=== PATIENT | male | born 1945 | race Caucasian/White ===

== ENCOUNTER → 2019-01-20 10:22 | Outpatient (CLI) | payer MEDICARE, BC ==
--- NOTE | 2019-01-23 11:12 | EC ---
PATIENT:LEONIDES LASSITER DATE OF SERVICE: 01/20/19 SEX: M MEDICAL RECORD: [id number] DATE OF : [birth year] [facility] AGE OF PAT[facility]: 73 ADMISSION DATE: 01/20/19 REFERRING PHYSICIAN: INTERPRETING PHYSICIAN: ELSY CALVILLO MD ECHOCARDIOGRAM REPORT ECHO CHARGES 4 ECHO COMPLETE Date: 01/20/19 CLINICAL DIAGNOSIS: HTN/MITRAL REGURG ECHOCARDIOGRAPHIC MEASUREMENTS (adult normal given) AC root (d.<3.7cm) 3.5 cm LV Septum d (<1.2 cm> 1.5 cm Valve Excursion 1.6 cm LV Septum (systole) 1.8 cm Left Atria (s.<4.0cm> 4.2 cm LVPW d(<1.2cm) 1.5 cm RV (d.<2.3cm) 3.4 cm LVPW (sytole) 1.8 cm LV diastole(<5.6CM) 5.6 cm MV E-F(>70mm/sec) cm LV systole 4.0 cm LVOT Diameter 2.0 cm MV exc.(>10mm) 1.6 cm Est.ejection fraction (50-75%) % DOPPLER: LVIT cm/sec A 57.0 cm/sec E 82.0 cm/sec LA cm/sec RVSP 19 mmHg LVOT 66 cm/sec AOP1/2T m/s Asc. Ao 87 cm/sec RVOT 63 cm/sec RA cm/sec PA 102 cm/sec AV Gradient Peak 3.01 mmHg AV Mean 1.55 mmHg AV Area 3.0 cm MV Gradient Peak 2.26 mmHg MV Mean 0.98 mmHg MV Area cm COMMENTS: Supervisor Telephone Clerks: 2 AUDRA ZURITA Academic Adviser: 3 Dr. Ruiz TAPE# PACS Pericardial Effusion N DATE OF SERVICE: Adequate 2D, color flow, spectral Doppler, and M-mode. LVH is present. LV internal dimensions are normal. Wall motion is normal. EF is greater than or equal to 55%. Aortic valve is tricuspid. No evidence of stenosis by Doppler interrogation. Left atrium is minimally dilated at 4.2 cm. Mitral valve shows no prolapse. Trace MR. Right-sided chambers grossly normal. Trace TR. TRANSINT:[id number] Voice Confirmation ID: [id number] DOCUMENT ID: [id number] ECHOCARDIOGRAM REPORT [id number] LEONIDES LASSITER,ELSY Venegas MD at 1112 CC: [id number] DICTATION DATE: 01/23/19830 SERVER ENGINEER: 01/23/19 1106 DEP CLI 01/20/19 [id number] [place] [address]
== END | disposition home or self-care (01) ==
LOC: D.HCCECHO 10:22
PROVIDERS: ATTEND Internal Medicine Interventional Cardiology
DX: I10 Essential (primary) hypertension (principal)

== ENCOUNTER 2020-05-30 11:01 | Day surgery (SDC) | payer MEDICARE, BC ==
[~2020-05-30] VITALS: Ht 177.8 cm; Wt 90.7 kg
--- NOTE | ~2020-05-30 | HEMODYNAMI ---
PATIENT:LEONIDES LASSITER MEDICAL RECORD: [id number] : 49 LOCATION:D.CAT ADMISSION DATE: 05/30/20 Generatedon:113:32 Patient name: LEONIDES LASSITER Patient #: [id number] SSN: [id number] : 1945 Date of study: 05/30/2020 Page: Of Hemodynamic Procedure Report Patient Data Patient Demographics Procedure consent was obtained First Name: LEONIDES Gender: Male Last Name: MAIKOL : 1945 Middle Initial: ANTONIO Age: 74 year(s) Patient #: [id number] Race: SSN: [id number] Additional ID: [id number] Contact details [address]: [address] [place] [address] State: [place] City: [place] Zip code: [address] Past Medical History Allergies: No known allergies Admission Admission Data Admission Date: 05/30/2020 Admission Time: 11:01 Arrival Date: 05/30/2020 Arrival Time: 0:00 Admit Source: Other Insurance Payor: Medicare [facility] #: [id number] Lab Results Lab Result Date: 05/30/2020 Lab Result Time: 0:00 Biochemistry Name Units Result Min Max BUN mg/dl 19 --(----)*- 7 18 Creatinine mg/dl 1 --(--*-)-- 0.6 1.3 eGFR ml/min 78 *-(----)-- 90 120 NONAFRICAN CBC Name Units Result Min Max Hematocrit % 43.5 --(*---)-- 42 54 Hemoglobin g/dl 14.7 --(-*--)-- 13.5 17.5 Procedure Procedure Types Cath Procedure Sedation Charges Moderate Sedation 10-24 minutes Peripheral Cath Diagnostic Procedure Expedition Supervisor Peripheral Procedures AFRO Diagnostic Procedure Description Procedure Date Procedure Date: 05/30/2020 Procedure Start Time: 13:07 Procedure End Time: 13:25 Procedure Staff Name Function Urvashi Botello RT Mateusz Jean RN Nurse Bala Foreman MD Performing Physician Kasie Zavala RT Monitor Indication Coronary risk factors Procedure Data Cath Procedure Fluoroscopy Diagnostic fluoroscopy Total fluoroscopy Time: 1.4 time: 1.4 min min Diagnostic fluoroscopy Total fluoroscopy dose: 321 dose: 321 mGy mGy Contrast Material Contrast Material Type Amount (ml) Isovue 370 85 Entry Location Entry Primary Successful Side Size Upsize Upsize Entry Closure Succes sful Closure Location (Fr) 1 (Fr) 2 (Fr) Remarks Device Remarks Femoral Right 5 Fr Exoseal artery Estimated blood loss: 5 ml Diagnostic catheters Device Type Used For End Catheter Placement DIAGNOSTIC UF 5Fr Procedure catheter ([id number]) Procedure Complications No complications Procedure Medications Medication Administration Route Dosage Oxygen etCO2 Nasal cannula 2 l/min Lidocaine 2% added to field 20 Heparin Flush Bag added to field 2 bags (1000units/500ml NS) 0.9% NaCl I.V. 100 ml/hr Versed I.V. 1 mg Fentanyl I.V. 50 mcg Versed I.V. 1 mg Fentanyl I.V. 50 mcg Versed I.V. 1 mg Hemodynamics Rest HGB: 14.7 (g/dl) Heart Rate: 72 (bpm) Snapshots Pre Cath Intra NCS Post Cath Vital Signs Time Heart Resp SPO2 etCO2 NIBP (mmHg) Rhythm Pain Sedation Rate (ipm) (%) (mmHg) Status Level (bpm) 12:56:36 73 16 98 0 167/70(118) NSR 0 (11) 10(A) , No pain 13:00:54 72 13 95 13.5 139/62(113) NSR 0 (11) 10(A) , No pain 13:05:14 73 10 96 0 130/63(101) NSR 0 (11) 9(A) , No pain 13:09:28 81 13 95 0 113/53(86) NSR 0 (11) 9(A) , No pain 13:13:40 70 10 94 0 109/57(90) NSR 0 (11) 9(A) , No pain 13:17:50 76 11 93 0 106/61(86) NSR 0 (11) 9(A) , No pain 13:22:00 70 12 97 34.6 110/59(96) NSR 0 (11) 10(A) , No pain 13:26:10 70 8 98 12.7 118/61(91) NSR 0 (11) 10(A) , No pain Medications Time Medication Route Dose Verified Delivered Reason Notes Eff ectiveness by by 12:55:56 Oxygen etCO2 2 Bala Buffie used for Nasal l/min [facility] Theodore Jean tomahawk weapon system operator cannula 12:56:03 Lidocaine 2% added 20ml Bala Bala for local to vial [facility] anesthetic field MD KRUGER 12:56:09 Heparin Flush added 2 Bala Bala used for Bag to bags [facility] procedure (1000units/500ml field MD KRUGER NS) 12:56:18 0.9% NaCl I.V. 100 Bala Buffie Per ml/hr St Theodore Jean RN physician 13:03:42 Versed I.V. 1 mg Bala Marlynie for AhsanTheodore Jean RN sedation 13:03:48 Fentanyl I.V. 50 Bala Buffie for mcg AhsanTheodore Jean RN sedation 13:06:00 Fentanyl I.V. 50 Bala Marlynie for mcg AhsanTheodore Jean RN sedation 13:06:57 Versed I.V. 1 mg Bala Buffie for AhsanTheodore Jean RN sedation 13:13:04 Versed I.V. 1 mg Bala Buffie for Ahsan Jean RN sedation Procedure Log Time Note 12:19:44 Informed consent obtained and on chart 12:20:06 Diagnostic Cath Status : Elective 12:20:33 Indication : Coronary risk factors 12:20:52 Arrival Date: 05/30/2020 12:00:00 AM 12:20:53 Admit Source: Other 12:20:56 Insurance Payor : Medicare 12:21:20 Patient allergic to No known allergies 12:22:06 Procedure Status Peripheral. 12:22:08 Time tracking: Regular hours (M-F 7:00 - 5:00) 12:22:12 Plan of Care:Hemodynamics will remain stable., Cardiac rhythm will remain stable., Comfort level will be maintained., Respiratory function will remain adequate., Patient/ family verbilizes understanding of procedure., Procedure tolerated without complication., Recovers from procedure without complications.. 12:22:19 H&P Date Dictated: 05/29/2020 Within 30 days and on chart.. 12:22:21 Pre-procedure instructions explained to patient. 12::22 Pre-op teaching completed and patient verbalized understanding. 12:22:24 Family unavailable. 12::25 Patient NPO since Midnight. 12::35 Stress Test: no; N/A ? 12::37 Sharps counted by scrub and verified by R.N. 12::37 Alarms reviewed by R. N. 12:24:04 Lab Result : Hemoglobin 14.7 g/dl 12:24:04 Lab Result : Hematocrit 43.5 % 12:24:04 Lab Result : eGFR NONAFRICAN 78 ml/min 12:24:04 Lab Result : BUN 19 mg/dl 12:24:04 Lab Result : Creatinine 1 mg/dl 12:24:28 Use device set Femoral Dx 12:45:00 Urvashi Botello RT(R) sent for patient. Start room use. 12:48:43 Patient received from Pre/Post Procedure Room to CCL 1 Alert and oriented. Tansferred to table in Supine position. 12:48:45 Warm blankets applied, and charity hugger turned on for patient comfort. 12:48:46 ECG and BP/O2 sat monitors applied to patient. 12:48:46 Correct patient and procedure confirmed by team. 12:55:20 Vital chart was started 12:55:56 Oxygen 2 l/min etCO2 Nasal cannula was administered by Landon Jean RN; used for procedure; Verbal order read back and verified. 12:56:03 Lidocaine 2% 20ml vial added to field was administered by Bala Foreman MD; for local anesthetic; Verbal order read back and verified. 12:56:09 Heparin Flush Bag (1000units/500ml NS) 2 bags added to field was administered by Bala Foreman MD; used for procedure; Verbal order read back and verified. 12:56:18 0.9% NaCl 100 ml/hr I.V. was administered by Landon Jean RN; Per physician; Verbal order read back and verified. 12:56:46 Is the patient allergic to Iodine/contrast media? No. 12:56:48 Was the patient premedicated? Yes 12:56:49 Is patient on blood thinner?No 12:56:50 Patient diabetic? No. 12:56:52 If diabetic: On Metformin? N/A 12:56:53 ----Pre-sedation anethsthesia assessment.---- 12:56:57 Previous problem with sedation/anesthesia? No ? 12:56:58 Snore? Yes 12:56:59 Sleep apnea? Yes 12:57:00 Deviated septum? No 12:57:01 Opens mouth fully? Yes 12:57:02 Sticks out tongue? Yes 12:57:05 Airway obstruction? Yes COPD 12:57:08 Dentures? No ? 12:57:12 Pre procedure: right dorsailis pedis pulse Inaccessible 12:57:16 Patient pain scale 0/10 ?. 12:57:21 IV patent on arrival in left antecubital with 0.9% NaCl at [facility]. 12:57:27 Full Disclosure recording started 12:57:28 Baseline sample Acquired. 12:57:34 Rhythm: sinus rhythm 12:57:40 Lab results completed and on chart. 12:57:44 Bilateral groins area was prepped with chlora-prep and draped in sterile fashion 12:57:47 Bag Decanter (2002S) opened to sterile field. 12:57:47 ACIST Syringe (16046) opened to sterile field. 12:57:48 Medline Cath Pack ([id number]) opened to sterile field. 12:57:50 ACIST Hand Control (94527) opened to sterile field. 12:57:51 ACIST Manifold (43325) opened to sterile field. 12:57:54 DIAGNOSTIC Multipack 5Fr catheter set (EX1322) opened to sterile field. 12:57:57 SHEATH 5FR Apex (PPI403) opened to sterile field. 12:57:59 EMERALD Guide Wire (478-408) opened to sterile field. 13:02:42 --------ALL STOP TIME OUT------ 13:02:43 Final Timeout: patient, procedure, and site verified with staff and physician. All members of the team are in agreement. 13:02:44 Right groin site verified by team. 13:02:48 Fire Safety Assessment: A--An alcohol-based skin anteseptic being used preoperatively., C--Open oxygen or nitrous oxide is being used., D--An ESU, laser, or fiber-optic light is being used. 13:02:50 Physical assessment completed. ASA score P 2 - A patient with mild systemic disease as per Bala Foreman MD. 13:03:01 Sedation plan: IV Moderate Sedation Medication:Versed, Fentanyl 13:03:01 2) 60-89 Mildly reduced kidney function, and other findings (as for stage 1) point to kidney disease. 13:03:02 Maximum allowable contrast dose (3.7 X eGFR X 0.75)219 ml. 13:03:42 Versed 1 mg I.V. was administered by Landon Jean RN; for sedation; Verbal order read back and verified. 13:03:48 Fentanyl 50 mcg I.V. was administered by Landon Jean RN; for sedation; Verbal order read back and verified. 13:06:00 Fentanyl 50 mcg I.V. was administered by Landon Jean RN; for sedation; Verbal order read back and verified. 13:06:57 Versed 1 mg I.V. was administered by Landon Jean RN; for sedation; Verbal order read back and verified. 13:07:46 Procedure started. 13:07:51 Local anesthetic to right femoral artery with Lidocaine 2% by Bala Foreman MD.INITIAL ACCESS ONLY 13:08:54 NEEDLE Tagora 18G 7cm Percutaneous Entry needle ([id number]) opened to sterile field. 13:10:06 A 5 Fr sheath was inserted into the Right Femoral artery 13:10:47 A DIAGNOSTIC UF 5Fr catheter ([id number]) was advanced over the wire and used for Procedure. 13:12:26 GLIDE WIRE ANGLE 260cm (NO5637) opened to sterile field. 13:13:04 Versed 1 mg I.V. was administered by Landon Jean RN; for sedation; Verbal order read back and verified. 13:13:21 Abdominal Aortagram was performed. 13:13:40 Injector settings: Ml/sec: 10, Volume: 20, 13:13:46 Right leg runoff performed. 13:18:53 Injector settings: Ml/sec: 10, Volume: 20, 13:18:57 Left leg runoff performed. 13:19:04 Injector settings: Ml/sec: 10, Volume: 20, 13:19:11 Right leg runoff performed. 13:19:56 Catheter removed. 13:20:00 EXOSEAL 5Fr (EX500) opened to sterile field. 13:20:04 Tegaderm 4 x 4 (1626W) opened to sterile field. 13:20:59 Sheath removed intact; hemostasis achieved with Exoseal to the Right Femoral artery. 13:21:01 Procedure ended.(Physican Out) 13:21:08 Fluoroscopy time 01.40 minutes. 13:21:17 Fluoroscopy dose: 321 mGy 13:21: Flurop Dose total: 321 13:21:25 Dose Area Product 18843 mGy/cm. 13:22:34 Contrast amount:Isovue 370 85ml. 13:22:37 Sharps counted by scrub and verified by R.N. 13:22:37 Maximum allowable dose exceeded? No. 13:22:41 Post-op/insertion site Right Femoral artery dressed using a 4 x 4 and Tegaderm. 13:22:46 Post right femoral artery:stable, soft, clean and dry 13:22:48 Post Procedure Pulses reassessed and unchanged 13:22:53 Post-procedure physical assessment completed. ASA score P 2 - A patient with mild systemic disease as per Bala Foreman MD. 13:22:56 Post procedure rhythm: unchanged. 13:22:59 Estimated blood loss: 5 ml 13:23:01 Patient needs reinforcement of post procedure teaching. 13:23:01 Post procedure instruction explained to patient.Patient verbalizes understanding. 13:23:18 Procedure type changed to Cath procedure, Sedation Charges, Moderate Sedation 10-24 minutes, Peripheral Cath Diagnostic Procedure, Expedition Supervisor Peripheral Procedures, AFRO Diagnostic 13:25:10 Procedure and supply charges have been captured, reviewed, submitted and are correct. 13:25:14 Procedure Complication : No complications 13:25:21 Vital chart was stopped 13:25:28 AFRO Findings: PVD: MD will discuss options w/ pt 13:25:30 See physician's report for complete and final results. 13:25:30 Operative report dictated upon procedure completion. 13:25:32 Report given to Pre/Post Procedure Room. 13:25:35 Patient transfered to Pre/Post Procedure Room with Stretcher. 13:25:37 Full Disclosure recording stopped 13:25:37 Procedure ended. 13:25:49 End room use (Document Last) 13:26:02 End room use (Document Last) 13:26:16 End room use (Document Last) Device Usage Item Name Manufacture Quantity Catalog Hospital Part Current Minimal Lot# / Number Charge Number Stock Stock Serial# Code [facility] 1 06061 738646 663232 191274 20 Syringe Medical (25911) Systems Inc Bag Decanter Microtek 1 2001S 018998 16888 240699 5 (2001S) Medical Inc. Medline Cath Medline 1 [id number] 191505 82678 134001 5 Pack ([id number]) ACIST Hand Acist 1 55068 658752 958364 930270 5 Control Medical (32978) Systems Inc ACIST Acist 1 20667 997863 429304 454546 5 Manifold Medical (69415) Systems Inc DIAGNOSTIC Cardinal 1 RM9283 615056 02753 960782 30 Multipack Elderscan 5Fr catheter set (HK5007) SHEATH 5FR Terumo 1 NGE979 743184 621799 173872 5 Apex (ZUA067) EMERALD Cardinal 1 502-455 629696 080064 338547 5 Guide Wire Health (502-455) NEEDLE DE Spirits Medical 1 H87912 338138 76447 967305 5 18G 7cm Percutaneous Entry needle (M44042) DIAGNOSTIC Cardinal 1 [id number] 317346 528942 575009 10 UF 5Fr Health catheter ([id number]) GLIDE WIRE Terumo 1 MN7090 463543 362829 835514 5 ANGLE 260cm (SU6598) EXOSEAL 5Fr Cardinal 1 EX500 334156 775899 743830 10 (EX500) Health Tegaderm 4 x 3M 1 1626W 394188 870277 098091 5 4 (1626W) Signature Audit Radiant Stage Time Signature Unsigned Intra-Procedure 05/30/2020 Kasie Zavala 1:26:02 PM RT(R) Intra-Procedure 05/30/2020 Landon Jean RN 1:26:16 PM Intra-Procedure 05/30/2020 Bala Foreman MD 1:26:41 PM Theodore KRUGER 05/30/2020 1:31:39 PM Intra-Procedure 05/30/2020 Kasie Zavala 1:32:04 PM RT(R) Intra-Procedure 05/30/2020 Bala Becker 1:32:18 PM Theodore KRUGER [id number] [place] [address]
[2020-05-30] MEDS ORDERED: METOPROLOL TART50 MG PO (11:15)
[2020-05-30] MEDS ORDERED: RELAFEN750 MG PO (11:15)
[2020-05-30] MEDS ORDERED: COZAAR50 MG PO (11:15)
[2020-05-30] MEDS ORDERED: BAYER CHEWABLE81 MG PO (11:16)
[2020-05-30] MEDS ORDERED: VITAMIN C500 M1 PO (11:16)
[2020-05-30] MEDS ORDERED: BUMEX2 MG PO (11:16)
[2020-05-30] MEDS ORDERED: OMEGA-3100 MG PO (11:17)
[2020-05-30] MEDS ORDERED: DULERA 200 MCG8.8 GM INH (11:17)
[2020-05-30] MEDS ORDERED: COMBIVENT RESPIM4 GM INH (11:18)
[2020-05-30] MEDS ORDERED: POTASSIUM99 M1 PO (11:18)
[2020-05-30] MEDS ORDERED: MAG-OX 400 MG400 MG PO (11:19)
[2020-05-30 11:43] VITALS: BP 178/76; Ht 177.8 cm; Wt 90.7 kg
[2020-05-30 11:48] LABS: BASOPHILS 0.1 % (0-2); EOSINOPHILS 0.7 % (0-7); HEMATOCRIT 43.5 % (42.0-54.0); HEMOGLOBIN 14.7 g/dL (13.5-17.5); IMMATURE GRANULOCYTES 0.1 % (0-5); LYMPHOCYTE ABS# 1.62 10x3/uL (1.32-3.57); LYMPHOCYTES 19.1 % (15-50); MCH 32.2 pg (26.0-34.0); MCHC 33.8 g/dL (31.0-37.0); MCV 95.2 fL (80.0-100.0); MEAN PLATELET VOLUME 10.4 fL (7.4-10.4); MONOCYTES 9.8 % (2-11); NEUTROPHIL ABS# 5.93 10x3/uL (1.78-5.38); NEUTROPHILS 70.2 % (40-80); PLATELET COUNT 172 10x3/uL (130-400); RBC 4.57 10x6/uL (4.20-6.10); RDW 12.7 % (11.5-14.5); WBC 8.5 10x3/uL (4.8-10.8)
[2020-05-30 12:06] LABS: ALT (SGPT) 31 U/L (10-68); CALC OSMOLALITY 270 mosm/kg (275-300); CALCIUM 9.3 mg/dL (8.5-10.1); CARBON DIOXIDE 29.9 mmol/L (21.0-32.0); CHLORIDE - SERUM 97 mmol/L (98-107); CHOLESTEROL, TOTAL 154 mg/dL (0-200); GLUCOSE 113 mg/dL (74-106); HDL CHOLESTEROL 52 mg/dL (32-96); LDL CHOLESTEROL 83 mg/dL (0-100); LDL-HDL RATIO 1.6 ratio (1.5-3.5); POTASSIUM - SERUM 4.3 mmol/L (3.5-5.1); SODIUM 134 mmol/L (136-145); TRIGLYCERIDE 97 mg/dL (30-200); UREA NITROGEN 19 mg/dL (7-18); eGFR NON AFRICAN AMERICAN 78 mL/min (90-120)
--- NOTE | 2020-05-30 13:45 | NUR ---
ARRIVES TO ROOM 5 PLACED ON MONITORS ALARMS ON, CALL LIGHT WITH IN REACH, IV INFUSING PER ORDERS , PT IS GIVEN INSTRUCTTIONS TO LIE FLAT WITH HEAD ON PILLOW, SEE POULTRY BONER.
--- NOTE | 2020-05-30 14:15 | NUR ---
PT MUMBLING FREQUENTLY , PT IS GIVEN TIME FRAME ON LAYING FLAT AND KEEPING HEAD ON PILLOW VERBALIZES UNDERSTANDING , VSS, SR , RIGHT GROIN SOFT WITH NO OOZING OR BLEEDING NOTED, NO PALPABLE HEMATOMA, RIGHT LOWER EXTREMITY WARM WITH DIMINISHED PEDAL PULSE, PT DENIES PAIN OR NEEDS , IV INFUSIING PER ORDERS, CALL LIGHT WITHIN REACH, SIDERAILS UP X 2
--- NOTE | 2020-05-30 14:30 | NUR ---
REPOSTIONED PT FOR COMFORT, VSS, SR , RIGHT GROIN STABLE / SOFT NO OOZING OR BLEEDING NO PALPALBE HEMATOMA, DIMINISHED PEDAL PULSES, SENSATION INTACT, DENIES PAIN OR NEEDS, IV INFUSING PER ORDERS, CALL LIGHT WITHIN REACH
--- NOTE | 2020-05-30 14:45 | NUR ---
PT RESTING QUIETLY , VSS, SR , RIGHT GROIN SOFT WITHOUT OOZING OR BLEEDING NO PALPABLE HEMATOMA, EXTREMITY WARM WITH DIMINISHED PEDAL PULSES, IV INFUSING PER ORDERS, DENIES PAIN OR NEEDS , URINAL GIVEN VOIDS 500CC CLEAR YELLOW URINE, CALL LIGHT WITHIN REACH, UPDATE GIVEN ON PLAN OF CARE, PT VERBALIZED UNDERSTANDING
--- NOTE | 2020-05-30 14:50 | NUR ---
PT PLACED IN SEMI FOWLERS POSITION, SANDWICH AND WATER GIVEN, DISCHARGE TEACHING STARTED. PT HAS NO NEEDS AT THIS TIME
--- NOTE | 2020-05-30 15:20 | NUR ---
IV REMOVED PER ORDERS CATHETER INTACT, RIGHT GROIN STABLE WITH NO OOZING OR BLEEDING NO PALPABLE HEMATOMA, DIMINISHED PEDAL PULSE, SKIN WARM AND INTACT, PT CONSUMED 100% SANDWICH. DISCHARGE INSTRUCTIONS REVIEWED WITH PT AND VERBALIZED UNDERSTANDING, VSS, SR ON MONITORS, DENIES PAIN OR NEEDS AT THIS TIME.
--- NOTE | 2020-05-30 15:38 | OP ---
PATIENT NAME: LEONIDES LASSITER MEDICAL RECORD: [id number] :49 LOCATION:D.CAT ADMISSION DATE: SURGEON: ELSY CALVILLO MD DATE OF OPERATION: 05/30/2020 PROCEDURE: AFRO. DESCRIPTION OF PROCEDURE: After right femoral artery was cannulated via modified Seldinger technique, the pigtail catheter was placed into the descending aorta at the level of the renal arterials and aortofemoral runoff was performed. 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 No evidence of dissection, no evidence of thrombus noted. Left system; the left iliac is occluded proximally with no true baking or other available approach for intervention from above. The distal appears to be deep femoral artery, constitutes late distally with poor distal runoff, no more than one vessel. The right iliac system; the right common iliac appears to be occluded in its mid portion. There is late filling again of the deep femoral artery. The superficial femoral artery itself again is totally occluded with minimal late filling distally with poor distal runoff. IMPRESSION AND PLAN: Severe peripheral vascular disease, does not appear amenable to percutaneous intervention. Dr. Hancock will be consulted for possible other options; however, this may be just simply minimal management, exercise and smoking cessation. TRANSINT:[id number] Voice Confirmation ID: [id number] DOCUMENT ID: [id number] ELSY CALVILLO MD at 1538 CC: [id number] DICTATION DATE: 05/30/20 1335 ICE CREAM VAN VENDOR: 05/30/20 1436 [facility] [address] [place] [address]
--- NOTE | 2020-05-30 15:40 | NUR ---
PT DISCHARGED PER ORDERS, ALL INSTRUCTIONS REVIEWED AND VERBALIZED UNDERSTANDING , VOIDED 200CC CLEAR , ASSISTED WITH DRESSING. PT DENIES PAIN OR NEEDS, TAKEN TO PRIVATE VEHICLE VIA WHEELCHAIR AND INSTRUCTIONS ALSO GIVEN TO PT DTR, NO QUESTIONS OR CONCERNS
== END 2020-05-30 15:40 | disposition home or self-care (01) ==
LOC: D.CATH 11:01
PROVIDERS: ATTEND Internal Medicine Interventional Cardiology
DX: I10 Essential (primary) hypertension (principal); I25.10 Atherosclerotic heart disease of native coronary artery without angina pectoris; E78.5 Hyperlipidemia, unspecified; I73.9 Peripheral vascular disease, unspecified

== ENCOUNTER → 2020-06-12 16:01 | Outpatient (CLI) | payer MEDICARE, BC ==
[2020-05-30 11:43] VITALS: BMI 28.6
[~2020-06-12 16:01] MED LIST: BAYER CHEWABLE81 MG PO; BUMEX2 MG PO; COMBIVENT RESPIM4 GM INH; COZAAR50 MG PO; DULERA 200 MCG8.8 GM INH; MAG-OX 400 MG400 MG PO; METOPROLOL TART50 MG PO; OMEGA-3100 MG PO; POTASSIUM99 M1 PO; RELAFEN750 MG PO; VITAMIN C500 M1 PO
== END | disposition home or self-care (01) ==
LOC: D.LAB 15:30
PROVIDERS: ATTEND Thoracic Surgery (Cardiothoracic Vascular Surgery)
DX: Z11.52 Encounter for screening for COVID-19 (principal)

== ENCOUNTER → 2020-06-13 10:56 | Outpatient (CLI) | payer MEDICARE, BC ==
[2020-05-30 11:43] VITALS: BMI 28.6
[2020-06-13 11:34] LABS: SARS-CoV-2 ANTIGEN NEGATIVE- SARS-COV-2 (NEGATIVE)
== END | disposition home or self-care (01) ==
LOC: D.RT 10:56
PROVIDERS: ATTEND Thoracic Surgery (Cardiothoracic Vascular Surgery)
DX: I73.9 Peripheral vascular disease, unspecified (principal)

== ENCOUNTER → 2020-06-19 10:49 | Outpatient (CLI) | payer MEDICARE, BC ==
[2020-05-30 11:43] VITALS: BMI 28.6
== END | disposition home or self-care (01) ==
LOC: D.US 10:49
PROVIDERS: ATTEND Thoracic Surgery (Cardiothoracic Vascular Surgery)
DX: I65.23 Occlusion and stenosis of bilateral carotid arteries (principal)

== ENCOUNTER 2020-07-18 11:48 | Inpatient (IN) | payer MEDICARE, BC ==
[~2020-07-18] VITALS: Ht 177.8 cm; Wt 98.9 kg
[2020-07-18] MEDS ORDERED: INCRUSE ELLI62.5 MCG INH (12:28)
[2020-07-18 13:08] LABS: BASOPHILS 0.1 % (0-2); EOSINOPHILS 0.6 % (0-7); HEMATOCRIT 41.8 % (42.0-54.0); IMMATURE GRANULOCYTES 0.4 % (0-5); LYMPHOCYTE ABS# 1.34 10x3/uL (1.32-3.57); MCH 32.6 pg (26.0-34.0); MCHC 33.5 g/dL (31.0-37.0); MCV 97.2 fL (80.0-100.0); NEUTROPHIL ABS# 4.94 10x3/uL (1.78-5.38); NEUTROPHILS 69.9 % (40-80); PLATELET COUNT 179 10x3/uL (130-400); RDW 13.1 % (11.5-14.5); WBC 7.1 10x3/uL (4.8-10.8)
[2020-07-18 13:18] LABS: APTT 32.4 SECONDS (22.8-39.4); INR 1.17 (0.85-1.17); PROTIME 13.8 SECONDS (11.6-15.0)
[2020-07-18 13:22] LABS: ALBUMIN 4.3 g/dL (3.4-5.0); ALKALINE PHOSPHATASE 64 U/L (30-120); ALT (SGPT) 34 U/L (10-68); BILIRUBIN - TOTAL 0.38 mg/dL (0.2-1.3); CALC OSMOLALITY 276 mosm/kg (275-300); CARBON DIOXIDE 32.5 mmol/L (21.0-32.0); CHLORIDE - SERUM 100 mmol/L (98-107); CREATININE - SERUM 0.7 mg/dL (0.6-1.3); GLUCOSE 116 mg/dL (74-106); POTASSIUM - SERUM 4.4 mmol/L (3.5-5.1); PROTEIN - SERUM 7.9 g/dL (6.4-8.2); SODIUM 137 mmol/L (136-145); UREA NITROGEN 17 mg/dL (7-18); eGFR NON AFRICAN AMERICAN > 90 mL/min (90-120)
[2020-07-18 13:33] LABS: BILIRUBIN NEGATIVE (NEGATIVE); KETONE NEGATIVE (NEGATIVE); NITRITE NEGATIVE (NEGATIVE); UROBILINOGEN NORMAL mg/dL (< 2)
[2020-07-23] VITALS (39 sets, daily range): BP systolic 82–196; BP diastolic 38–86; BMI 28.1; BMI 32.0
[2020-07-23] MEDS ORDERED: OMEGA-3100 MG PO (05:08)
--- NOTE | 2020-07-23 14:44 | NUR ---
ITA-3841-PLP'D TO CVICU S/P AORTOBIFEMORAL BYPASS GRAFT. VENT SETTINGS PER RT. ALL [id number] EQUIPMENT ATTACHED AND ALARMS SET. DOPPLER PULSES. DR RUSH HERE. DR MATTSON NOTIFIED BY RT. ABG'S DONE AND CXR.
--- NOTE | 2020-07-23 17:33 | NUR ---
ABG'S PER RT AND CALLED TO DR MATTSON. PT EXTUBATED TO 4LNC AT 1700.
--- NOTE | 2020-07-23 21:32 | NUR ---
TEMP AT 1900 101.1. AFTER ASSESSEMENT TEMP 101.[address] RUSH ON UNIT. UPDATED ON PT STATUS. INTO SEE PT. ORDER FOR BLOOD CX AND SPUTUM CX. ONE FROM [facility] AND ONE FROM [facility] ORDERED PER DR RUSH. DRAWN 2044 AND 2054. FAMILY AT AND SPOKE TO DR RUSH WELL MYSELF. QUESTIONS ANSWERED. VERBALIZED UNDERSTANDING. WILL CONT TO MONITOR CLOSELY.ABLE TO DOPPER PEDAL PULSES. DRESSINGS TO MIDLINE ABD AND BILATERAL FEMS INTACT. SURROUNDING TISSUE SOFT.
--- NOTE | 2020-07-23 22:13 | NUR ---
PT PAIN MANAGEMENT VIA EPIDURAL WITH FENT/BUP @6ML CONT WITH 3ML Q15MIN LMFT DOSE. ONE LMFT DOSE GIVEN PT HURTING AND REQUEST. RT TO BS TO SETUP BIPAP FOR NIGHT PT WEARS AT HOME AT NIGHT.
[2020-07-24] VITALS (20 sets, daily range): BP systolic 85–144; BP diastolic 40–65; BMI 32.5
[2020-07-24 05:39] LABS: ALBUMIN 2.8 g/dL (3.4-5.0); ALKALINE PHOSPHATASE 41 U/L (30-120); ALT (SGPT) 31 U/L (10-68); CALC OSMOLALITY 283 mosm/kg (275-300); CALCIUM 7.4 mg/dL (8.5-10.1); CARBON DIOXIDE 26.2 mmol/L (21.0-32.0); CHLORIDE - SERUM 106 mmol/L (98-107); GLUCOSE 154 mg/dL (74-106); MAGNESIUM - SERUM 2.8 mg/dL (1.8-2.4); PHOSPHOROUS 3.9 mg/dL (2.5-4.9); POTASSIUM - SERUM 4.3 mmol/L (3.5-5.1); PROTEIN - SERUM 5.4 g/dL (6.4-8.2); SODIUM 139 mmol/L (136-145); UREA NITROGEN 21 mg/dL (7-18); eGFR NON AFRICAN AMERICAN 78 mL/min (90-120)
[2020-07-24 05:53] LABS: HEMATOCRIT 31.7 % (42.0-54.0); HEMOGLOBIN 10.5 g/dL (13.5-17.5); MCH 32.4 pg (26.0-34.0); MCHC 33.1 g/dL (31.0-37.0); MCV 97.8 fL (80.0-100.0); MEAN PLATELET VOLUME 10.5 fL (7.4-10.4); RBC 3.24 10x6/uL (4.20-6.10); RDW 13.5 % (11.5-14.5); WBC 10.6 10x3/uL (4.8-10.8)
[2020-07-24 11:47] LABS: CHOL - HDL RATIO 2.8 ratio (2.3-4.9); LDL-HDL RATIO 1.2 ratio (1.5-3.5)
--- NOTE | 2020-07-24 15:04 | OP ---
PATIENT NAME: LEONIDES LASSITER MEDICAL RECORD: [id number] :49 LOCATION:[facility] D.CV06 ADMISSION DATE:07/23/20 SURGEON: ZACH RUSH MD DATE OF OPERATION: 07/23/2020 SURGEON: Zach Rush MD PROCEDURE PERFORMED: Aortobifemoral bypass for repair of abdominal aortic aneurysm and iliac disease. PREOPERATIVE DIAGNOSIS: Iliac and femoral stenosis and occlusion. POSTOPERATIVE DIAGNOSIS: Iliac and femoral stenosis and occlusion. ANESTHESIA: General endotracheal anesthesia and epidural anesthesia. BLOOD LOSS: 400 cc with Cell Saver. COMPLICATIONS: None. SPECIMENS: Aortic plaque and wall of aortic aneurysm excised. CONDITION: Stable. DISPOSITION: ICU. OPERATIVE FINDINGS: As expected completely calcified femorals bilaterally, not amenable to bypass. The superficial femoral was soft on the left, but had no lumen nor did have a lumen on the right and on the left the profunda femoral had a large posterior wall calcification, but had a good lumen on the left more distal profunda due to calcification of the proximal profunda was the outflow. DESCRIPTION OF PROCEDURE: After the case, the patient had Doppler of the left posterior tibial that he did not have preop where he had absent Doppler pulses on the left and the patient had both dorsalis pedis and posterior tibial on the right after bypass when he only had the right posterior tibial preop. Moderately calcified aorta at the renal origin with a reasonable neck for clamping and 3.5 cm aneurysm with significant thrombus. The distal aorta was oversewn. The inferior mesenteric artery was not patent, 14 x 7 bifurcated Hemashield graft was used. OPERATIVE INDICATION: Abdominal aortic aneurysm and severe iliac and femoral disease. PROCEDURE IN DETAIL: The patient was brought to the operating suite. General anesthesia was obtained, the patient was prepped and draped, both groins were opened. Common femoral, profunda femoral, and superficial femoral were dissected out, and on the left, this required dividing the profunda femoral vein to visualize the deep profunda down into the muscle level. Midline abdominal incision was made. Abdominal cavity was opened. NG tube was in appropriate position and the abdominal contents were inspected. The transverse mesocolon was lifted. Small bowel was packed off to the right, retroperitoneum was identified. Sigmoid colon was packed off to the left, OPERATIVE REPORT [id number] MAIKOL,LEONIDES ANTONIO retroperitoneum was incised and the inferior mesenteric vein was mobilized to the left up to the level of the renal vein where the neck of the aneurysm was encircled 270 degrees. More distally, there was severe calcification. Tunnels were made between the retroperitoneum in both groins and heparin was given. After the heparin circulated, inflow clamp was placed and the distal aorta was clamped. The aorta was divided. All bits of the grumous like material and chronic thrombus were removed. One lumbar vessel was included in the proximal suture line, end-to-end anastomosis was performed. Several pledgeted sutures on the back wall. The backbleeding of the distal aorta was oversewn with pledgeted suture. Grafts were brought through the retroperitoneum in both groins. Anastomosis to the profunda femoral, flow restored first of the proximal direction of distally. Good Doppler signals. Good augmentation. Protamine was given. Thorough antibiotic irrigation was performed, hemostasis was assured. The retroperitoneum was closed. Abdominal contents were returned to anatomic position and thorough irrigation was performed. Abdominal fascia closed with running PDS subcutaneous and skin clips were used and then on the groins. Both groins were closed in 3 layers. The patient is stable to ICU. TRANSINT:[id number] Voice Confirmation ID: [id number] DOCUMENT ID: [id number] ZACH RUSH MD at 1504 CC: CLAUDE YAÑEZ MD and ELSY CALVILLO MD [id number] DICTATION DATE: 07/23/20 165 RESIDENTIAL PROPERTY CONSULTANT: 07/23/20 2326 ADM IN [place] [id number] [place] [id number]
--- NOTE | 2020-07-24 19:34 | NUR ---
pt resting and moaning. just did IS with daughter. has been refusing. temp elevated. dr tovar aware. aggressive pulm exercise throughout night. explained to pt and daughter. off love. bp stable. remains of ivf. feet warm to touch. incision to abd and bilateral fems intact. surrounding tissue soft. will cont to monitor.
[2020-07-25] VITALS (23 sets, daily range): BP systolic 98–156; BP diastolic 46–65
[2020-07-25 05:21] LABS: HEMATOCRIT 31.3 % (42.0-54.0); HEMOGLOBIN 10.2 g/dL (13.5-17.5); MCH 32.2 pg (26.0-34.0); MCHC 32.6 g/dL (31.0-37.0); MCV 98.7 fL (80.0-100.0); MEAN PLATELET VOLUME 10.6 fL (7.4-10.4); RBC 3.17 10x6/uL (4.20-6.10); RDW 13.4 % (11.5-14.5); WBC 12.7 10x3/uL (4.8-10.8)
[2020-07-25 06:17] LABS: ALBUMIN 2.7 g/dL (3.4-5.0); ALKALINE PHOSPHATASE 45 U/L (30-120); BILIRUBIN - TOTAL 1.01 mg/dL (0.2-1.3); CALC OSMOLALITY 283 mosm/kg (275-300); CALCIUM 7.9 mg/dL (8.5-10.1); CARBON DIOXIDE 24.6 mmol/L (21.0-32.0); CHLORIDE - SERUM 106 mmol/L (98-107); CREATININE - SERUM 0.9 mg/dL (0.6-1.3); GLUCOSE 160 mg/dL (74-106); MAGNESIUM - SERUM 2.8 mg/dL (1.8-2.4); POTASSIUM - SERUM 4.5 mmol/L (3.5-5.1); PROTEIN - SERUM 5.8 g/dL (6.4-8.2); SODIUM 140 mmol/L (136-145); UREA NITROGEN 19 mg/dL (7-18); eGFR NON AFRICAN AMERICAN 88 mL/min (90-120)
[2020-07-25 06:18] LABS: ALT (SGPT) 52 U/L (10-68); PHOSPHOROUS 2.2 mg/dL (2.5-4.9)
--- NOTE | 2020-07-25 11:37 | NUR ---
A LINE DCD TIP INTACT
--- NOTE | 2020-07-25 13:27 | NUR ---
PTS DAUGHTER AT BEDSIDE THIS AM, ASSISTING IN ENCOURAGING PT TO DO IS AND FLUTTER HOURLY, PT COMPLAINT AT THIS TIME
[2020-07-26] VITALS (24 sets, daily range): BP systolic 119–146; BP diastolic 46–65
[2020-07-26 06:01] LABS: HEMATOCRIT 30.1 % (42.0-54.0); HEMOGLOBIN 9.6 g/dL (13.5-17.5); MCH 32.2 pg (26.0-34.0); MCHC 31.9 g/dL (31.0-37.0); MEAN PLATELET VOLUME 10.7 fL (7.4-10.4); RBC 2.98 10x6/uL (4.20-6.10); RDW 13.4 % (11.5-14.5); WBC 10.7 10x3/uL (4.8-10.8)
[2020-07-26 06:25] LABS: ALBUMIN 2.3 g/dL (3.4-5.0); ALKALINE PHOSPHATASE 56 U/L (30-120); ALT (SGPT) 48 U/L (10-68); BILIRUBIN - TOTAL 1.65 mg/dL (0.2-1.3); CALC OSMOLALITY 284 mosm/kg (275-300); CARBON DIOXIDE 23.7 mmol/L (21.0-32.0); CHLORIDE - SERUM 108 mmol/L (98-107); CREATININE - SERUM 0.9 mg/dL (0.6-1.3); GLUCOSE 159 mg/dL (74-106); MAGNESIUM - SERUM 2.6 mg/dL (1.8-2.4); PHOSPHOROUS 1.9 mg/dL (2.5-4.9); POTASSIUM - SERUM 4.7 mmol/L (3.5-5.1); PROTEIN - SERUM 5.8 g/dL (6.4-8.2); SODIUM 140 mmol/L (136-145); UREA NITROGEN 22 mg/dL (7-18); eGFR NON AFRICAN AMERICAN 88 mL/min (90-120)
--- NOTE | 2020-07-26 09:04 | NUR ---
Pt resting in bed and is awake now and off bipap. The Pt has 2L of O2 per NC on. Assessment and vitals per flow sheet, meds per MAR. The Pt has an epidural that is being managed the anesthesia. The Pt stated that he feels better today and is ready to get home. The pt still has an NGT to LIS and bowel sounds are hypoactive at this time. Pedal pulses are heard via doppler bilateraly. Pt was positioned for comfort, call light in reach, bed in low position. TV turned on per Pt request, will continue to monitor.
--- NOTE | 2020-07-26 10:44 | NUR ---
Nutrition Follow-up: POD 3 aorto bifemoral bypass. Continues to have NGT to LIS. Discussed in IDT rounds. Nursing reports hypoactive BS. KUB ordered. Diet: NPO x 3 days Wt: 230# (07/25) Labs noted: Glu 159, Ca 8.0, PO4 1.9, Mg 2.6, Alb 2.3 Meds noted: Protonix, D5 1/2NS KCl @ 75 -If unable to advance diet within the next 24 hrs, rec consider nutrition support (Procal?). -RD follow-up: 07/29
[2020-07-27] VITALS (27 sets, daily range): BP systolic 113–162; BP diastolic 49–87
--- NOTE | 2020-07-27 00:39 | NUR ---
PT REQUESTED TO BE PLACED ON BIPAP SO HE COULD SLEEP, BIPAP TURNED ON, PT RESTING IN BED. WILL CONTINUE TO MONITOR
--- NOTE | 2020-07-27 02:33 | NUR ---
PT REQUESTED TO HAVE BIPAP TAKEN OFF. BIPAP REMOVED. WILL CONTINUE TO MONITOR PT
--- NOTE | 2020-07-27 04:10 | NUR ---
WENT IN TO DRAW BLOOD. CVL DRESSING HAD COME UNATTACHED ON SUPERIOR SIDE OF DRESSING. OLD DRESSING WAS REMOVED, CLEAN INSERTION SITE AND APPLIED NEW DRESSING. TOLERATED WELL, NO COMPLAINTS AT THIS TIME. WILL CONTINUE TO MONITOR
[2020-07-27 05:09] LABS: BASOPHILS 0.1 % (0-2); EOSINOPHILS 0.1 % (0-7); HEMATOCRIT 28.2 % (42.0-54.0); HEMOGLOBIN 9.1 g/dL (13.5-17.5); IMMATURE GRANULOCYTES 0.2 % (0-5); LYMPHOCYTE ABS# 0.67 10x3/uL (1.32-3.57); LYMPHOCYTES 6.5 % (15-50); MCH 32.4 pg (26.0-34.0); MCHC 32.3 g/dL (31.0-37.0); MCV 100.4 fL (80.0-100.0); MONOCYTES 13.3 % (2-11); NEUTROPHIL ABS# 8.29 10x3/uL (1.78-5.38); NEUTROPHILS 79.8 % (40-80); PLATELET COUNT 138 10x3/uL (130-400); RBC 2.81 10x6/uL (4.20-6.10); RDW 13.2 % (11.5-14.5); WBC 10.4 10x3/uL (4.8-10.8)
[2020-07-27 05:10] LABS: INR 1.56 (0.85-1.17); PROTIME 17.3 SECONDS (11.6-15.0)
[2020-07-27 05:20] LABS: ALBUMIN 2.1 g/dL (3.4-5.0); ALKALINE PHOSPHATASE 59 U/L (30-120); ALT (SGPT) 47 U/L (10-68); CALC OSMOLALITY 293 mosm/kg (275-300); CALCIUM 8.1 mg/dL (8.5-10.1); CARBON DIOXIDE 25.1 mmol/L (21.0-32.0); CHLORIDE - SERUM 112 mmol/L (98-107); CREATININE - SERUM 0.9 mg/dL (0.6-1.3); GLUCOSE 147 mg/dL (74-106); LDH 202 U/L (85-227); MAGNESIUM - SERUM 2.8 mg/dL (1.8-2.4); POTASSIUM - SERUM 4.4 mmol/L (3.5-5.1); PROTEIN - SERUM 5.8 g/dL (6.4-8.2); SODIUM 144 mmol/L (136-145); UREA NITROGEN 23 mg/dL (7-18); eGFR NON AFRICAN AMERICAN 88 mL/min (90-120)
[2020-07-27 05:26] LABS: PHOSPHOROUS 2.5 mg/dL (2.5-4.9)
[2020-07-28] VITALS (24 sets, daily range): BP systolic 103–152; BP diastolic 46–85
[2020-07-28 06:32] LABS: BASOPHILS 0.2 % (0-2); EOSINOPHILS 0.6 % (0-7); HEMATOCRIT 29.6 % (42.0-54.0); HEMOGLOBIN 9.6 g/dL (13.5-17.5); IMMATURE GRANULOCYTES 0.3 % (0-5); LYMPHOCYTE ABS# 0.89 10x3/uL (1.32-3.57); LYMPHOCYTES 7.1 % (15-50); MCH 32.5 pg (26.0-34.0); MCHC 32.4 g/dL (31.0-37.0); MCV 100.3 fL (80.0-100.0); MEAN PLATELET VOLUME 10.8 fL (7.4-10.4); MONOCYTES 13.5 % (2-11); NEUTROPHIL ABS# 9.89 10x3/uL (1.78-5.38); NEUTROPHILS 78.3 % (40-80); RBC 2.95 10x6/uL (4.20-6.10); RDW 13.3 % (11.5-14.5); WBC 12.6 10x3/uL (4.8-10.8)
[2020-07-28 06:34] LABS: PLATELET COUNT 187 10x3/uL (130-400)
[2020-07-28 07:10] LABS: ALKALINE PHOSPHATASE 66 U/L (30-120); ALT (SGPT) 50 U/L (10-68); BILIRUBIN - TOTAL 2.97 mg/dL (0.2-1.3); CALC OSMOLALITY 294 mosm/kg (275-300); CALCIUM 8.4 mg/dL (8.5-10.1); CARBON DIOXIDE 23.7 mmol/L (21.0-32.0); CHLORIDE - SERUM 112 mmol/L (98-107); CREATININE - SERUM 0.9 mg/dL (0.6-1.3); GLUCOSE 153 mg/dL (74-106); MAGNESIUM - SERUM 2.7 mg/dL (1.8-2.4); PHOSPHOROUS 2.8 mg/dL (2.5-4.9); POTASSIUM - SERUM 4.8 mmol/L (3.5-5.1); PROTEIN - SERUM 6.1 g/dL (6.4-8.2); SODIUM 145 mmol/L (136-145); UREA NITROGEN 22 mg/dL (7-18); eGFR NON AFRICAN AMERICAN 88 mL/min (90-120)
--- NOTE | 2020-07-28 12:09 | NUR ---
PT REMOVED DRG TO CVL WITH "SCRATCHING"-SITE EXPOSED-CVL DRG DONE WITH PT SITTING UP IN CHAIR-
[2020-07-29] VITALS (22 sets, daily range): BP systolic 104–158; BP diastolic 51–79
[2020-07-29 04:18] LABS: BASOPHILS 0.1 % (0-2); EOSINOPHILS 1.4 % (0-7); HEMOGLOBIN 9.5 g/dL (13.5-17.5); IMMATURE GRANULOCYTES 0.7 % (0-5); LYMPHOCYTE ABS# 0.91 10x3/uL (1.32-3.57); LYMPHOCYTES 8.2 % (15-50); MCH 31.5 pg (26.0-34.0); MCHC 31.7 g/dL (31.0-37.0); MCV 99.3 fL (80.0-100.0); MEAN PLATELET VOLUME 10.6 fL (7.4-10.4); MONOCYTES 14.1 % (2-11); NEUTROPHILS 75.5 % (40-80); PLATELET COUNT 208 10x3/uL (130-400); RBC 3.02 10x6/uL (4.20-6.10); RDW 13.2 % (11.5-14.5); WBC 11.1 10x3/uL (4.8-10.8)
[2020-07-29 04:42] LABS: BILIRUBIN - TOTAL 3.35 mg/dL (0.2-1.3); CALCIUM 8.4 mg/dL (8.5-10.1); CARBON DIOXIDE 24.2 mmol/L (21.0-32.0); CREATININE - SERUM 1.1 mg/dL (0.6-1.3); POTASSIUM - SERUM 4.2 mmol/L (3.5-5.1); PROTEIN - SERUM 6.2 g/dL (6.4-8.2)
--- NOTE | 2020-07-29 06:44 | NUR ---
PATIENT RESTED WELL THROUGHOUT NIGHT. PATIENT CLEANSED WITH CHG AND PARTIAL LINEN CHANGE COMPLETED. PATIENT SITTING UP IN BED WITHOUT S/S OF DISTRESS. Fernie BAPTISTE RN
--- NOTE | 2020-07-29 08:20 | NUR ---
BOWEL SOUNDS POSITIVE. VSS. PAIN WELL CONTROLLED.DR RUSH HERE THIS AM.
--- NOTE | 2020-07-29 12:13 | NUR ---
Nutrition Follow-up: POD 6 aorto bifemoral bypass. NGT d/c'd 07/27. Continues to be NPO (x 6 days). Nursing reports positive BS this AM. Ileus resolved per KUB. Wt: 229.2# (07/29); 222.6# (07/23) Labs noted: Glu 139, Ca 8.4, Alb 2.0 Meds noted: Florajen, Protonix, D5 1/2NS KCl @ 75 -If unable to advance diet today, rec initiate nutrition support (Procal) if medically feasible. -RD follow-up: 07/31
--- NOTE | 2020-07-29 14:41 | NUR ---
OUT OF CHAIR WITH PT. PT MARCHED IN FRONT OF CHAIR BUT WAS UNABLE TO AMB.
[2020-07-30] VITALS (23 sets, daily range): BP systolic 106–153; BP diastolic 37–78
[2020-07-30 03:44] LABS: BASOPHILS 0.1 % (0-2); EOSINOPHILS 1.6 % (0-7); HEMATOCRIT 27.5 % (42.0-54.0); HEMOGLOBIN 8.9 g/dL (13.5-17.5); IMMATURE GRANULOCYTES 0.9 % (0-5); LYMPHOCYTE ABS# 1.32 10x3/uL (1.32-3.57); MCHC 32.4 g/dL (31.0-37.0); MCV 98.9 fL (80.0-100.0); MEAN PLATELET VOLUME 10.2 fL (7.4-10.4); MONOCYTES 6.3 % (2-11); NEUTROPHIL ABS# 7.92 10x3/uL (1.78-5.38); NEUTROPHILS 78.1 % (40-80); PLATELET COUNT 206 10x3/uL (130-400); RBC 2.78 10x6/uL (4.20-6.10); RDW 13.2 % (11.5-14.5); WBC 10.1 10x3/uL (4.8-10.8)
[2020-07-30 04:21] LABS: ANION GAP 13.2 mmol/L (8-16); BILIRUBIN - TOTAL 2.95 mg/dL (0.2-1.3); CALCIUM 8.4 mg/dL (8.5-10.1); CARBON DIOXIDE 22.5 mmol/L (21.0-32.0); POTASSIUM - SERUM 4.7 mmol/L (3.5-5.1); PROTEIN - SERUM 5.7 g/dL (6.4-8.2)
[2020-07-30 04:22] LABS: CREATININE - SERUM 1.7 mg/dL (0.6-1.3)
--- NOTE | 2020-07-30 19:20 | NUR ---
REPORT REC'D AND CARE ASSUMED, REC'D PT AWAKE, ALERT, AND ORIENTED, DAUGHTER AT BS, O2 @ 5LITERS VIA NC, RIJ CVL WITH D51/2NS @ 75CC/HR, MIDLINE ABD INCISION CDI, RIGHT AND LEFT GROIN DRSGS CDI, ENRIQUEZ PATENT DRAINING CLOUDY YELLOW URINE, LEFT LOWER LEG SCALY AND RED, RIGHT LEG RED, ABLE TO DOPPLER DORSALIS PEDIS AND POSTERIOR TIBIAL BILATERALLY, FEET COOL TO TOUCH, HEELS BRIDGED, PT REQUESTING ICE FOR BOTTLED WATER THAT DAUGHTER BROUGHT, PT DENIES PAIN OR OTHER NEEDS, BED IN LOW POSITION, CALL LIGHT IN REACH.
[2020-07-31] VITALS (24 sets, daily range): BP systolic 104–144; BP diastolic 35–61
[2020-07-31 06:14] LABS: BASOPHILS 0.1 % (0-2); EOSINOPHILS 3.9 % (0-7); HEMATOCRIT 26.3 % (42.0-54.0); HEMOGLOBIN 8.4 g/dL (13.5-17.5); IMMATURE GRANULOCYTES 1.7 % (0-5); LYMPHOCYTE ABS# 0.62 10x3/uL (1.32-3.57); LYMPHOCYTES 8.6 % (15-50); MCH 31.9 pg (26.0-34.0); MCHC 31.9 g/dL (31.0-37.0); MEAN PLATELET VOLUME 10.5 fL (7.4-10.4); MONOCYTES 14.7 % (2-11); NEUTROPHIL ABS# 5.11 10x3/uL (1.78-5.38); PLATELET COUNT 199 10x3/uL (130-400); RBC 2.63 10x6/uL (4.20-6.10); RDW 13.4 % (11.5-14.5); WBC 7.2 10x3/uL (4.8-10.8)
[2020-07-31 06:28] LABS: ALBUMIN 1.8 g/dL (3.4-5.0); BILIRUBIN - TOTAL 2.17 mg/dL (0.2-1.3); PROTEIN - SERUM 5.5 g/dL (6.4-8.2); VANCOMYCIN - RANDOM 22.8 ug/mL (10.0-20.0)
--- NOTE | 2020-07-31 07:29 | NUR ---
SHIFT REPORT RECEIVED. PT IN BED ON BIPAP. ATTEMPTED TO GET PT OUT OF BED AT THIS TIME. HE REFUSED. WAS VERY AGITATED WITH STAFF FOR TRYING TO GET HIM UP. CURRENTLY ON 5L O2 VIA NC. WILL CONTINUE TO MONITOR.
--- NOTE | 2020-07-31 08:05 | NUR ---
ASSISTED UP TO CHAIR. TOLERATED WELL. MEAL TRAY DELIVERED AND SET UP. CALL LIGHT IN REACH. WILL CONTINUE TO MONITOR.
--- NOTE | 2020-07-31 09:46 | NUR ---
AMBULATED WITH PHYSICAL THERAPY IN [address]. SOB NOTED. LEGS ELEVATED IN CHAIR. DR. LEVY IN UNIT. CONTINUE WITH IV FLUIDS AT THIS TIME. ENCOURAGE ORAL FLUIDS. WILL CONTINUE TO MONITOR.
--- NOTE | 2020-07-31 10:58 | NUR ---
Nutrition Reassessment/Follow-up: POD 8 aorto bifemoral bypass. Diet advanced to clear liquids yesterday after being NPO for several days. Tolerating clears. Active BS. -BM; +flatus. Diet: Clear Liquid Wt: 225# (07/30) Labs noted: BUN 43, Cre 2.0, GFR 35, Glu 137, Ca 8.0, Alb 1.8 Meds noted: Reglan, Protonix, D5 1/2NS @ 75 -Nutrition needs unchanged from initial assessment. -Rec advance diet as tolerated as medically feasible. Pt is at risk for refeeding syndrome 2/2 prolonged NPO status; will need to monitor electrolytes and cardiac function. Need PO4 and Mg levels. -RD follow-up: 08/02
--- NOTE | 2020-07-31 12:00 | NUR ---
SITTING UP IN CHAIR. MEAL TRAY DELIVERED AND SET UP. CUP OF ICE PROVIDED. WILL CONTINUE TO MONITOR.
--- NOTE | 2020-07-31 14:03 | NUR ---
AMBULATED ABOUT 75FT WITH PHYSICAL THERAPY. PHYSICAL THERAPY PUT PT BACK IN BED. PT STATES DISCOMFORT ON LOWER EXTREMITIES 09/05 DUE TO SWELLING. NO PAIN MEDICINE ORDERED. NOHEMI LEE WITH DR. RUSH NOTIFIED.
--- NOTE | 2020-07-31 17:00 | NUR ---
RIGHT IJ CVL DRESSING CHANGED. CVL NOT SUTURED IN. SECURED WITH DRESSING. NO SIGNS OF INFECTION NOTED.
--- NOTE | 2020-07-31 17:46 | NUR ---
SITTING UP IN BED EATING DINNER.
--- NOTE | 2020-07-31 19:20 | NUR ---
BEDSIDE SHIFT REPORT COMPLETED, PT AAOX4, DAUGHTER AT BEDSIDE, DISCUSSED PLAN OF CARE, PAIN CONTROL AND PLAN TO GET OOB IN MORNING BEFORE SHIFT CHANGE. PT REPOSTIONED FOR COMFORT. RIGHT IJ CVL WITH D51/2NS @75ML/HR. O2 VIA NC @3L. ENRIQUEZ DRAINING CLEAR YELLOW URINE. MOORE, WEAKNESS NOTED TO BLE. BLE WITH 2+ TO 3+ PITTING EDEMA, DORSAL AND PEDAL PULSES MARKED AND PALPABLE. DRESSING TO MIDLINE ABDOMEN, C/D/I, BILAT GROIN DRESSING INTACT WITH SEROUS DRAINAGE NOTED. PRN PERCOCET GIVEN PER PT REQUEST. CALL LIGHT WITHIN REACH. NO COMPLAINTS OR UNMET NEEDS VOICED.
--- NOTE | 2020-07-31 21:14 | NUR ---
PT REPORTED HE HAD ICE CREAM TODAY AND TOLERATED WITHOUT NAUSEA OR OTHER COMPLICATIONS, POSTIVE BOWEL SOUNDS AND FLATUS NOTED, ORDER FOR CLEAR LIQUIDS ADVANCED TO FULL LIQUIDS PER MD ORDER TO ADVANCE TOLERATED.
[2020-08-01] VITALS (24 sets, daily range): BP systolic 101–173; BP diastolic 44–131; Ht 177.8 cm; Wt 98.9 kg
--- NOTE | 2020-08-01 02:44 | NUR ---
PT APPEARS TO BE SLEEPING WELL DURING NIGHT, WILL ALLOW MUCH REST POSSIBLE AND WAKE IN A.M. FOR PO PAIN MED THEN OOB AFTER PER PLAN MADE WITH PT EARLY IN SHIFT OF CARE. CALL LIGHT WITHIN REACH, NO DISTRESS NOTED. PEDAL PULSES PALPABLE. WILL CONT TO MONITOR.
[2020-08-01 05:09] LABS: BASOPHILS 0.1 % (0-2); EOSINOPHILS 2.8 % (0-7); HEMATOCRIT 26.3 % (42.0-54.0); HEMOGLOBIN 8.4 g/dL (13.5-17.5); LYMPHOCYTE ABS# 0.83 10x3/uL (1.32-3.57); LYMPHOCYTES 11.2 % (15-50); MCH 31.7 pg (26.0-34.0); MCHC 31.9 g/dL (31.0-37.0); MCV 99.2 fL (80.0-100.0); MONOCYTES 14.1 % (2-11); NEUTROPHIL ABS# 5.04 10x3/uL (1.78-5.38); NEUTROPHILS 67.8 % (40-80); PLATELET COUNT 216 10x3/uL (130-400); RBC 2.65 10x6/uL (4.20-6.10); RDW 13.2 % (11.5-14.5); WBC 7.4 10x3/uL (4.8-10.8)
[2020-08-01 05:23] LABS: ALBUMIN 1.8 g/dL (3.4-5.0); ANION GAP 11.8 mmol/L (8-16); BILIRUBIN - TOTAL 1.58 mg/dL (0.2-1.3); CALCIUM 7.7 mg/dL (8.5-10.1); CARBON DIOXIDE 22.1 mmol/L (21.0-32.0); CREATININE - SERUM 2.3 mg/dL (0.6-1.3); POTASSIUM - SERUM 3.9 mmol/L (3.5-5.1); PROTEIN - SERUM 5.4 g/dL (6.4-8.2)
--- NOTE | 2020-08-01 06:51 | NUR ---
ASSISTED PT OOB TO RECLINER, PT TOLERATED ACTIVITY. LINENS CHANGED, BATHING SUPPLIES AT BEDSIDE FOR BATH, PT REQUEST TO WAIT UNTIL AFTER BREAKFAST. CALL LIGHT WITHIN REACH.
[2020-08-01 13:37] LABS: BILIRUBIN NEGATIVE (NEGATIVE); KETONE NEGATIVE (NEGATIVE); NITRITE NEGATIVE (NEGATIVE); UROBILINOGEN NORMAL mg/dL (< 2)
[2020-08-01 13:43] LABS: SQUAMOUS EPITHELIAL NONE SEEN HPF (0-4); WHITE CELLS - URINE 0-5 HPF (0-1)
[2020-08-01 13:44] LABS: AMORPHOUS SEDIMENT MODERATE LPF (NONE SEEN); BACTERIA FEW HPF (NONE SEEN); GRANULAR CAST 0-5 LPF (NONE SEEN)
--- NOTE | 2020-08-01 19:10 | NUR ---
bedside shift change completed. pt with 02 via NC @3L, will place on bipap tonight. right IJ CVL saline locked. alvarez draining concentrated, yellow urine. call light within reach, will cont to monitor.
--- NOTE | 2020-08-01 21:23 | NUR ---
Pt resting in bed, daughter left for night. Pt AAOX4. dressing to midline abdomen C/D/I, dressings to bilat groin with serous drainage noted and no adheared to skin, removed dressings and cleaned with CHG, incisions with ke intact, well approximated and no redness or drainage noted. pt had linens changed today but no bath, pt assisted in bed bath with soap and water with CHG, partial linen change at this time. call light within reach, denies complaints or unmet needs at this time.
--- NOTE | 2020-08-01 23:30 | NUR ---
PT PLACED ON HOME CPAP MACHINE PER RT, 02 @3L, NO DISTRESS NOTED. PT DENIES COMPLIANTS OR UNMET NEEDS.
[2020-08-02] VITALS (22 sets, daily range): BP systolic 98–138; BP diastolic 31–72
--- NOTE | 2020-08-02 05:27 | NUR ---
PT DECLINED PO PAIN MED PRIOR TO GETTING OOB BEFORE CHANGE OF SHIFT, PT DECLINED PAIN PILL AND GETTING OOB BEFORE 0700, PT AGREED TO GET OOB BEFORE BREAKFAST. CALL LIGHT WITHIN REACH, NO COMPLAINTS OR UNMET NEEDS VOICED.
[2020-08-02 06:23] LABS: ALBUMIN 1.7 g/dL (3.4-5.0); ANION GAP 11.8 mmol/L (8-16); BILIRUBIN - TOTAL 1.25 mg/dL (0.2-1.3); CALCIUM 7.9 mg/dL (8.5-10.1); CARBON DIOXIDE 22.7 mmol/L (21.0-32.0); CREATININE - SERUM 2.5 mg/dL (0.6-1.3); POTASSIUM - SERUM 3.5 mmol/L (3.5-5.1); PROTEIN - SERUM 5.2 g/dL (6.4-8.2)
[2020-08-02 07:16] LABS: BASOPHILS 0.1 % (0-2); EOSINOPHILS 2.6 % (0-7); HEMATOCRIT 25.7 % (42.0-54.0); HEMOGLOBIN 8.3 g/dL (13.5-17.5); IMMATURE GRANULOCYTES 5.6 % (0-5); LYMPHOCYTE ABS# 0.95 10x3/uL (1.32-3.57); LYMPHOCYTES 11.2 % (15-50); MCH 31.4 pg (26.0-34.0); MCHC 32.3 g/dL (31.0-37.0); MCV 97.3 fL (80.0-100.0); MEAN PLATELET VOLUME 10.7 fL (7.4-10.4); MONOCYTES 10.5 % (2-11); NEUTROPHIL ABS# 5.96 10x3/uL (1.78-5.38); PLATELET COUNT 220 10x3/uL (130-400); RBC 2.64 10x6/uL (4.20-6.10); RDW 13.3 % (11.5-14.5); WBC 8.5 10x3/uL (4.8-10.8)
--- NOTE | 2020-08-02 12:45 | NUR ---
Nutrition Follow-up: POD 10 aorto bifemoral bypass. Diet was advanced to regular. Pt is eating somewhat but c/o difficulty swallowing/sore throat and altered taste. Nursing reports hypoactive BS this AM. KUB shows stable to slightly worsened dilation of the large bowel, probably relating to a large bowel ileus. Noted Dulcolax & Colace have been added. Diet: Regular PO intake: 50% x 3 meals yesterday No new wt; last wt: 225# (07/30) Last BM: smear documented on land survey technician 08/01 Labs noted: Na 136, K+ 3.5, BUN 38, Cre 2.5, GFR 27, Glu 120, Ca 7.9, Alb 1.7 Meds noted: Lasix, Reglan, Florajen, Protonix, Colace, Dulcolax -Monitor bowel function. Encourage PO intake as medically feasible. -Ensure sent with lunch today for pt trial. -Need new wt. - follow-up: 08/05
[2020-08-03] VITALS (23 sets, daily range): BP systolic 113–137; BP diastolic 41–60
[2020-08-03 06:39] LABS: BASOPHILS 0.2 % (0-2); EOSINOPHILS 2.1 % (0-7); HEMATOCRIT 25.6 % (42.0-54.0); HEMOGLOBIN 8.5 g/dL (13.5-17.5); IMMATURE GRANULOCYTES 4.2 % (0-5); LYMPHOCYTE ABS# 1.02 10x3/uL (1.32-3.57); LYMPHOCYTES 10.9 % (15-50); MCH 32.1 pg (26.0-34.0); MCHC 33.2 g/dL (31.0-37.0); MCV 96.6 fL (80.0-100.0); MONOCYTES 9.3 % (2-11); NEUTROPHIL ABS# 6.86 10x3/uL (1.78-5.38); NEUTROPHILS 73.3 % (40-80); PLATELET COUNT 209 10x3/uL (130-400); RBC 2.65 10x6/uL (4.20-6.10); RDW 13.1 % (11.5-14.5); WBC 9.4 10x3/uL (4.8-10.8)
--- NOTE | 2020-08-03 07:11 | NUR ---
DR LOYA CALLED, UPDATED REGARDING PT STATUS, ORDERS RECEIVED.
[2020-08-03 07:31] LABS: ALBUMIN 1.9 g/dL (3.4-5.0); ANION GAP 13.7 mmol/L (8-16); BILIRUBIN - TOTAL 1.16 mg/dL (0.2-1.3); CARBON DIOXIDE 21.2 mmol/L (21.0-32.0); CREATININE - SERUM 2.7 mg/dL (0.6-1.3); POTASSIUM - SERUM 3.9 mmol/L (3.5-5.1); PROTEIN - SERUM 5.3 g/dL (6.4-8.2)
[2020-08-03 08:33] LABS: COMPLEMENT C4 0.1 mg/dL (17.4-52.2)
--- NOTE | 2020-08-03 13:53 | NUR ---
1340: DISCHARGED HOME WITH . ESCORTED TO EXIT VIA WHEELCHAIR.
[2020-08-03 14:39] LABS: CREATININE - URINE 121.5 mg/dL (30-125); PRO/CRE RATIO URINE 1.3 mg/g; PROTEIN - URINE 163.5 mg/dL (0.0-11.9)
[2020-08-03 14:47] LABS: BILIRUBIN NEGATIVE (NEGATIVE); KETONE NEGATIVE (NEGATIVE); NITRITE NEGATIVE (NEGATIVE); UROBILINOGEN NORMAL mg/dL (< 2)
[2020-08-03 14:48] LABS: SQUAMOUS EPITHELIAL NONE SEEN HPF (0-4); WHITE CELLS - URINE 0-5 HPF (0-1)
[2020-08-03 14:49] LABS: BACTERIA FEW HPF (NONE SEEN); GRANULAR CAST 0-5 LPF (NONE SEEN)
[2020-08-04] VITALS (24 sets, daily range): BP systolic 105–141; BP diastolic 37–55
[2020-08-04 08:25] LABS: ANION GAP 11.1 mmol/L (8-16); CARBON DIOXIDE 23.9 mmol/L (21.0-32.0); CREATININE - SERUM 2.7 mg/dL (0.6-1.3)
[2020-08-05] VITALS (24 sets, daily range): BP systolic 106–136; BP diastolic 42–59
[2020-08-05 06:05] LABS: BASOPHILS 0.2 % (0-2); EOSINOPHILS 2.2 % (0-7); HEMATOCRIT 24.2 % (42.0-54.0); HEMOGLOBIN 7.9 g/dL (13.5-17.5); IMMATURE GRANULOCYTES 1.3 % (0-5); LYMPHOCYTE ABS# 1.15 10x3/uL (1.32-3.57); LYMPHOCYTES 13.1 % (15-50); MCH 31.5 pg (26.0-34.0); MCHC 32.6 g/dL (31.0-37.0); MCV 96.4 fL (80.0-100.0); MEAN PLATELET VOLUME 9.7 fL (7.4-10.4); MONOCYTES 9.7 % (2-11); NEUTROPHIL ABS# 6.45 10x3/uL (1.78-5.38); NEUTROPHILS 73.5 % (40-80); PLATELET COUNT 218 10x3/uL (130-400); RBC 2.51 10x6/uL (4.20-6.10); RDW 13.3 % (11.5-14.5); WBC 8.8 10x3/uL (4.8-10.8)
[2020-08-05 06:17] LABS: ANION GAP 12.2 mmol/L (8-16); CALCIUM 8.1 mg/dL (8.5-10.1); CARBON DIOXIDE 24.7 mmol/L (21.0-32.0); CREATININE - SERUM 2.5 mg/dL (0.6-1.3); POTASSIUM - SERUM 3.9 mmol/L (3.5-5.1)
--- NOTE | 2020-08-05 11:06 | NUR ---
Nutrition Follow-up: POD 13 aorto bifemoral bypass. Tolerating diet; fair PO intake. +BM over the weekend. Diet: Regular PO intake: 60% avg x 3 meals (08/04) Wt: 219# (08/03) Labs noted: BUN 36, Cre 2.5, GFR 27, Glu 123, Ca 8.1 Meds noted: Lasix, Pepcid, Colace -Encourage PO intake and honor food preferences. -Offer nutrition supplements. -Monitor wt. -RD follow-up: 08/07
--- NOTE | 2020-08-05 12:34 | NUR ---
THANK YOU FOR THIS REFERRAL. WILL CONTINUE TO FOLLOW. DIASTOLIC B/P AND H/H ARE LOW TODAY. WILL REVIEW AGAIN TOMORROW. NOTIFIED RHIANNON BENNETT RN [facility] AND ROSA CORBIN, CV NURSE NOTIFIED. SHARA LANGLEY LPN, CLINICAL LIAISON
[2020-08-06] VITALS (15 sets, daily range): BP systolic 115–139; BP diastolic 44–67
[2020-08-06 04:08] LABS: BASOPHILS 0.2 % (0-2); HEMATOCRIT 27.8 % (42.0-54.0); HEMOGLOBIN 9.2 g/dL (13.5-17.5); IMMATURE GRANULOCYTES 1.3 % (0-5); LYMPHOCYTE ABS# 1.32 10x3/uL (1.32-3.57); LYMPHOCYTES 14.7 % (15-50); MCHC 33.1 g/dL (31.0-37.0); MEAN PLATELET VOLUME 9.9 fL (7.4-10.4); MONOCYTES 9.5 % (2-11); NEUTROPHIL ABS# 6.47 10x3/uL (1.78-5.38); NEUTROPHILS 72.3 % (40-80); PLATELET COUNT 198 10x3/uL (130-400); RBC 2.97 10x6/uL (4.20-6.10); RDW 15.2 % (11.5-14.5)
[2020-08-06 04:09] LABS: ANION GAP 11.7 mmol/L (8-16); CARBON DIOXIDE 25.3 mmol/L (21.0-32.0); CREATININE - SERUM 2.4 mg/dL (0.6-1.3)
[2020-08-06 04:10] LABS: MCV 93.6 fL (80.0-100.0)
[2020-08-06 11:11] LABS: ACLA - IGG AB <9 GPL U/mL (0-14); ACLA - IGM AB 27 MPL U/mL (0-12)
[2020-08-06 11:11] LABS: ANA REFLEX - DIRECT Negative (Negative); HEPATITIS C ANTIBODY 0.1 S/CO RAT (0.0-0.9)
--- NOTE | 2020-08-06 11:51 | MORECARE ---
CASE MANAGEMENT DISCHARGE SUMMARY PATIENT: LEONIDES LASSITER UNIT: [id number] ADM DATE: 07/23/20 AGE: 74 : 47 SEX: M ROOM/BED: [facility] AUTHOR: KAVITHA,DOC PHYSICIAN: REFERRING PHYSICIAN: TALIA RUSH MD DATE OF SERVICE: 08/06/20 Case Management Discharge Planning Summary DCP REVIEW SUMMARY ANTICIPATED D/C DATE: 08/06/2020 EXPECTED LOS : 14 CASE STATUS: DCP Initiated INITIAL REVIEW: 07/23/2020 INITIAL REVIEWER: Gabriela Ahmadi FINAL DISCHARGE DISPOSITION: : FINAL REVIEWER: FINAL REVIEW DATE: DCP Focus Questions & Answers DCP Screen QUESTION: ANSWER High Risk Factors: : None Walking limitation: Patient stated self rated walking limitation present? : No Age: : 65 - 79 Prior living environment: : Lives with others Disability ranking: : Grade 1: No significant disability DCP Evaluation QUESTION: ANSWER Patient's ability to cope with chronic illness : d. No chronic illness Would patient like to participate in any Care Coordination programs (if applicable): : Not applicable Mental health screen: : No mental health history DCP Re-evaluation QUESTION: ANSWER Would patient like to participate in any Care Coordination programs (if applicable): : Not applicable PATIENT: LEONIDES LASSITER ENCOUNTER: [id number] MEDICAL RECORD#: [id number] ADMISSION DATE: 07/23/2020 DISCHARGE DATE: ATTENDING MD: TALIA ORELLANA : AGE: 74 MARITAL STATUS: M DC PLAN ID: [id number] FACILITY: [facility] PRINTED ON: 08/06/20 11:51 CT All edits/amendments must be made on the electronic document DICTATION DATE: 08/06/20 115 WATER TREATMENT PLANT SUPERVISOR: DM 08/06/20 1151 RPT#: [id number] DC DATE: STATUS: ADM IN [facility] [address] [place] [address] END OF REPORT
--- NOTE | 2020-08-06 12:02 | MORECARE ---
CASE MANAGEMENT DISCHARGE SUMMARY PATIENT: LEONIDES LASSITER UNIT: [id number] ADM DATE: 07/23/20 AGE: 74 : 47 SEX: M ROOM/BED: [facility] AUTHOR: KAVITHADOC PHYSICIAN: REFERRING PHYSICIAN: TALIA RUSH MD DATE OF SERVICE: 08/06/20 Case Management Discharge Planning Summary DCP REVIEW SUMMARY ANTICIPATED D/C DATE: 08/06/2020 EXPECTED LOS : 14 CASE STATUS: DCP Initiated INITIAL REVIEW: 07/23/2020 INITIAL REVIEWER: Gabriela Ahmadi FINAL DISCHARGE DISPOSITION: : FINAL REVIEWER: FINAL REVIEW DATE: DCP Focus Questions & Answers DCP Screen QUESTION: ANSWER High Risk Factors: : None Walking limitation: Patient stated self rated walking limitation present? : No Age: : 65 - 79 Prior living environment: : Lives with others Disability ranking: : Grade 1: No significant disability DCP Evaluation QUESTION: ANSWER Patient's ability to cope with chronic illness : d. No chronic illness Family / Caregiver's ability to cope with chronic illness: : a. Adequate (ability to meet patient's medical needs, ensures patient attends medical appts.) Patient's current cognitive status: : *Oriented to person, place, situation, time and present Physical Status: : Independent with ADL's Does the patient have the ability to pay for or attain post discharge needs / services? : Yes Functional screen assessment: : Basic needs can adequately be met by self Living Arrangements: : Home with others Is there a likelihood that the patient will require additional services to return to the preadmission environment? : Yes Baseline cognitive status: : *Oriented to person, place, situation, time and present Results of this evaluation have been discussed with: : Patient Patient with capacity for self-care or can be cared for in same environment as prior to hospitalization? : Yes Comments: : PT STATES HIS SON DALIA LIVES WITH HIM. Medication Management: : Patient states can afford medications Pharmacy name(s): : [facility] IN [place] Does Patient have transportation to get home and to follow-up medical appointments when discharged from the hospital? : Yes Would patient like to participate in any Care Coordination programs (if applicable): : Not applicable Does the patient have electricity at home? : Yes Does the patient have running water in their house? : Yes Equipment in use: : CPAP Equipment agency name and contact information: : [facility] PATIENT Mental health screen: : No mental health history Psychosocial status: : Independent adult (65+) Abuse/Neglect: : None Resources / Services in place: : None Problems identified by the patient regarding discharge: : NONE DCP Re-evaluation QUESTION: ANSWER Would patient like to participate in any Care Coordination programs (if applicable): : Not applicable PATIENT: LEONIDES LASSITER ENCOUNTER: [id number] MEDICAL RECORD#: [id number] ADMISSION DATE: 07/23/2020 DISCHARGE DATE: ATTENDING MD: TALIA ORELLANA : AGE: 74 MARITAL STATUS: M DC PLAN ID: [id number] FACILITY: [facility] PRINTED ON: 08/06/20 12:02 CT All edits/amendments must be made on the electronic document DICTATION DATE: 08/06/201201 SOCIAL SERVICES COORDINATOR: IMANI 08/06/201201 RPT#: [id number] DC DATE: STATUS: ADM IN [facility] [address] [place] [address] END OF REPORT
--- NOTE | 2020-08-06 12:12 | MORECARE ---
CASE MANAGEMENT DISCHARGE SUMMARY PATIENT: LEONIDES LASSITER UNIT: [id number] ADM DATE: 07/23/20 AGE: 74 : 47 SEX: M [facility] AUTHOR: KAVITHADOC PHYSICIAN: REFERRING PHYSICIAN: TALIA RUSH MD DATE OF SERVICE: 08/06/20 Case Management Discharge Planning Summary DCP REVIEW SUMMARY ANTICIPATED D/C DATE: 08/06/2020 EXPECTED LOS : 14 CASE STATUS: DCP Initiated INITIAL REVIEW: 07/23/2020 INITIAL REVIEWER: Gabriela Ahmadi FINAL DISCHARGE DISPOSITION: : FINAL REVIEWER: FINAL REVIEW DATE: DCP Focus Questions & Answers DCP Screen QUESTION: ANSWER High Risk Factors: : None Walking limitation: Patient stated self rated walking limitation present? : No Age: : 65 - 79 Prior living environment: : Lives with others Disability ranking: : Grade 1: No significant disability DCP Evaluation QUESTION: ANSWER Patient and/or caregiver agree upon recommended discharge plan? : Yes Patient's ability to cope with chronic illness : d. No chronic illness Family / Caregiver's ability to cope with chronic illness: : a. Adequate (ability to meet patient's medical needs, ensures patient attends medical appts.) Patient's current cognitive status: : *Oriented to person, place, situation, time and present Functional screen assessment: : Unable to manage ADLs without immediate ongoing assistance Physical Status: : Independent with ADL's Does the patient have the ability to pay for or attain post discharge needs / services? : Yes Equipment needed for post hospitalization: : None Functional screen comments: : NEEDS PT Living Arrangements: : Home with others Is there a likelihood that the patient will require additional services to return to the preadmission environment? : Yes Baseline cognitive status: : *Oriented to person, place, situation, time and present Results of this evaluation have been discussed with: : Patient Patient with capacity for self-care or can be cared for in same environment as prior to hospitalization? : No Physical environment modification needed / anticipated for discharge: : No Preadmission facility can/cannot provide post hospital level of care needs: : Cannot - at higher level of care than preadmission Comments: : PT STATES HIS SON DALIA LIVES WITH HIM. Medication Management: : Patient states can afford medications Planned post hospital services available for patient? : Yes Pharmacy name(s): : [facility] IN [place] Planned post hospital services covered by insurance plan? : Yes Does Patient have transportation to get home and to follow-up medical appointments when discharged from the hospital? : Yes Would patient like to participate in any Care Coordination programs (if applicable): : Not applicable Does the patient have electricity at home? : Yes Does the patient have running water in their house? : Yes Equipment in use: : CPAP Equipment agency name and contact information: : [facility] PATIENT Mental health screen: : No mental health history Psychosocial status: : Independent adult (65+) Abuse/Neglect: : None Resources / Services in place: : None Problems identified by the patient regarding discharge: : NONE DCP Re-evaluation QUESTION: ANSWER Would patient like to participate in any Care Coordination programs (if applicable): : Not applicable PATIENT: LEONIDES LASSITER ENCOUNTER: [id number] MEDICAL RECORD#: [id number] ADMISSION DATE: 07/23/2020 DISCHARGE DATE: ATTENDING MD: TALIA ORELLANA : AGE: 74 MARITAL STATUS: M DC PLAN ID: [id number] FACILITY: [facility] PRINTED ON: 08/06/20 12:12 CT All edits/amendments must be made on the electronic document DICTATION DATE: 08/06/20 121 BURGLAR ALARM INSPECTOR: IMANI 08/06/20 121 RPT#: [id number] DC DATE: STATUS: ADM IN [facility] [address] [place] [address] END OF REPORT
--- NOTE | 2020-08-06 12:34 | MORECARE ---
CASE MANAGEMENT DISCHARGE SUMMARY PATIENT: LEONIDES LASSITER UNIT: [id number] ADM DATE: 07/23/20 AGE: 74 : 47 SEX: M ROOM/BED: D[facility] AUTHOR: KAVITHA,DOC PHYSICIAN: REFERRING PHYSICIAN: TALIA RUSH MD DATE OF SERVICE: 08/06/20 Case Management Discharge Planning Summary COMMENTS ENTERED DATE: 08/06/20 12:11 CT COMMENT TYPE: Discharge Planning REVIEWER: Gabriela Ahmadi CM MET WITH PATIENT TO DISCUSS DISCHARGE PLANNING AND ASSESS PATIENT NEEDS. PATIENT STATES DESIRE FOR INPATIENT REHAB. [facility] HAS ACCEPTED PATIENT. RIGHT OF CHOICE FOR SIGNED AND PLACED ON CHART. PATIENT STATES THAT HE MAY NEED SHOWER CHAIR AND POSSIBNLY GRAB BARS PLACED IN HIS BATHROOM UPON HIS DISCHARGE TO HOME. PATIENT DOES USE DME ([facility]) FOR CPAP MANCHINE. PATIENT STATES HIS SON DALIA LASSITER LIVES WITH HIM AND HELPS WITH HOUSEWORK AND COOKING. PATIENT ALSO STATES THAT HIS DAUGHTER KENIA MALAGON ([phone]) LIVES CLOSE AND IS AVAILABLE IF NEEDED FOR ASSISTANCE. PATIENT STATES THAT HIS LIVING ENVIROMENT IS SAFE AND HAS TRANSPORTATION HOME WHEN DISCHARGED, TO DOCTOR APPOINTMENTS AND CAN OBTAIN HIS MEDIATIONS IF NEEDED. DISCHARGE PLAN INCLUDES TRANSFER TO INPATIENT REHAB TODAY. Appended by Gabriela Ahmadi on 08/06/2020 12:25 CDT: IMM FORM DISCUSSED AND SIGNTURE OBTAINED. PATIENT VERBALIZED UNDERSTANDING, COPY PLACED ON PATIENT CHART. DCP REVIEW SUMMARY ANTICIPATED D/C DATE: 08/06/2020 EXPECTED LOS : 14 CASE STATUS: DCP Initiated INITIAL REVIEW: 07/23/2020 INITIAL REVIEWER: Gabriela Ahmadi FINAL DISCHARGE DISPOSITION: : FINAL REVIEWER: FINAL REVIEW DATE: DCP Focus Questions & Answers DCP Screen QUESTION: ANSWER High Risk Factors: : None Walking limitation: Patient stated self rated walking limitation present? : No Age: : 65 - 81 Prior living environment: : Lives with others Disability ranking: : Grade 1: No significant disability DCP Evaluation QUESTION: ANSWER Patient and/or caregiver agree upon recommended discharge plan? : Yes Patient's ability to cope with chronic illness : d. No chronic illness Family / Caregiver's ability to cope with chronic illness: : a. Adequate (ability to meet patient's medical needs, ensures patient attends medical appts.) Patient's current cognitive status: : *Oriented to person, place, situation, time and present Functional screen assessment: : Unable to manage ADLs without immediate ongoing assistance Physical Status: : Independent with ADL's Does the patient have the ability to pay for or attain post discharge needs / services? : Yes Equipment needed for post hospitalization: : None Functional screen comments: : NEEDS PT Living Arrangements: : Home with others Is there a likelihood that the patient will require additional services to return to the preadmission environment? : Yes Baseline cognitive status: : *Oriented to person, place, situation, time and present Results of this evaluation have been discussed with: : Patient Patient with capacity for self-care or can be cared for in same environment as prior to hospitalization? : No Physical environment modification needed / anticipated for discharge: : No Preadmission facility can/cannot provide post hospital level of care needs: : Cannot - at higher level of care than preadmission Comments: : PT STATES HIS SON DALIA LIVES WITH HIM. Medication Management: : Patient states can afford medications Planned post hospital services available for patient? : Yes Pharmacy name(s): : [facility] [place] Planned post hospital services covered by insurance plan? : Yes Does Patient have transportation to get home and to follow-up medical appointments when discharged from the hospital? : Yes Would patient like to participate in any Care Coordination programs (if applicable): : Not applicable Does the patient have electricity at home? : Yes Does the patient have running water in their house? : Yes Equipment in use: : CPAP Equipment agency name and contact information: : [facility] PATIENT Mental health screen: : No mental health history Psychosocial status: : Independent adult (65+) Abuse/Neglect: : None Resources / Services in place: : None Problems identified by the patient regarding discharge: : NONE DCP Re-evaluation QUESTION: ANSWER Would patient like to participate in any Care Coordination programs (if applicable): : Not applicable PATIENT: LEONIDES LASSITER ENCOUNTER: [id number] MEDICAL RECORD#: [id number] ADMISSION DATE: 07/23/2020 DISCHARGE DATE: ATTENDING MD: TALIA ORELLANA : AGE: 74 MARITAL STATUS: M DC PLAN ID: [id number] FACILITY: [facility] PRINTED ON: 08/06/20 12:34 CT All edits/amendments must be made on the electronic document DICTATION DATE: 08/06/20 1234 MAIL MANAGER: IMANI 08/06/20 1234 RPT#: [id number] [place] DATE: STATUS: ADM IN [facility] [address] [place] [address] END OF REPORT
[2020-08-06 14:10] LABS: SPE - A/G RATIO 0.9 (0.7-1.7); SPE - ALBUMIN 2.2 g/dL (2.9-4.4); SPE - ALPHA-1 GLOBULIN 0.3 g/dL (0.0-0.4); SPE - ALPHA-2 GLOBULIN 0.7 g/dL (0.4-1.0); SPE - BETA GLOBULIN 0.6 g/dL (0.7-1.3); SPE - GAMMA GLOBULIN 0.8 g/dL (0.4-1.8); SPE - M-SPIKE 0.1 g/dL (Not Observed); SPE - TOTAL PROTEIN 4.7 g/dL (6.0-8.5)
[2020-08-06] MEDS ORDERED: TOPROL XL25 MG PO (15:38)
[2020-08-06] MEDS ORDERED: LASIX40 MG PO (15:41)
[2020-08-06] MEDS ORDERED: COLACE100 MG PO (15:41)
[2020-08-06] MEDS ORDERED: POTASSIUM CHLO10 ME1 PO (15:47)
[2020-08-06] MEDS ORDERED: K-DUR20 MEQ (15:48)
--- NOTE | 2020-08-06 17:01 | MORECARE ---
CASE MANAGEMENT DISCHARGE SUMMARY PATIENT: LEONIDES LASSITER UNIT: [id number] ADM DATE: 07/23/20 AGE: 74 : 47 SEX: M ROOM/BED: D[facility] AUTHOR: KAVITHA,DOC PHYSICIAN: REFERRING PHYSICIAN: TALIA RUSH MD DATE OF SERVICE: 08/06/20 Case Management Discharge Planning Summary COMMENTS ENTERED DATE: 08/06/20 12:11 CT COMMENT TYPE: Discharge Planning REVIEWER: Gabriela Ahmadi CM MET WITH PATIENT TO DISCUSS DISCHARGE PLANNING AND ASSESS PATIENT NEEDS. PATIENT STATES DESIRE FOR INPATIENT REHAB. [facility] HAS ACCEPTED PATIENT. RIGHT OF CHOICE FOR SIGNED AND PLACED ON CHART. PATIENT STATES THAT HE MAY NEED SHOWER CHAIR AND POSSIBNLY GRAB BARS PLACED IN HIS BATHROOM UPON HIS DISCHARGE TO HOME. PATIENT DOES USE DME ([facility]) FOR CPAP MANCHINE. PATIENT STATES HIS SON GURINDER LASSITER LIVES WITH HIM AND HELPS WITH HOUSEWORK AND COOKING. PATIENT ALSO STATES THAT HIS DAUGHTER KENIA MALAGON ([phone]) LIVES CLOSE AND IS AVAILABLE IF NEEDED FOR ASSISTANCE. PATIENT STATES THAT HIS LIVING ENVIROMENT IS SAFE AND HAS TRANSPORTATION HOME WHEN DISCHARGED, TO DOCTOR APPOINTMENTS AND CAN OBTAIN HIS MEDIATIONS IF NEEDED. DISCHARGE PLAN INCLUDES TRANSFER TO INPATIENT REHAB TODAY. Appended by Gabriela Ahmadi on 08/06/2020 12:25 CDT: IMM FORM DISCUSSED AND SIGNTURE OBTAINED. PATIENT VERBALIZED UNDERSTANDING, COPY PLACED ON PATIENT CHART. DCP REVIEW SUMMARY ANTICIPATED D/C DATE: 08/06/2020 EXPECTED LOS : 14 CASE STATUS: DCP Initiated INITIAL REVIEW: 07/23/2020 INITIAL REVIEWER: Gabriela Ahmadi FINAL DISCHARGE DISPOSITION: : FINAL REVIEWER: FINAL REVIEW DATE: DCP Focus Questions & Answers DCP Screen QUESTION: ANSWER High Risk Factors: : None Walking limitation: Patient stated self rated walking limitation present? : No Age: : 65 - 81 Prior living environment: : Lives with others Disability ranking: : Grade 1: No significant disability DCP Evaluation QUESTION: ANSWER Patient and/or caregiver agree upon recommended discharge plan? : Yes Patient's ability to cope with chronic illness : d. No chronic illness Family / Caregiver's ability to cope with chronic illness: : a. Adequate (ability to meet patient's medical needs, ensures patient attends medical appts.) Patient's current cognitive status: : *Oriented to person, place, situation, time and present Functional screen assessment: : Unable to manage ADLs without immediate ongoing assistance Physical Status: : Independent with ADL's Does the patient have the ability to pay for or attain post discharge needs / services? : Yes Equipment needed for post hospitalization: : None Functional screen comments: : NEEDS PT Living Arrangements: : Home with others Is there a likelihood that the patient will require additional services to return to the preadmission environment? : Yes Baseline cognitive status: : *Oriented to person, place, situation, time and present Results of this evaluation have been discussed with: : Patient Patient with capacity for self-care or can be cared for in same environment as prior to hospitalization? : No Living arrangements comments: : Gurinder Lassiter (son) lives with patient. Physical environment modification needed / anticipated for discharge: : No Preadmission facility can/cannot provide post hospital level of care needs: : Cannot - at higher level of care than preadmission Comments: : PT STATES HIS SON GURINDER LIVES WITH HIM. Medication Management: : Patient states can afford medications Planned post hospital services available for patient? : Yes Pharmacy name(s): : [facility] [place] Planned post hospital services covered by insurance plan? : Yes Does Patient have transportation to get home and to follow-up medical appointments when discharged from the hospital? : Yes Would patient like to participate in any Care Coordination programs (if applicable): : Not applicable Does the patient have electricity at home? : Yes Does the patient have running water in their house? : Yes Equipment in use: : CPAP Equipment agency name and contact information: : [facility] PATIENT Mental health screen: : No mental health history Psychosocial status: : Independent adult (65+) Abuse/Neglect: : None Resources / Services in place: : None Problems identified by the patient regarding discharge: : NONE DCP Re-evaluation QUESTION: ANSWER Would patient like to participate in any Care Coordination programs (if applicable): : Not applicable PATIENT: LEONIDES LASSITER ENCOUNTER: [id number] MEDICAL RECORD#: [id number] ADMISSION DATE: 07/23/2020 DISCHARGE DATE: ATTENDING MD: TALIA ORELLANA : AGE: 74 MARITAL STATUS: M DC PLAN ID: [id number] FACILITY: [facility] PRINTED ON: 08/06/20 17:00 CT All edits/amendments must be made on the electronic document DICTATION DATE: 08/06/201699 VENEER TAPER: IMANI 08/06/201699 RPT#: [id number] DC DATE: STATUS: ADM IN [facility] [address] [place] [address] END OF REPORT
--- NOTE | 2020-08-06 18:50 | MORECARE ---
CASE MANAGEMENT DISCHARGE SUMMARY PATIENT: LEONIDES LASSITER UNIT: [id number] ADM DATE: 07/23/20 AGE: 74 : 47 SEX: M ROOM/BED: D[facility] AUTHOR: KAVITHA,DOC PHYSICIAN: REFERRING PHYSICIAN: TALIA RUSH MD DATE OF SERVICE: 08/06/20 Case Management Discharge Planning Summary COMMENTS ENTERED DATE: 08/06/20 12:11 CT COMMENT TYPE: Discharge Planning REVIEWER: Gabriela Ahmadi CM MET WITH PATIENT TO DISCUSS DISCHARGE PLANNING AND ASSESS PATIENT NEEDS. PATIENT STATES DESIRE FOR INPATIENT REHAB. [facility] HAS ACCEPTED PATIENT. RIGHT OF CHOICE FOR SIGNED AND PLACED ON CHART. PATIENT STATES THAT HE MAY NEED SHOWER CHAIR AND POSSIBNLY GRAB BARS PLACED IN HIS BATHROOM UPON HIS DISCHARGE TO HOME. PATIENT DOES USE DME ([facility]) FOR CPAP MANCHINE. PATIENT STATES HIS SON GURINDER LASSITER LIVES WITH HIM AND HELPS WITH HOUSEWORK AND COOKING. PATIENT ALSO STATES THAT HIS DAUGHTER KENIA MALAGON ([phone]) LIVES CLOSE AND IS AVAILABLE IF NEEDED FOR ASSISTANCE. PATIENT STATES THAT HIS LIVING ENVIROMENT IS SAFE AND HAS TRANSPORTATION HOME WHEN DISCHARGED, TO DOCTOR APPOINTMENTS AND CAN OBTAIN HIS MEDIATIONS IF NEEDED. DISCHARGE PLAN INCLUDES TRANSFER TO INPATIENT REHAB TODAY. Appended by Gabriela Ahmadi on 08/06/2020 12:25 CDT: IMM FORM DISCUSSED AND SIGNTURE OBTAINED. PATIENT VERBALIZED UNDERSTANDING, COPY PLACED ON PATIENT CHART. DCP REVIEW SUMMARY ANTICIPATED D/C DATE: 08/06/2020 EXPECTED LOS : 14 CASE STATUS: DCP Initiated INITIAL REVIEW: 07/23/2020 INITIAL REVIEWER: Gabriela Ahmadi FINAL DISCHARGE DISPOSITION: : FINAL REVIEWER: FINAL REVIEW DATE: DCP Focus Questions & Answers DCP Screen QUESTION: ANSWER High Risk Factors: : None Walking limitation: Patient stated self rated walking limitation present? : No Age: : 65 - 81 Prior living environment: : Lives with others Disability ranking: : Grade 1: No significant disability DCP Evaluation QUESTION: ANSWER Patient and/or caregiver agree upon recommended discharge plan? : Yes Patient's ability to cope with chronic illness : d. No chronic illness Family / Caregiver's ability to cope with chronic illness: : a. Adequate (ability to meet patient's medical needs, ensures patient attends medical appts.) Patient's current cognitive status: : *Oriented to person, place, situation, time and present Functional screen assessment: : Unable to manage ADLs without immediate ongoing assistance Physical Status: : Independent with ADL's Does the patient have the ability to pay for or attain post discharge needs / services? : Yes Equipment needed for post hospitalization: : None Functional screen comments: : NEEDS PT Living Arrangements: : Home with others Is there a likelihood that the patient will require additional services to return to the preadmission environment? : Yes Baseline cognitive status: : *Oriented to person, place, situation, time and present Results of this evaluation have been discussed with: : Patient Patient with capacity for self-care or can be cared for in same environment as prior to hospitalization? : No Living arrangements comments: : Gurinder Lassiter (son) lives with patient. Physical environment modification needed / anticipated for discharge: : No Preadmission facility can/cannot provide post hospital level of care needs: : Cannot - at higher level of care than preadmission Comments: : PT STATES HIS SON GURINDER LIVES WITH HIM. Medication Management: : Patient states can afford medications Planned post hospital services available for patient? : Yes Pharmacy name(s): : [facility] [place] Planned post hospital services covered by insurance plan? : Yes Does Patient have transportation to get home and to follow-up medical appointments when discharged from the hospital? : Yes Would patient like to participate in any Care Coordination programs (if applicable): : Not applicable Does the patient have electricity at home? : Yes Does the patient have running water in their house? : Yes Equipment in use: : CPAP Equipment agency name and contact information: : [facility] PATIENT Mental health screen: : No mental health history Psychosocial status: : Independent adult (65+) Abuse/Neglect: : None Resources / Services in place: : None Problems identified by the patient regarding discharge: : NONE DCP Re-evaluation QUESTION: ANSWER Would patient like to participate in any Care Coordination programs (if applicable): : Not applicable PATIENT: LEONIDES LASSITER ENCOUNTER: [id number] MEDICAL RECORD#: [id number] ADMISSION DATE: 07/23/2020 DISCHARGE DATE: 08/06/2020 ATTENDING MD: TALIA ORELLANA : AGE: 74 MARITAL STATUS: M DC PLAN ID: [id number] FACILITY: [facility] PRINTED ON: 08/06/20 18:49 CT All edits/amendments must be made on the electronic document DICTATION DATE: 08/06/201848 RAILROAD ACCOUNTANT: IMANI 08/06/201848 RPT#: [id number] DC DATE:08/06/20 STATUS: DIS IN [facility] [address] [place] [address] END OF REPORT
== END 2020-08-06 17:00 | DRG 270 ==
LOC: D.CVICU 07-23 05:13 → D.SDCHOLD 07-23 05:13 → D.CVICU 07-23 11:13
PROVIDERS: Emergency Medicine; Family Medicine; Internal Medicine Interventional Cardiology; Internal Medicine Nephrology; Internal Medicine Pulmonary Disease; ADMIT Thoracic Surgery (Cardiothoracic Vascular Surgery); ATTEND Thoracic Surgery (Cardiothoracic Vascular Surgery)
PROC: 5A09357 Assistance with Respiratory Ventilation, Less than 24 Consecutive Hours, Continuous Positive Airway Pressure (ICD-10-PCS; 2020-07-23)
PROC: 04100ZK Bypass Abdominal Aorta to Bilateral Femoral Arteries, Open Approach (ICD-10-PCS; principal; 2020-07-23 07:30)
DX: I70.203 Unspecified atherosclerosis of native arteries of extremities, bilateral legs (principal); J96.90 Respiratory failure, unspecified, unspecified whether with hypoxia or hypercapnia; J15.1 Pneumonia due to Pseudomonas; N17.9 Acute kidney failure, unspecified; K56.7 Ileus, unspecified; I71.4 Abdominal aortic aneurysm, without rupture; I10 Essential (primary) hypertension; F17.200 Nicotine dependence, unspecified, uncomplicated; J44.9 Chronic obstructive pulmonary disease, unspecified; G47.33 Obstructive sleep apnea (adult) (pediatric); D64.9 Anemia, unspecified; E83.41 Hypermagnesemia; J02.9 Acute pharyngitis, unspecified; I25.10 Atherosclerotic heart disease of native coronary artery without angina pectoris; E88.09 Other disorders of plasma-protein metabolism, not elsewhere classified

== ENCOUNTER 2020-08-06 17:41 | Inpatient (IN) | payer MEDICARE, BC ==
[~2020-08-06] VITALS: Ht 177.8 cm; Wt 96.8 kg
[~2020-08-06 17:41] MED LIST changes: +COLACE100 MG PO; +INCRUSE ELLI62.5 MCG INH; +K-DUR20 MEQ; +LASIX40 MG PO; +POTASSIUM CHLO10 ME1 PO; +TOPROL XL25 MG PO
[2020-08-06 19:58] VITALS: BP 146/58
[2020-08-07 00:23] VITALS: BP 146/58; BMI 31.9
[2020-08-07 07:19] LABS: BASOPHILS 0.2 % (0-2); EOSINOPHILS 2.2 % (0-7); HEMATOCRIT 31.4 % (42.0-54.0); HEMOGLOBIN 10.2 g/dL (13.5-17.5); IMMATURE GRANULOCYTES 0.8 % (0-5); LYMPHOCYTE ABS# 1.04 10x3/uL (1.32-3.57); LYMPHOCYTES 11.4 % (15-50); MCH 30.8 pg (26.0-34.0); MCHC 32.5 g/dL (31.0-37.0); MCV 94.9 fL (80.0-100.0); MONOCYTES 10.2 % (2-11); NEUTROPHIL ABS# 6.89 10x3/uL (1.78-5.38); NEUTROPHILS 75.2 % (40-80); PLATELET COUNT 216 10x3/uL (130-400); RBC 3.31 10x6/uL (4.20-6.10); RDW 15.1 % (11.5-14.5); WBC 9.2 10x3/uL (4.8-10.8)
[2020-08-07 07:26] LABS: ANION GAP 13.2 mmol/L (8-16); CALCIUM 8.3 mg/dL (8.5-10.1); CARBON DIOXIDE 24.8 mmol/L (21.0-32.0); CREATININE - SERUM 2.2 mg/dL (0.6-1.3)
[2020-08-07 07:51] VITALS: BP 147/55
--- NOTE | 2020-08-07 08:00 | NUR ---
PATIENT IS ALERT/ORIENT. SITTING UP IN BED TO EAT BREAKFAST. BED ALARM ON. CALL LIGHT WITHIN REACH. VOICES NO NEEDS AT THIS TIME. WILL CONTINUE WITH PLAN OF CARE
--- NOTE | 2020-08-07 09:59 | NUR ---
PATIENT IN REHAB ROOM. WORKING WITH PHYSICAL THERAPIST. DENIES ANY PAIN/DISC AT THIS TIME.
[2020-08-07 13:24] VITALS: Ht 177.8 cm; Wt 96.8 kg
--- NOTE | 2020-08-07 13:47 | NUR ---
MEPILEX REMOVED FROM COCCYX. STAGE II AREA MEASURING 4CM WIDE BY 6CM HIGH. SKIN CLEANED. NEW MEPILEX APPLIED
--- NOTE | 2020-08-07 15:00 | NUR ---
I have reviewed this patient and I concur with the Shift Assessment completed by the Licensed Practical Nurse today this shift.
--- NOTE | 2020-08-07 18:00 | NUR ---
PATIENT HELPED TO TOILET. LARGE BOWEL MOVEMENT. VOIDED LARGE AMOUNT OF URINE.
[2020-08-07 21:24] VITALS: BP 141/62
--- NOTE | 2020-08-08 01:10 | NUR ---
LYING IN BED. C/O BILATERAL FEET HURTING. ADJUSTED PILLOW AND REPOSITIONED FOR COMFORT. STATES NO FURTHER NEEDS. CALL LIGHT WITHIN REACH
[2020-08-08 07:42] VITALS: BP 139/69
--- NOTE | 2020-08-08 08:00 | NUR ---
PT RESTING IN BED WITH EYES OPEN CALL LIGHT IN REACH WILL MONITER
--- NOTE | 2020-08-08 17:05 | NUR ---
PT RESTING IN BED WITH EYES OPEN CALL LIGHT IN REACH WILL MONITER
--- NOTE | 2020-08-08 19:04 | NUR ---
BEDSIDE SHIFT REPORT, INFORMED PT THAT I WILL BE BACK SHORTLY TO DO ASSESSMENT, PT VERBALIZES UNDERSTANDING, PT RECEIVING RESP TREATEMENT AT THIS TIME
--- NOTE | 2020-08-08 19:45 | NUR ---
ASSESSMENT PER FLOW SHEET, VS OBTAINED PER [facility] WITH [facility]I WITH NO DRAINAGE NOTED, DUNCAN WRAPS IN PLACE WITH NO DRAINAGE NOTED, MEPILEX IN PLACE, PT REPORTS FLATUS, BM TODAY, AND VOIDING WITH NO DIFFICULTY, LEGS READJUSTED PER REQUEST, EXTRA PILLOW PROVIDED, PT REQUESTS PAIN MED WHEN DUE, INFORMED PT THAT I WILL CHECK ON THAT AND BRING IT WHEN DUE, PT VERBALIZES UNDERSTANDING, DENIES FURTHER NEEDS, BED IN LOW POSITION, SIDE RAILS X 2, CALL LIGHT IN REACH
--- NOTE | 2020-08-08 20:20 | NUR ---
PT AWAKE, WATCHING TV AND USING I.S. WITH GOOD EFFORT, PT DENIES NEEDS AT THIS TIME
[2020-08-08 20:42] VITALS: BP 111/58
--- NOTE | 2020-08-08 21:10 | NUR ---
PT AWAKE, ADM 2100 MEDS AND PAIN MED PER MD ORDERS, SEE EMAR, PT DENIES FURTHER NEEDS
--- NOTE | 2020-08-08 22:06 | NUR ---
PT RESTING WITH EYES CLOSED, RESP QUIET, NO DISTRESS NOTED, LEFT UNDISTURBED AT THIS TIME, PT HAS CPAP, FALL PRECAUTIONS IN PLACE
--- NOTE | 2020-08-09 00:20 | NUR ---
PT RESTING WITH EYES CLOSED, RESP QUIET, NO DISTRESS NOTED, LEFT UNDISTURBED AT THIS TIME, FALL PRECAUTIONS IN PLACE
--- NOTE | 2020-08-09 02:35 | NUR ---
PT RESTING WITH EYES CLOSED, RESP QUIET, NO DISTRESS NOTED, LEFT UNDISTURBED AT THIS TIME, FALL PRECAUTIONS IN PLACE
--- NOTE | 2020-08-09 05:30 | NUR ---
PT RESTING WITH EYES CLOSED, AROUSES TO SOFT VERBAL STIMULATION, PT UP TO BEDSIDE COMMODE PER THIS RN AND SHAHRAM FUNK, STRUCTURAL STEEL ENGINEER NURSE, PT VOIDED SMALL AMOUNT OF URINE, STATES "I'M SURE I WILL DO BETTER ONCE I GET UP TO THE TOILET, BUT I'M NOT READY RIGHT NOW", PT BACK TO BED, DENIES NEED FOR PAIN MED AT THIS TIME
--- NOTE | 2020-08-09 06:37 | NUR ---
PT MANAGER INVESTMENT BANKING LIGHT, REQUESTED AND ADM PAIN MED, WITH FRESH H20, DENIES FURTHER NEEDS, BED IN LOW POSITION, SIDE RAILS X 2, CALL LIGHT IN REACH
[2020-08-09 07:26] VITALS: BP 128/51
--- NOTE | 2020-08-09 07:28 | NUR ---
PT RESTING IN BED WITH EYES OPEN CALL LIGHT IN REACH NO PROBLEMS ILL MONITER
[2020-08-09 07:52] LABS: BASOPHILS 0.2 % (0-2); EOSINOPHILS 2.2 % (0-7); HEMATOCRIT 33.8 % (42.0-54.0); IMMATURE GRANULOCYTES 0.5 % (0-5); LYMPHOCYTE ABS# 0.85 10x3/uL (1.32-3.57); MCH 31.2 pg (26.0-34.0); MCHC 32.5 g/dL (31.0-37.0); MCV 95.8 fL (80.0-100.0); MEAN PLATELET VOLUME 10.2 fL (7.4-10.4); MONOCYTES 14.7 % (2-11); NEUTROPHIL ABS# 6.16 10x3/uL (1.78-5.38); NEUTROPHILS 72.4 % (40-80); PLATELET COUNT 239 10x3/uL (130-400); RBC 3.53 10x6/uL (4.20-6.10); RDW 14.5 % (11.5-14.5); WBC 8.5 10x3/uL (4.8-10.8)
[2020-08-09 08:07] LABS: ANION GAP 13.6 mmol/L (8-16); CALCIUM 8.5 mg/dL (8.5-10.1); CREATININE - SERUM 2.3 mg/dL (0.6-1.3); POTASSIUM - SERUM 4.6 mmol/L (3.5-5.1)
--- NOTE | 2020-08-09 18:18 | NUR ---
PT RESTING IN BED WITH EYES OPEN CALL LIGHT IN REACH NO PROBLEMS WILL MONITER
[2020-08-09 19:00] VITALS: BP 136/58
--- NOTE | 2020-08-09 19:52 | NUR ---
PATIENT RECEIVED SITTING UP IN BED. ASSESSMENT & VITAL SIGNS DONE.C/O SHORTNESS OF BREATH. RESPIRATORY CALLED & IS HERE. BED LOW. ALARM ON. CALL LIGHT & BEDSIDE TABLE WITHIN REACH. WILL CONTINUE TO MONITOR.
--- NOTE | 2020-08-09 23:14 | NUR ---
PATIENT USED CALL LIGHT FOR ASSIST TO BATHROOM. PATIENT OUT OF BREATH. SLOWLY RETURNED TO WHEELCHAIR. STOOD UP TO SINK & BRUSHED HIS TEETH. SLOWLY RETURNED TO WHEELCHAIR. PATIENT SITTING IN WHEELCHAIR AT BEDSIDE. RESPIRATORY CALLED & HELPED WITH PATIENT CPAP. PATIENT RETURNED TO BED SLOWLY TURNED LEGS INTO BED. BED IMMEDIATELY RAISED UP 90 DEGREES. BED LOW. PILLOWS UNDER FEET. ALARM ON. CALL LIGHT, BEDSIDE TABLE, & URINAL WITHIN REACH. WILL CONTINUE TO MOMITOR.
--- NOTE | 2020-08-10 04:46 | NUR ---
I have reviewed this patient and I concur with the Shift Assessment completed by the Licensed Practical Nurse today this shift.
[2020-08-10 07:00] VITALS: BP 144/66
--- NOTE | 2020-08-10 09:15 | NUR ---
HE IS SETTING UP IN THE BED EATING BREAKFAST. HE HAS MARVIN IN IS ABD, BOTH GROIN AREAS. HIS LEGS AND TESTICLES ARE SWOLLEN. THE CALL LIGHT IS WITHIN REACH AND THE BED ALARM IS ON. HE IS WEARING 2 LITERS NC.
[2020-08-10 19:00] VITALS: BP 180/75
--- NOTE | 2020-08-10 19:26 | NUR ---
PATIENT RECEIVED STTTING UP IN BED. ASSESSMENT & VITAL SIGNS DONE. NO C/O PAIN OR DISTRESS AT THIS TIME. MOD ASSIST TO BATHROOM IN & OUT OF WHEELCHAIR & BED PATIENT MOVES SLOW D/T SHORTNESS OF BREATH. DAUGHTER VISITNG. ALARM ON. CALL LIGHT WITHIN REACH. WILL CONTINUE TO MONITOR.
--- NOTE | 2020-08-10 23:00 | NUR ---
PATIENT USED CALL LIGHT FOR ASSIST TO BATHROOM. PATIENT INDEPENDENT IN & OUT OF BED. STANDBY & MINIMAL ASSIST ON & OFF COMMODE. TIME 45 MINUTES. PATIENT HAS TO SIT & REST PER MOVEMENT. PATIENT ASSIST WITH CPAP WHEN RETURNED TO BED. PATIENT HAD VOID ONLY. BED LOW. ALARM ON. SCDS ON. SWELLING TO LOWER & UPPER LEGS & TORSO DECREASED. NO PITTING. CALL LIGHT & BEDSIDE TABLE WITHIN REACH. WILL CONTINEUT TO MONITOR.
--- NOTE | 2020-08-11 01:00 | NUR ---
I have reviewed this patient and I concur with the Shift Assessment completed by the Licensed Practical Nurse today this shift.
--- NOTE | 2020-08-11 03:06 | NUR ---
PATIENT EYES CLOSED. CPAP CONTINUES. SCD'S ON & WORKING. BED LOW. ALARM ON. CALL LIGHT & BEDSIDE TABLE WITHIN REACH. WILL CONTINUE TO MONITOR.
--- NOTE | 2020-08-11 09:00 | NUR ---
HE IS USING THE WHEELCHAIR TO GET TO THE BATHROOM. HE IS VERY SLOW TO MOVE, SOB AT REST. HIS TESTICLES AND LEGS ARE SWOLLEN. HIS FEET ARE VERY DRY & FLAKEY. THE CALL LIGHT IS WITHIN REACH AND THE CHAIR ALARM IS ON.
[2020-08-11 19:00] VITALS: BP 147/56
--- NOTE | 2020-08-11 20:00 | NUR ---
PATIENT RECEIVED SITTING UP IN BED. DAUGHTER IN ROOM. VITAL SIGNS & ASSSESSMENT DONE. O2 2L NC CONTINUES FOR SHORTNESS OF BREATH. BED LOW. ALARM ON. CALL LIGHT WITHIN REACH. WILL CONTINUE TO MONITOR.
--- NOTE | 2020-08-12 01:30 | NUR ---
PATIENT USED CALL LIGHT FOR ASSIST. PATIENT SAT ON SIDE OF BED, RESTED. THEN TRANSFERRED INTO WHEELCHAIR, STANDBY ASSIST. RESTED. PATIENT SAT ON COMMODE. VOID ONLY. AGREED TO TAKE A BATH. SAT THERE LONGER. "I NEED A BREATHING TREATMENT." SAT IN CHAIR THIS NURSE CALLED RESPIRATORY. RESPIRATORY TALIA STATED "HE HAD NO PRN TREATMENT." KEN PERDOMO CALLED & ORDERED ALBUTEROL UPDRAFT. ORDER WRITTEN. RESPIRATORY CALLED.
--- NOTE | 2020-08-12 02:26 | NUR ---
PATIENT BREATHING 18 & EVEN. PAIN LEVEL 3. CPAP BACK ON. BED LOW. CALL LIGHT WITHIN REACH. ALARM ON. BEDISDE TABLE WITHIN REACH. WILL CONTINUE TO MONITOR.
--- NOTE | 2020-08-12 03:27 | NUR ---
PATIENT EYES CLOSED. CPAP CONTINUES. BED LOW. ALARM ON. CALL LIGHT & BESIDE TABLE WITHIN REACH. WILL CONTINUE TO MONITOR.
--- NOTE | 2020-08-12 05:09 | NUR ---
I have reviewed this patient and I concur with the Shift Assessment completed by the Licensed Practical Nurse today this shift.
[2020-08-12 06:51] LABS: BASOPHILS 0.4 % (0-2); EOSINOPHILS 5.1 % (0-7); HEMATOCRIT 28.9 % (42.0-54.0); HEMOGLOBIN 9.4 g/dL (13.5-17.5); IMMATURE GRANULOCYTES 0.4 % (0-5); LYMPHOCYTE ABS# 0.77 10x3/uL (1.32-3.57); LYMPHOCYTES 15.7 % (15-50); MCH 30.7 pg (26.0-34.0); MCHC 32.5 g/dL (31.0-37.0); MCV 94.4 fL (80.0-100.0); MEAN PLATELET VOLUME 10.2 fL (7.4-10.4); MONOCYTES 18.2 % (2-11); NEUTROPHIL ABS# 2.94 10x3/uL (1.78-5.38); NEUTROPHILS 60.2 % (40-80); RBC 3.06 10x6/uL (4.20-6.10); RDW 13.9 % (11.5-14.5); WBC 4.9 10x3/uL (4.8-10.8)
[2020-08-12 06:55] LABS: PLATELET COUNT 162 10x3/uL (130-400)
[2020-08-12 07:00] LABS: ANION GAP 11.3 mmol/L (8-16); CALCIUM 7.7 mg/dL (8.5-10.1); CARBON DIOXIDE 26.1 mmol/L (21.0-32.0); CREATININE - SERUM 2.2 mg/dL (0.6-1.3); POTASSIUM - SERUM 4.4 mmol/L (3.5-5.1)
[2020-08-12 07:55] VITALS: BP 120/53
--- NOTE | 2020-08-12 08:00 | NUR ---
PT RESTING IN BED WITH EYES OPEN CALL LIGHT IN REACH NO PROBLEMS WILL MONITER
--- NOTE | 2020-08-12 15:03 | NUR ---
Nutrition Follow-up: Nephrology consulted for "volume overload"- per MD notes. Diet: Cardiac PO intake: ~62% average x last 9 meals Last BM: 08/11/20 Wt: 222# (08/07/20)- no new weight Meds noted: bumex, miralax, k-dur Labs noted: BUN 30(H), Cr 2.2(H), GFR 31(L), Glu 118(H) Skin: PU stage II x 3 to coccyx/buttocks Recommend continue current diet/or per MD. Will continue to honor food preferences within diet restrictions. RD will re-assess 08/14/20.
--- NOTE | 2020-08-12 18:39 | NUR ---
PT RESTING IN BED WITH EYES OPEN CALL LIGHT IN REACH NO PROBLEMS WILL MONITER
[2020-08-12 19:37] VITALS: BP 115/44
--- NOTE | 2020-08-12 20:00 | NUR ---
ASSISED PT TO THE RESTROOM. HE APPEARS VERY ANXIOUS. HE IS RESTLESS, CONTINUES TO TELL THE OTHER NURSE AND I HOW TO TRANSFER HIM FROM BED TO WHEELCHAIR AND WHEELCHAIR TO TOILET. HE IS SHORT OF BREATH. O2 ON 2L VIA NC AND O2 SAT IS 90%. O2 INCREASED TO 4L AND PT REPORTS THAT HELPS. HE REPORTS PAIN 9/10 TO BILATERAL LOWER EXTREMITIES. PERCOCET AND XANAX GIVEN ORDERED. O2 TURNED BACK DOWN TO 2L AFTER GETTING HIM COMFORTABLE IN BED. O2 SAT IS NOW 93%. PREPARED HIS CPAP FOR BEDTIME USE. GAVE HIM FRESH WATER AND AN EXTRA BLANKET. IV TO RIGHT HAND FLUSHED WITHOUT DIFFICULTY. 2 BOTTLES OF ALBUMIN TO BE GIVEN ORDERED. BED ALARM ON AND CALL LIGHT WITHIN REACH. HIS DAUGHTER IS AT BEDSIDE.
[2020-08-13 07:31] VITALS: BP 136/56
--- NOTE | 2020-08-13 09:00 | NUR ---
PT USING URINAL DUE TO SWELLING WHEN URINAL WAS PULLED OUT CAUSED IRRITATION TO PENIS WITH MINIMAL BLEEDING NATHANIEL MALIK AND ARI GOVEA
--- NOTE | 2020-08-13 13:20 | NUR ---
PATIENT ADMITTS TO REHAB FROM AN ACUTE FLOOR. DR. BRYAN YAÑEZ IS HIS PCP. DME AT HOME IS A WALKER. DISCHARGE PLANS ARE FOR PATIENT TO RETURN TO HIS HOME. WILL CONTINUE TO FOLLOW WITH PATIENT.
[2020-08-13 15:05] LABS: ANION GAP 14.6 mmol/L (8-16); CALCIUM 8.6 mg/dL (8.5-10.1); CARBON DIOXIDE 27.6 mmol/L (21.0-32.0); CREATININE - SERUM 2.4 mg/dL (0.6-1.3); POTASSIUM - SERUM 4.2 mmol/L (3.5-5.1)
--- NOTE | 2020-08-13 18:37 | NUR ---
PT RESTING IN WHEELCHAIR CALL LIGHT IN REACH NO PROBLEMS WILL MONITER
[2020-08-14 07:05] LABS: BASOPHILS 0.3 % (0-2); EOSINOPHILS 5.3 % (0-7); HEMATOCRIT 27.5 % (42.0-54.0); HEMOGLOBIN 9.3 g/dL (13.5-17.5); LYMPHOCYTES 7.5 % (15-50); MCH 31.4 pg (26.0-34.0); MCHC 33.6 g/dL (31.0-37.0); MCV 93.3 fL (80.0-100.0); MEAN PLATELET VOLUME 8.1 fL (7.4-10.4); MONOCYTES 11.2 % (2-11); NEUTROPHILS 75.7 % (40-80); PLATELET COUNT 141 10x3/uL (130-400); RBC 2.95 10x6/uL (4.20-6.10); RDW 14.4 % (11.5-14.5); WBC 6.8 10x3/uL (4.8-10.8)
[2020-08-14 07:16] LABS: ANION GAP 15.4 mmol/L (8-16); CALCIUM 8.6 mg/dL (8.5-10.1); CARBON DIOXIDE 26.8 mmol/L (21.0-32.0); CREATININE - SERUM 2.1 mg/dL (0.6-1.3); MAGNESIUM - SERUM 2.1 mg/dL (1.8-2.4); POTASSIUM - SERUM 4.2 mmol/L (3.5-5.1)
--- NOTE | 2020-08-14 07:41 | NUR ---
PATIENT RESTING WELL. WATCHIN T.V. OXYGEN ON AT 3L PER N/C. BED ALARM ON. CALL LIGHT WTHIN REACH. VOICES NO NEEDS AT THIS TIME.
[2020-08-14 08:09] VITALS: BP 145/67
--- NOTE | 2020-08-14 09:56 | NUR ---
Nutrition Re-Assessment Diet: Cardiac PO intake: 100% x last 6 meals Last BM: 08/13/20 Wt: 222# (08/07/20) Meds noted: bumex, albumin, miralax, k-dur Labs noted: BUN 31(H), Cr 2.1(H), GFR 33(L), Glu 124(H) Skin: stage II PU x 3 to buttocks/coccyx Estimated nutrition needs: [id number] jojo (25-30kcal/kg IBW), 60-80gms protein (0.6-0.8gm/kg), 1900-2275mL fluid (or per MD) Nutrition diagnosis: Increased nutrient needs (amino acids and micronutrients) r/t increased demand for wound healing AEB stage II PU x 2 to coccyx/buttocks. Nutrition goals: -PO intake to continue =/>75% -Stable dry weight or appropriate weight loss of no more than ~1-2#/week DHS -Improved skin integrity/documented wound healing/improvment Recommendations/Interventions: -Continue current diet. Will continue to honor food preferences within diet restictions. -Will add Tommie BID for nutritionally aided wound healing. -Will continue to monitor PO intake and wt trend. -RD will follow-up within 7 days.
--- NOTE | 2020-08-14 10:55 | NUR ---
PATIENT IN REHAB ROOM. WORKING WITH PHYSICAL THERAPIST. DENIES ANY PAIN/DISC AT THIS TIME.
--- NOTE | 2020-08-14 13:21 | NUR ---
DR Gavino MIGUEL IN FOR CARE PLAN MEETING. NEW ORDERS RECEIVED
--- NOTE | 2020-08-14 16:00 | NUR ---
I have reviewed this patient and I concur with the Shift Assessment completed by the Licensed Practical Nurse today this shift.
--- NOTE | 2020-08-14 19:02 | NUR ---
RESPITORY THERAPIST IN PATIENTS ROOM. GIVING PATIENT A BREATHING TX
[2020-08-14 20:05] VITALS: BP 133/54
--- NOTE | 2020-08-15 04:59 | RHP ---
PATIENT: LEONIDES LASSITER MEDICAL RECORD: [id number] ACCOUNT: [id number] LOCATION:[facility] D.1109 : 47 ADMISSION DATE: 08/06/20 REHABILITATION HISTORY AND PHYSICAL EXAMINATION POST ADMISSION PHYSICIAN EXAMINATION POST ADMISSION PHYSICAL EXAMINATION AND HISTORY AND PHYSICAL ADMITTING DIAGNOSIS: Critical illness myopathy. HISTORY OF PRESENT ILLNESS: The patient is a 74-year-old gentleman who has got a history of COPD. He is a current every day smoker user. He has got coronary artery disease and had coronary artery bypass grafting in the past. 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 He experienced some postop respiratory failure and was put in the CV ICU on the vent. Pulmonary followed him throughout his stay. He was eventually extubated. The patient has been followed throughout his stay by cardiology, pulmonary and also CV surgery. He was also placed on vancomycin, but secondary to his renal functions this had to be adjusted. The patient has also been seen by nephrology throughout his stay, following at this time, at this time, he is able to sit up on the side of the bed with max assist. He has got proximal muscle weakness. He requires constant cueing to control his bleeding. He is unable to get out of bed by the afternoon because of his weakness. The patient has taken 10 steps, but he felt pretty dizzy. His therapist put him back in bed. He has progressed to 120 feet with full rest pace with CGA to ambulate with slow tarsha. He has decreased step length. He has noted decreased endurance. He needs to be placed in the rehab prior to going home. His labs will be monitored closely as well as his cognition. He may need medication adjustments, monitoring his pain control, decreased activity tolerance, decreased strength, balance deficit, decreased range of motion, gait disturbance. He will require intensive therapy to get back to his prior level of functioning. COMORBIDITIES: In this patient include acute kidney injury, anemia, anxiety, chronic back pain, chronic constipation, dyslipidemia, electrolyte imbalance, fatigue, hyperglycemia, hypoalbuminemia, metabolic acidosis, pain, postop anemia, renal failure, safety issues, shortness of breath and urinary retention. PAST MEDICAL HISTORY: Significant for hypertension, COPD, bronchitis, sleep apnea, chronic shortness of breath, chronic rhinitis, peripheral vascular disease, constipation, arthritis, chronic back pain, anxiety, edema, dyslipidemia. PAST SURGICAL HISTORY: Includes coronary artery bypass grafting and a knee scope. ALLERGIES: No known drug allergies. CURRENT MEDICATIONS: Include potassium 20 mEq daily. He is on Toprol 25 mg daily, furosemide 40 mg daily, omega 3 one cap daily, aspirin 81 mg daily, vitamin C 1000 mg daily, Perforomist 20 mcg daily, budesonide 0.5 mg b.i.d., Zofran 4 mg q.6 hours, Percocet 5/325 one tab q.4 hours p.r.n. and Colace 100 mg b.i.d. HABITS: Does have a history of tobacco use. HISTORY AND PHYSICAL [id number] LEONIDES LASSITER FAMILY HISTORY: Noncontributory. SOCIAL HISTORY: The patient hopes to return back home and get back to his prior level of functioning. REVIEW OF SYSTEMS: GENERAL: He does complain of weakness and fatigue. HEENT: Denies cold, cough or congestion. CARDIOVASCULAR: Denies any chest pain. PHYSICAL EXAMINATION: VITAL SIGNS: Stable, afebrile. GENERAL: A somewhat obese gentleman in no acute distress, alert upon exam. HEENT: Normocephalic and atraumatic. Mucosa moist. NECK: Supple. No lymphadenopathy. LUNGS: Clear at this time in the upper harvey although he does have decreased breath sounds in the bases. CARDIOVASCULAR: Regular rate and rhythm. ABDOMEN: Soft, benign, nondistended. Positive bowel sounds times 4. EXTREMITIES: No clubbing, cyanosis or edema. NEUROLOGIC: He does have some diffuse weakness. LABORATORY DATA: White count is 9.2, H&H 10.2 and 31.4 and platelet count is 216. Sodium 137, potassium 4.0, BUN and creatinine of 27 and 2.2 and blood sugar is noted to be 122. ASSESSMENT: This is a 74-year-old gentleman admitted to the rehab with a working diagnosis of critical illness myopathy. The patient has potential to make improvement. We instituted the following multidisciplinary therapies including, not limited to physical, occupational, respiratory, speech, nutritional services, prosthetics and orthotics. Given his complex medical condition and risks for more complications, rehabilitation services cannot be provided at a low level of care such as long term facility. PLAN: 1. Admit to [facility] for inpatient therapy to include the following disciplines; A. Physical therapy to improve gait, all transfer skills and bed mobility to a modified independent level. B. Occupational therapy to improve activities of daily living. C. Case management to help with discharge planning and placement options. D. Nutrition to assist with nutritional needs. E. Rehabilitation nursing to assist in monitoring the patient's underlying medical conditions and to assist with any type of bowel or bladder management. 2. The patient's current medication and medical care will be continued. 3. The patient will be placed on standard fall precautions. 3. The patient's estimated length of stay approximately 7-10 days. 4. We will discuss this patient during care team staff meeting today at noon. TRANSINT:[id number] Voice Confirmation ID: [id number] DOCUMENT ID: [id number] 08/09/2020 yadira CASTANO notes whether there has been none or any medical/functional HISTORY AND PHYSICAL [id number] LEONIDES LASSITER change since admission: - No change since preadmission screen. EYAD attests patient continues to be appropriate for IRF: - Continues to be appropriate. MANJINDER MIGUEL MD at 0459 CC: [id number] DICTATION DATE: 08/07/20 0855 CIVIL ENGINEER IN TRAINING: 08/07/20 1027 ADM IN [place] [id number] [place] [id number]
[2020-08-15 07:32] VITALS: BP 130/57
--- NOTE | 2020-08-15 10:00 | NUR ---
HE IS SETTING UP IN BED. HE IS SLOW TO SWALLOW IS PILLS, SOME HAVE TO BE CUT IN HALF. HE HAS BIALTERAL LOWER LEG EDEMA, WITH DRY FLAKEY SKIN. WE HAVE HIS LEGS ELEVATED ON PILLOWS. WE ARE TURNING HIM AND PLACING PILLOWS BEHIND HIM, HE DOES NOT LIKE THE WEDGE. HE HAS MARVIN IN HIS CHEST AND BILATERAL GROIN. THE CALL LIGHT IS WITHIN REACH AND THE BED ALARM IS ON.
[2020-08-15 13:03] LABS: ANION GAP 14.6 mmol/L (8-16); CARBON DIOXIDE 28.3 mmol/L (21.0-32.0); CREATININE - SERUM 2.2 mg/dL (0.6-1.3); POTASSIUM - SERUM 3.9 mmol/L (3.5-5.1)
[2020-08-15 20:23] VITALS: BP 137/63
--- NOTE | 2020-08-15 22:46 | NUR ---
RECIEVED PATIENT IN BED AWAKE AND VISTING WITH FAMILY, BED IN LOW LOCKED POSITION, SIDE RAIL UP X2, CALL LIGHT AND BEDSIDE TABLE IN REACH, EDEMA TO LOWER LEGS, FEET ELEVATED ON PILLOWS, SL LOCK TO RIGHT WRIST, MARVIN TO CHEST AND GROIN, O2 AT 3 LITERS VIA NC, NO ACUTE DISTRESS NOTED.
--- NOTE | 2020-08-16 00:06 | NUR ---
PATIENT STATED HE COULD NOT BREATH, O2 AT 72% AND PLUSE AT 118, PATIENT VERY ANXIOUS AND RESTLESS, RAPID RESPONCE CALLED, HOME CPAP STARTED BY RESPONCE TEAM, PATIENT O2 UP TO 93% AND PLUSE AT 106, HOB AT 45 DEGREES FOR COMFORT, WILL CONTINUE TO MONITOR.
--- NOTE | 2020-08-16 00:55 | NUR ---
RESPIRATORY THERAPIST AUNG HERE AND ADJUST O2 CPAP SETTINGS DUE TO PATIENT O2 SATURATION 83-87% PATIENT STILL ANXIOUS. BLOOD GASES DRAWN. DR MYRIAM HILLS. AFTER 10 MINUTES, O2 SATURATION 92% NOW WITH CPAP ON. PATIENT CALM AT PRESENT.
--- NOTE | 2020-08-16 01:16 | NUR ---
TALKED WITH PARACHUTE INSPECTOR. O2 INCREASED TO 5L. WILL CONTINUE TO MONITOR CLOSELY.
== END 2020-08-16 02:12 | disposition short-term general hospital (02) | DRG 92 ==
LOC: D.REHAB 17:41
PROVIDERS: Internal Medicine; ADMIT Emergency Medicine; ATTEND Emergency Medicine
DX: G72.81 Critical illness myopathy (principal); N17.9 Acute kidney failure, unspecified; E87.2 Acidosis; E87.1 Hypo-osmolality and hyponatremia; D64.9 Anemia, unspecified; F41.9 Anxiety disorder, unspecified; G89.29 Other chronic pain; E78.5 Hyperlipidemia, unspecified; E87.8 Other disorders of electrolyte and fluid balance, not elsewhere classified; K59.09 Other constipation; R53.83 Other fatigue; R73.9 Hyperglycemia, unspecified; R06.02 Shortness of breath; R33.9 Retention of urine, unspecified; I73.9 Peripheral vascular disease, unspecified; E66.9 Obesity, unspecified; G47.33 Obstructive sleep apnea (adult) (pediatric); R26.2 Difficulty in walking, not elsewhere classified; Z68.31 Body mass index [BMI] 31.0-31.9, adult

== ENCOUNTER 2020-08-16 02:05 | Inpatient (IN) | payer MEDICARE, BC ==
[~2020-08-16] VITALS: Ht 177.8 cm; Wt 96.1 kg
[2020-08-16] VITALS (22 sets, daily range): BP systolic 90–201; BP diastolic 53–96; Ht 177.8 cm; Wt 96.1 kg
--- NOTE | 2020-08-16 02:20 | NUR ---
PT RECIEVED VIA HOSPITAL BED WITH NURSE AT BEDSIDE. TRANSFERED TO ICU BED ATTACHED TO MONITOR. SEE ADMISSON ASSESSMENT FOR FINDINGS, BED IN LOWEST POSITITON, CALL LIGHT IN REACH. WILL CONTINUE TO MONITOR
[2020-08-16 03:14] LABS: BASOPHILS 0.2 % (0-2); EOSINOPHILS 4.2 % (0-7); HEMATOCRIT 26.7 % (42.0-54.0); HEMOGLOBIN 8.9 g/dL (13.5-17.5); LYMPHOCYTES 3.6 % (15-50); MCH 31.4 pg (26.0-34.0); MCHC 33.4 g/dL (31.0-37.0); MCV 94.1 fL (80.0-100.0); MONOCYTES 7.3 % (2-11); NEUTROPHILS 84.7 % (40-80); PLATELET COUNT 165 10x3/uL (130-400); RBC 2.83 10x6/uL (4.20-6.10); RDW 14.2 % (11.5-14.5)
[2020-08-16 03:15] LABS: WBC 9.7 10x3/uL (4.8-10.8)
[2020-08-16 03:19] LABS: APTT 33.1 SECONDS (22.8-39.4); INR 1.42 (0.85-1.17); PROTIME 16.1 SECONDS (11.6-15.0)
[2020-08-16 03:31] LABS: D-DIMER-QUANTITATIVE 5.07 ug/mLFEU (0.20-0.54)
[2020-08-16 03:48] LABS: ALBUMIN 4.7 g/dL (3.4-5.0); ALKALINE PHOSPHATASE 87 U/L (30-120); ALT (SGPT) 41 U/L (10-68); BILIRUBIN - TOTAL 0.75 mg/dL (0.2-1.3); CALC OSMOLALITY 289 mosm/kg (275-300); CALCIUM 8.7 mg/dL (8.5-10.1); CARBON DIOXIDE 27.8 mmol/L (21.0-32.0); CHLORIDE - SERUM 99 mmol/L (98-107); CKMB 1.3 U/L (0.0-3.6); CREATINE KINASE 67 UL (21-232); CREATININE - SERUM 2.2 mg/dL (0.6-1.3); GLUCOSE 198 mg/dL (74-106); PRO BNP 7850 pg/mL (0-125); PROTEIN - SERUM 7.5 g/dL (6.4-8.2); SODIUM 138 mmol/L (136-145); TROPONIN-I < 0.017 ng/mL (0.000-0.060); UREA NITROGEN 34 mg/dL (7-18); eGFR NON AFRICAN AMERICAN 31 mL/min (90-120)
--- NOTE | 2020-08-16 05:51 | NUR ---
DR. MILDRED HILLS FOR CONSULT
--- NOTE | 2020-08-16 05:58 | NUR ---
DR. LEVY RETURNED PAGE, AWARE OF CONSULT
--- NOTE | 2020-08-16 06:25 | NUR ---
SPOKE WITH DAUGHTER KENIA, SHE IS AWARE HE HAS BEEN MOVED TO ICU
[2020-08-16 09:49] LABS: CKMB 1.8 U/L (0.0-3.6); CREATINE KINASE 79 UL (21-232)
[2020-08-16 09:50] LABS: TROPONIN-I < 0.017 ng/mL (0.000-0.060)
[2020-08-16 14:52] LABS: CKMB 1.4 U/L (0.0-3.6); CREATINE KINASE 62 UL (21-232); TROPONIN-I < 0.017 ng/mL (0.000-0.060)
[2020-08-17] VITALS (22 sets, daily range): BP systolic 99–140; BP diastolic 46–87
[2020-08-17 05:12] LABS: BASOPHILS 0.1 % (0-2); EOSINOPHILS 0 % (0-7); HEMATOCRIT 25.2 % (42.0-54.0); HEMOGLOBIN 8.4 g/dL (13.5-17.5); LYMPHOCYTES 7.7 % (15-50); MCH 31.2 pg (26.0-34.0); MCHC 33.4 g/dL (31.0-37.0); MCV 93.5 fL (80.0-100.0); MEAN PLATELET VOLUME 8.4 fL (7.4-10.4); MONOCYTES 8.3 % (2-11); NEUTROPHILS 83.9 % (40-80); PLATELET COUNT 173 10x3/uL (130-400); RBC 2.69 10x6/uL (4.20-6.10); RDW 14.2 % (11.5-14.5)
[2020-08-17 05:14] LABS: WBC 4.9 10x3/uL (4.8-10.8)
[2020-08-17 05:21] LABS: % SATURATION 25 % (15-55); IRON 33 ug/dl (35-150); TOTAL IRON BIND CAPACITY 127 ug/dl (260-445); UNSAT IRON BIND CAPACITY 94 ug/dl (150-375)
[2020-08-17 05:27] LABS: ALBUMIN 3.9 g/dL (3.4-5.0); ANION GAP 11.7 mmol/L (8-16); BILIRUBIN - TOTAL 0.67 mg/dL (0.2-1.3); CALCIUM 8.9 mg/dL (8.5-10.1); CARBON DIOXIDE 29.3 mmol/L (21.0-32.0); CREATININE - SERUM 2.1 mg/dL (0.6-1.3); MAGNESIUM - SERUM 2.2 mg/dL (1.8-2.4); PROTEIN - SERUM 6.7 g/dL (6.4-8.2)
--- NOTE | 2020-08-17 06:50 | NUR ---
CHG BATH GIVEN, LINEN CHANGED, PT REFUSES TO TURN ON SIDE AND HAS A STAGE TWO ULCER ON BOTTOM
--- NOTE | 2020-08-17 19:30 | NUR ---
RECEIVED PATIENT UP IN BEDSIDE CHAIR, AWAKE ALERT AND ORIENTED X 4. ASSESSMENT COMPLETED WITH NO ACUTE DISTRESS OBSERVED. PATIENT REPORTS BREATHING EASIER AND IS READY TO RETURN TO REHAB. VSS. NSR ON MONITOR. CALL LIGHT IN EASY REACH AND ABLE TO UTILIZE TO MAKE NEEDS KNOWN.
[2020-08-18] VITALS (24 sets, daily range): BP systolic 124–151; BP diastolic 57–88
[2020-08-18 04:39] LABS: BASOPHILS 0 % (0-2); EOSINOPHILS 0 % (0-7); HEMATOCRIT 25.3 % (42.0-54.0); HEMOGLOBIN 8.3 g/dL (13.5-17.5); LYMPHOCYTES 6.6 % (15-50); MCH 30.7 pg (26.0-34.0); MCV 93.1 fL (80.0-100.0); MEAN PLATELET VOLUME 8.4 fL (7.4-10.4); NEUTROPHILS 84.4 % (40-80); RBC 2.72 10x6/uL (4.20-6.10); RDW 14.3 % (11.5-14.5)
[2020-08-18 04:49] LABS: PLATELET COUNT 222 10x3/uL (130-400); WBC 6.5 10x3/uL (4.8-10.8)
[2020-08-18 04:55] LABS: ALBUMIN 3.8 g/dL (3.4-5.0); ANION GAP 14.5 mmol/L (8-16); BILIRUBIN - TOTAL 0.48 mg/dL (0.2-1.3); CARBON DIOXIDE 28.5 mmol/L (21.0-32.0); CREATININE - SERUM 2.1 mg/dL (0.6-1.3); MAGNESIUM - SERUM 2.1 mg/dL (1.8-2.4); PROTEIN - SERUM 6.6 g/dL (6.4-8.2)
--- NOTE | 2020-08-18 07:30 | NUR ---
SLEEPING WITH HOME CPAP ON. NOT WAKEN. RESP DEEP AND REGULAR NO DISTRESS
--- NOTE | 2020-08-18 09:00 | NUR ---
AWAKE WITH STIMULATION. HOME CPAP REMOVED. WITH GREAT AMOUNT OF TIME PATIENT UP TO CHAIR. STANDS FAIRLY WELL. DOES NOT WANT TO WALK. PULSE OX 83% WHEN SITTING UP ON SIDE OF BED. NEEDS HELP TO MOVE LEGS OFF BED. OXYGEN UP TO 4 LITERS . WILL WEAN PULSE INCREASES. BREAKFAST SERVED
--- NOTE | 2020-08-18 14:50 | EC ---
PATIENT:LEONIDES LASSITER DATE OF SERVICE: 08/16/20 SEX: M MEDICAL RECORD: [id number] DATE OF : 49 LOCATION:[facility] AGE OF PATIENT: 75 ADMISSION DATE: 08/16/20 REFERRING PHYSICIAN: INTERPRETING PHYSICIAN: SIRI MICHELE MD ECHOCARDIOGRAM REPORT ECHO CHARGES 4 ECHO COMPLETE Date: 08/16/20 CLINICAL DIAGNOSIS: SOB ECHOCARDIOGRAPHIC MEASUREMENTS (adult normal given) AC root (d.<3.7cm) 3.1 cm LV Septum d (<1.2 cm> 1.3 cm Valve Excursion 1.3 cm LV Septum (systole) 2.0 cm Left Atria (s.<4.0cm> 4.5 cm LVPW d(<1.2cm) 0.9 cm RV (d.<2.3cm) 3.0 cm LVPW (sytole) 1.4 cm LV diastole(<5.6CM) 6.6 cm MV E-F(>70mm/sec) cm LV systole 4.5 cm LVOT Diameter 1.9 cm MV exc.(>10mm) 1.6 cm Est.ejection fraction (50-75%) % DOPPLER: LVIT cm/sec A 54 cm/sec E 78 cm/sec LA cm/sec RVSP 16 mmHg LVOT 82 cm/sec AOP1/2T m/s Asc. Ao 112 cm/sec RVOT 64 cm/sec RA cm/sec PA 78 cm/sec AV Gradient Peak 5.0 mmHg AV Mean 3.0 mmHg AV Area 1.8 cm MV Gradient Peak mmHg MV Mean mmHg MV Area cm COMMENTS: Java Project Manager: Mandeep JONES Sales And Marketing Vice President: 5 Dr. Michele TAPE# Pericardial Effusion N DATE OF SERVICE: CLINICAL INDICATION: Shortness of breath. INTERPRETATION: Dilated left ventricular chamber with mild concentric left ventricular hypertrophy and normal LV contractile function with ejection fraction of 55% to 60%. Left atrial chamber is mildly dilated. Right atrium and right ventricular chamber size and function appears normal. Mild thickening and calcification of the aortic valve with good cusp excursion. Trivial aortic regurgitation. Mitral valve appears normal. No mitral regurgitation. ECHOCARDIOGRAM REPORT [id number] LEONIDES LASSITER Tricuspid valve appears normal. Trace tricuspid regurgitation. Pulmonary valve appears normal. No pulmonary regurgitation. No pericardial effusion is visualized. IMPRESSION: Mild dilated left ventricular chamber with mild concentric left ventricular hypertrophy and normal contractile function with an ejection fraction of 55% to 60%. TRANSINT:[id number] Voice Confirmation ID: [id number] DOCUMENT ID: [id number] SIRI MICHELE MD at 1450 CC: [id number] DICTATION DATE: 08/17/201741 ALL SOURCE INTELLIGENCE TECHNICIAN: 08/17/201942 ADM IN [facility] [address] [place] [id number]
--- NOTE | 2020-08-18 14:51 | NUR ---
PATIENT UP IN CHAIR THIS AM, AMBULATED IN UNIT PER PHYSICAL THERAPY. PATIENT RESISTANT TO CARE. RETURNED TO BED FOR PELVIC X-RAY. POOR APPETITE DOES NOT LIKE HOSPITAL FOOD. COMPLIANTS CONTINOUSLY CONDOM CATH REPLACED NEEDED. IV PATENT RIGHT FOREARM SALINE LOCK FLUSHED WITHOUT DIFFICULTY
--- NOTE | 2020-08-18 17:55 | NUR ---
PATIENT DESATS WITH MINIMAL EXERTION TURNING FROM SIDE TO SIDE. ETC. RAW BETWEEN LEGS. EXTERNAL CONDOM ENRIQUEZ CATH REPLACE A FEW TIMES TODAY. CALMSEPTIN APPLIED TO RAW AREAS. ENCOURAGE TO MOVE EXTREMITITES MUCH POSSIBLE. STATES IT IS PAINFUL TO MOVE.
[2020-08-19] VITALS (23 sets, daily range): BP systolic 114–164; BP diastolic 45–80
[2020-08-19 05:10] LABS: BASOPHILS 0.1 % (0-2); EOSINOPHILS 0 % (0-7); HEMATOCRIT 26.6 % (42.0-54.0); HEMOGLOBIN 8.9 g/dL (13.5-17.5); MCH 31.3 pg (26.0-34.0); MCHC 33.6 g/dL (31.0-37.0); MCV 93.3 fL (80.0-100.0); MEAN PLATELET VOLUME 8.1 fL (7.4-10.4); MONOCYTES 10.7 % (2-11); NEUTROPHILS 82.2 % (40-80); PLATELET COUNT 252 10x3/uL (130-400); RBC 2.85 10x6/uL (4.20-6.10); RDW 14.3 % (11.5-14.5); WBC 5.5 10x3/uL (4.8-10.8)
[2020-08-19 05:30] LABS: ALBUMIN 3.9 g/dL (3.4-5.0); ANION GAP 14.2 mmol/L (8-16); BILIRUBIN - TOTAL 0.61 mg/dL (0.2-1.3); CALCIUM 9.3 mg/dL (8.5-10.1); CARBON DIOXIDE 29.7 mmol/L (21.0-32.0); CREATININE - SERUM 2.1 mg/dL (0.6-1.3); MAGNESIUM - SERUM 2.2 mg/dL (1.8-2.4); POTASSIUM - SERUM 3.9 mmol/L (3.5-5.1); PROTEIN - SERUM 6.9 g/dL (6.4-8.2)
--- NOTE | 2020-08-19 07:30 | NUR ---
REPORT RECEIVED. ASSESSMENT COPLETE PER FLOW SHEET. [facility]
--- NOTE | 2020-08-19 12:52 | NUR ---
Nutrition follow-up: Diet order: low sodium PO intake ~75% average of some meals Labs reviewed Wt: 211# Pt with SOB at times PO intake fair to good at most meals RDN follow-up: 08/21/20
--- NOTE | 2020-08-19 16:45 | NUR ---
THANK YOU FOR THIS REFERRAL. SCREEN IS IN PROGRESS- SHARA LANGLEY LPN, CLINICAL LIAISON
--- NOTE | 2020-08-19 20:01 | NUR ---
BERNICE PERDOMO PAGED FOR INCREASED PAIN. ORDERS FOR PAIN MEDS GIVEN
[2020-08-20] VITALS (17 sets, daily range): BP systolic 99–152; BP diastolic 54–81
[2020-08-20 05:09] LABS: BASOPHILS 0.1 % (0-2); EOSINOPHILS 0 % (0-7); HEMATOCRIT 25.6 % (42.0-54.0); HEMOGLOBIN 8.7 g/dL (13.5-17.5); LYMPHOCYTES 6.5 % (15-50); MCH 31.4 pg (26.0-34.0); MCV 92.3 fL (80.0-100.0); MEAN PLATELET VOLUME 8.3 fL (7.4-10.4); MONOCYTES 14.3 % (2-11); NEUTROPHILS 79.1 % (40-80); PLATELET COUNT 262 10x3/uL (130-400); RBC 2.77 10x6/uL (4.20-6.10); RDW 13.9 % (11.5-14.5); WBC 6.5 10x3/uL (4.8-10.8)
[2020-08-20 05:38] LABS: ALBUMIN 3.6 g/dL (3.4-5.0); ANION GAP 12.1 mmol/L (8-16); BILIRUBIN - TOTAL 0.43 mg/dL (0.2-1.3); CALCIUM 8.8 mg/dL (8.5-10.1); CARBON DIOXIDE 31.6 mmol/L (21.0-32.0); CREATININE - SERUM 1.9 mg/dL (0.6-1.3); POTASSIUM - SERUM 3.7 mmol/L (3.5-5.1); PROTEIN - SERUM 6.6 g/dL (6.4-8.2)
--- NOTE | 2020-08-20 17:01 | NUR ---
THANK YOU FOR THIS REFERRAL. PATIENT IN SCREENING PROCESS. COULD NOT BE ADMITTED TODAY DUE TO THORACENTESIS. WILL CHECK FOR MEDICAL STABILITY IN THE AM. -SHARA LANGLEY LPN, CLINICAL LIAISON
[2020-08-20 18:07] LABS: MACROPHAGES BF 6 %; MESOTHELIALS BF 21 %; NEUT - BF 15 %
[2020-08-21 04:00] VITALS: BP 103/64
[2020-08-21 06:18] LABS: BASOPHILS 0 % (0-2); EOSINOPHILS 0 % (0-7); HEMATOCRIT 29.1 % (42.0-54.0); HEMOGLOBIN 9.7 g/dL (13.5-17.5); LYMPHOCYTES 5.7 % (15-50); MCH 31.1 pg (26.0-34.0); MCHC 33.4 g/dL (31.0-37.0); MCV 93.1 fL (80.0-100.0); MEAN PLATELET VOLUME 7.9 fL (7.4-10.4); MONOCYTES 7.2 % (2-11); NEUTROPHILS 87.1 % (40-80); PLATELET COUNT 268 10x3/uL (130-400); RBC 3.12 10x6/uL (4.20-6.10); RDW 14.4 % (11.5-14.5); WBC 6.4 10x3/uL (4.8-10.8)
[2020-08-21 06:45] LABS: ALBUMIN 3.5 g/dL (3.4-5.0); ANION GAP 11.6 mmol/L (8-16); BILIRUBIN - TOTAL 0.6 mg/dL (0.2-1.3); CALCIUM 8.6 mg/dL (8.5-10.1); CARBON DIOXIDE 30.4 mmol/L (21.0-32.0); CREATININE - SERUM 1.8 mg/dL (0.6-1.3); MAGNESIUM - SERUM 2.1 mg/dL (1.8-2.4); PROTEIN - SERUM 6.5 g/dL (6.4-8.2)
--- NOTE | 2020-08-21 06:47 | NUR ---
PATIENT HAD FAMILY AT BEDSIDE, HE RESTED WELL ALL NEEDS MET, HE IS CURRENTLY RESTING IN BED WITH HIS EYES CLOSED.
[2020-08-21 08:23] VITALS: BP 131/48
--- NOTE | 2020-08-21 09:16 | NUR ---
ASSESSMENT PER FLOW SHEET. PATIENT IS WITHOUT DISTRESS.VERY ANXIOUS WANTS TO GO TO REHAB TODAY. HE IS WITHOUT DISTRESS.FALL PREVENTION WITH EVERETTE MAT. PATIENT DECLINES TO TAKE MEDS TILL AFTER HE EATS.MEDS LOCKED IN PATIENT CASSETTE,EXCEPT KLONOPIN AND PATIENT TOOK THAT MED. CALL LIGHT IN REACH
--- NOTE | 2020-08-21 10:29 | OP ---
PATIENT NAME: LEONIDES LASSITER MEDICAL RECORD: [id number] :47 LOCATION:[facility] ADMISSION DATE:08/16/20 SURGEON: ZACH RUHS MD DATE OF OPERATION: 08/20/2020 SURGEON: Zach Rush MD PROCEDURE PERFORMED: Right ultrasound-guided thoracentesis. INDICATION: Right pleural effusion. DESCRIPTION OF PROCEDURE: With the patient seated upright in the intensive care unit and with the heart rate, blood pressure, and pulse oximetry monitored and nasal cannula oxygen infusing, ultrasound was used to obtain a window for aspiration. The chest was prepped and draped. A 1% Xylocaine was used for local anesthetic and a small needle was used to enter the pleural cavity where serous fluid was removed. A small skin incision was made. Catheter was introduced over the superior surface of the rib and into the pleural cavity and connected to vacuum suction where a total of 1500 cc of serous fluid was removed without apparent complication. Ultrasound revealed complete resolution. Chest x-ray pending. TRANSINT:[id number] Voice Confirmation ID: [id number] DOCUMENT ID: [id number] ZACH RUSH MD at 1029 CC: PHANI DIAZ MD [id number] DICTATION DATE: 08/20/20 1106 POLICE DISPATCHER: 08/21/20 0257 ADM IN [facility] [address] [place] [id number]
[2020-08-21] MEDS ORDERED: ALBUTEROL2.5 MG/3 M INH (11:25)
[2020-08-21] MEDS ORDERED: PERFOROMIS20 MCG/21 UPD (11:25)
[2020-08-21] MEDS ORDERED: ATIVAN1 MG PO (11:26)
[2020-08-21] MEDS ORDERED: IPRAT-ALBUT 0.5-3 ML INH (11:26)
[2020-08-21] MEDS ORDERED: ACETAMINOPHEN325 MG PO (11:26)
[2020-08-21] MEDS ORDERED: PROCARDIA XL PO (11:26)
[2020-08-21] MEDS ORDERED: KLONOPIN0.5 MG PO (11:26)
[2020-08-21] MEDS ORDERED: LEXAPRO10 MG PO (11:26)
[2020-08-21] MEDS ORDERED: PERCOCET 5-3251 TAB PO (11:26)
[2020-08-21] MEDS ORDERED: FLUTICASONE PRO16 GM NASAL (11:27)
[2020-08-21] MEDS ORDERED: HALOPERIDOL1 MG PO (11:27)
[2020-08-21] MEDS ORDERED: PULMICORT0.5 MG/21 INH (11:27)
[2020-08-21] MEDS ORDERED: K-DUR20 MEQ PO (11:27)
[2020-08-21] MEDS ORDERED: BUMEX 1 MG/1 MG/4 ML IV (11:27)
[2020-08-21] MEDS ORDERED: MUCINEX600 MG PO (11:27)
[2020-08-21] MEDS ORDERED: PROTONIX40 MG PO (11:27)
[2020-08-21] MEDS ORDERED: MIRALAX17 GM PO (11:28)
[2020-08-21] MEDS ORDERED: CALMOSEPTINE OI71 GM TOPICAL (11:28)
[2020-08-21 12:09] VITALS: BP 131/59
[2020-08-21 13:12] LABS: FUNGUS STAIN Final report (())
--- NOTE | 2020-08-21 14:30 | MORECARE ---
CASE MANAGEMENT DISCHARGE SUMMARY PATIENT: LEONIDES LASSITER UNIT: [id number] ADM DATE: 08/16/20 AGE: 75 : 47 SEX: M ROOM/BED: D.2219 AUTHOR: SOHAIL PLUMMER PHYSICIAN: REFERRING PHYSICIAN: MARY ARCOS MD DATE OF SERVICE: 08/21/20 Case Management Discharge Planning Summary DCP REVIEW SUMMARY ANTICIPATED D/C DATE: EXPECTED LOS : CASE STATUS: DCP Initiated INITIAL REVIEW: 08/16/2020 INITIAL REVIEWER: Eulalia Craig FINAL DISCHARGE DISPOSITION: : FINAL REVIEWER: FINAL REVIEW DATE: DCP Focus Questions & Answers QUESTION: ANSWER : PATIENT: LEONIDES LASSITER ENCOUNTER: [id number] MEDICAL RECORD#: [id number] ADMISSION DATE: 08/16/2020 DISCHARGE DATE: ATTENDING MD: MARY MEYER : AGE: 75 MARITAL STATUS: M DC PLAN ID: [id number] FACILITY: [facility] PRINTED ON: 08/21/20 14:30 CT All edits/amendments must be made on the electronic document DICTATION DATE: 08/21/201429 PHYSICAL THERAPIST AIDE: DM 08/21/20 143 RPT#: [id number] DC DATE: STATUS: ADM IN [facility] [address] [place] [address] END OF REPORT
--- NOTE | 2020-08-21 14:43 | MORECARE ---
CASE MANAGEMENT DISCHARGE SUMMARY PATIENT: LEONIDES LASSITER UNIT: [id number] ADM DATE: 08/16/20 AGE: 75 : 47 SEX: M ROOM/BED: D.2219 AUTHOR: KAVITHA,DOC PHYSICIAN: REFERRING PHYSICIAN: MARY ARCOS MD DATE OF SERVICE: 08/21/20 Case Management Discharge Planning Summary COMMENTS ENTERED DATE: 08/21/20 14:27 CT COMMENT TYPE: Discharge Planning REVIEWER: Eulalia Craig CM spoke with patient about DC planning, Patient stated he was ready to go to inpatient rehab today at [facility]. He lives at home and his son live with him. His PCP is Dr Mcgraw and he uses [facility] in [place]. He has a CPAP machine from [facility]. He has a rollator walker at home. IMM served and explained KYLE also signed. CM to follow as needed DCP REVIEW SUMMARY ANTICIPATED D/C DATE: EXPECTED LOS : CASE STATUS: DCP Initiated INITIAL REVIEW: 08/16/2020 INITIAL REVIEWER: Eulalia Craig FINAL DISCHARGE DISPOSITION: : FINAL REVIEWER: FINAL REVIEW DATE: DCP Focus Questions & Answers QUESTION: ANSWER : PATIENT: LEONIDES LASSITER ENCOUNTER: [id number] MEDICAL RECORD#: [id number] ADMISSION DATE: 08/16/2020 DISCHARGE DATE: ATTENDING MD: MARY MEYER : AGE: 75 MARITAL STATUS: M DC PLAN ID: [id number] FACILITY: [facility] PRINTED ON: 08/21/20 14:43 CT All edits/amendments must be made on the electronic document DICTATION DATE: 08/21/201442 HEEL SEWER: IMANI 08/21/201442 RPT#: [id number] DC DATE: STATUS: ADM IN [facility] [address] [place] [address] END OF REPORT
--- NOTE | 2020-08-21 15:22 | PN ---
PATIENT:LEONIDES LASSITER MEDICAL RECORD: [id number] LOCATION:[facility] ADMISSION DATE: 08/16/20 PROGRESS NOTE DATE OF SERVICE: 08/19/2020 SUBJECTIVE: The patient's case was discussed with staff. He has no new complaint. OBJECTIVE: The patient has some depressed symptoms, but no thoughts of harming himself or others. He has poor insight about his situation. ASSESSMENT: 1. Major depression. 2. Anxiety. PLAN: Current medicines have been reviewed and will be maintained. Long-term prognosis is guarded. TRANSINT:[id number] Voice Confirmation ID: [id number] DOCUMENT ID: [id number] MELLISSA SINGH MD at 1522 CC: [id number] DICTATION DATE: 08/19/20 1700 COLOR PRINTER OPERATOR: 08/21/20 0100 ADM IN [facility] [address] [place] [id number]
[2020-08-21 16:10] LABS: ACID FAST SMEAR Negative (()); AFB SPECIMEN PROCESSING Not Indicated (())
[2020-08-21 17:02] VITALS: BP 127/40
--- NOTE | 2020-08-21 17:33 | NUR ---
PATIENT ACCEPTED. ASSIGNED TO [facility] 1110. NOTIFIED ADAMARIS ON MED SURG AND HOUSE AMARILIS MUJICA.-SHARA LANGLEY LPN, CLINICAL LIAISON
--- NOTE | 2020-08-21 18:19 | NUR ---
CALL TO KENIA SHE WAS INFORMED OF TRANSPORT TO REHAB, ROOM 1109.
--- NOTE | 2020-08-21 18:28 | MORECARE ---
CASE MANAGEMENT DISCHARGE SUMMARY PATIENT: LEONIDES LASSITER UNIT: [id number] ADM DATE: 08/16/20 AGE: 75 : 47 SEX: M ROOM/BED: D.2219 AUTHOR: KAVITHA,DOC PHYSICIAN: REFERRING PHYSICIAN: MARY ARCOS MD DATE OF SERVICE: 08/21/20 Case Management Discharge Planning Summary COMMENTS ENTERED DATE: 08/21/20 14:27 CT COMMENT TYPE: Discharge Planning REVIEWER: Eulalia Craig CM spoke with patient about DC planning, Patient stated he was ready to go to inpatient rehab today at [facility]. He lives at home and his son live with him. His PCP is Dr Mcgraw and he uses [facility] in [place]. He has a CPAP machine from [facility]. He has a rollator walker at home. IMM served and explained KYLE also signed. CM to follow as needed DCP REVIEW SUMMARY ANTICIPATED D/C DATE: EXPECTED LOS : CASE STATUS: DCP Initiated INITIAL REVIEW: 08/16/2020 INITIAL REVIEWER: Eulalia Craig FINAL DISCHARGE DISPOSITION: : FINAL REVIEWER: FINAL REVIEW DATE: DCP Focus Questions & Answers QUESTION: ANSWER : PATIENT: LEONIDES LASSITER ENCOUNTER: [id number] MEDICAL RECORD#: [id number] ADMISSION DATE: 08/16/2020 DISCHARGE DATE: 08/21/2020 ATTENDING MD: MARY MEYER : AGE: 75 MARITAL STATUS: M DC PLAN ID: [id number] FACILITY: [facility] PRINTED ON: 08/21/20 18:28 CT All edits/amendments must be made on the electronic document DICTATION DATE: 08/21/201827 EXTERNAL RELATIONS MANAGER: IMANI 08/21/201827 RPT#: [id number] DC DATE:08/21/20 STATUS: DIS IN [facility] [address] [place] [address] END OF REPORT
--- NOTE | 2020-08-22 10:34 | MORECARE ---
CASE MANAGEMENT DISCHARGE SUMMARY PATIENT: LEONIDES LASSITER UNIT: [id number] ADM DATE: 08/16/20 AGE: 75 : 47 SEX: M ROOM/BED: D.2219 AUTHOR: KAVITHA,DOC PHYSICIAN: REFERRING PHYSICIAN: MARY ARCOS MD DATE OF SERVICE: 08/22/20 Case Management Discharge Planning Summary COMMENTS ENTERED DATE: 08/21/20 14:27 CT COMMENT TYPE: Discharge Planning REVIEWER: Eulalia Craig CM spoke with patient about DC planning, Patient stated he was ready to go to inpatient rehab today at [facility]. He lives at home and his son live with him. His PCP is Dr Mcgraw and he uses [facility] in [place]. He has a CPAP machine from [facility]. He has a rollator walker at home. IMM served and explained KYLE also signed. CM to follow as needed DCP REVIEW SUMMARY ANTICIPATED D/C DATE: EXPECTED LOS : 0 CASE STATUS: DCP Complete INITIAL REVIEW: 08/16/2020 INITIAL REVIEWER: Eulalia Craig FINAL DISCHARGE DISPOSITION: 62 : Discharged/Trans to IP Rehab Facility Including Distinct Units of a Hospital FINAL REVIEWER: Eulalia Craig FINAL REVIEW DATE: 08/22/2020 DCP Focus Questions & Answers QUESTION: ANSWER : PATIENT: LEONIDES LASSITER ENCOUNTER: [id number] MEDICAL RECORD#: [id number] ADMISSION DATE: 08/16/2020 DISCHARGE DATE: 08/21/2020 ATTENDING MD: MARY MEYER : AGE: 75 MARITAL STATUS: M DC PLAN ID: [id number] FACILITY: [facility] PRINTED ON: 08/22/20 10:33 CT All edits/amendments must be made on the electronic document DICTATION DATE: 08/22/20 1033 STOCK COUNTER: IMANI 08/22/20 1033 RPT#: [id number] DC DATE:08/21/20 STATUS: DIS IN [place] [id number] [place] [address] END OF REPORT
== END 2020-08-21 18:21 | DRG 189 ==
LOC: D.ICU 02:05 → D.MS 08-20 16:50
PROVIDERS: Internal Medicine; Internal Medicine Pulmonary Disease; ADMIT Family Medicine; ATTEND Family Medicine
PROC: 0W993ZZ Drainage of Right Pleural Cavity, Percutaneous Approach (ICD-10-PCS; principal; 2020-08-20)
DX: J96.01 Acute respiratory failure with hypoxia (principal); J81.0 Acute pulmonary edema; N17.0 Acute kidney failure with tubular necrosis; J44.1 Chronic obstructive pulmonary disease with (acute) exacerbation; J90 Pleural effusion, not elsewhere classified; M87.9 Osteonecrosis, unspecified; I70.209 Unspecified atherosclerosis of native arteries of extremities, unspecified extremity; F41.9 Anxiety disorder, unspecified; D64.9 Anemia, unspecified; G47.33 Obstructive sleep apnea (adult) (pediatric); E78.5 Hyperlipidemia, unspecified; Z95.0 Presence of cardiac pacemaker; I10 Essential (primary) hypertension; I16.0 Hypertensive urgency

== ENCOUNTER 2020-08-21 17:54 | Inpatient (IN) | payer MEDICARE, BC ==
[~2020-08-21] VITALS: Ht 177.8 cm; Wt 91.6 kg
[~2020-08-21 17:54] MED LIST changes: +ACETAMINOPHEN325 MG PO; +ALBUTEROL2.5 MG/3 M INH; +ATIVAN1 MG PO; +BUMEX 1 MG/1 MG/4 ML IV; +CALMOSEPTINE OI71 GM TOPICAL; +FLUTICASONE PRO16 GM NASAL; +HALOPERIDOL1 MG PO; +IPRAT-ALBUT 0.5-3 ML INH; +K-DUR20 MEQ PO; +KLONOPIN0.5 MG PO; +LEXAPRO10 MG PO; +MIRALAX17 GM PO; +MUCINEX600 MG PO; +PERCOCET 5-3251 TAB PO; +PERFOROMIS20 MCG/21 UPD; +PROCARDIA XL PO; +PROTONIX40 MG PO; +PULMICORT0.5 MG/21 INH
--- NOTE | 2020-08-21 18:25 | NUR ---
RECIEVED FROM ACUTE CARE FLOOR.CL IN REACH.ORIENTED TO ROOM AND SURROUNDINGS.
--- NOTE | 2020-08-21 19:00 | NUR ---
ROUNDS MADE, INFORMED PT THAT I WILL BE BACK SHORTLY TO DO ASSESSMENT, PT VERBALIZES UNDERSTANDING, DENIES NEEDS AT THIS TIME
[2020-08-21 19:55] VITALS: BP 140/56
--- NOTE | 2020-08-21 21:45 | NUR ---
WENT OVER PAPERWORK WITH PT, PT SIGNED, QUESTIONS ANSWERED
--- NOTE | 2020-08-21 21:53 | NUR ---
ADM 2100 MEDS PER MD ORDERS, SEE EMAR
--- NOTE | 2020-08-21 22:19 | NUR ---
ADMISSION ASSESSMENT AND HISTORY INITIATED
[2020-08-21 22:30] VITALS: BP 140/56; BMI 29.1
--- NOTE | 2020-08-21 23:15 | NUR ---
ADMISSION ASSESSMENT AND HISTORY COMPLETED, SHAHRAM FUNK RN IN ROOM, SETS UP TRILOGY FOR PT, PT SERVED ICE CREAM, AND WARM BLANKET PROVIDED, PT DENIES FURTHER NEEDS
--- NOTE | 2020-08-22 00:21 | NUR ---
PT RESTING WITH EYES CLOSED, RESP QUIET, NO DISTRESS NOTED, LEFT UNDISTURBED AT THIS TIME
--- NOTE | 2020-08-22 02:25 | NUR ---
PT RESTING WITH EYES CLOSED, RESP QUIET, NO DISTRESS NOTED, LEFT UNDISTURBED AT THIS TIME
--- NOTE | 2020-08-22 05:05 | NUR ---
PT DISPENSARY TECHNICIAN LIGHT, PT UP TO BR PER THIS RN AND SHAHRAM FUNK, RN, MEPILEX REMOVED, PRESSURE ULCERS NOTED AND STAGED PER SHAHRAM FUNK RN, PT VOIDED WITH NO DIFFICULTY, NEW MEPILEX PLACED, PT BACK TO BED, REPOSITIONED TO RIGHT SIDE WITH PILLOW BEHIND BACK FOR COMFORT AND SUPPORT, FRESH H20 SERVED, PT TRANSFERRED WELL VIA WC, PT DENIES FURTHER NEEDS
[2020-08-22 06:03] LABS: BASOPHILS 0.2 % (0-2); EOSINOPHILS 1.7 % (0-7); HEMATOCRIT 29.8 % (42.0-54.0); HEMOGLOBIN 9.9 g/dL (13.5-17.5); LYMPHOCYTES 14.5 % (15-50); MCH 30.9 pg (26.0-34.0); MCHC 33.2 g/dL (31.0-37.0); MCV 92.9 fL (80.0-100.0); MEAN PLATELET VOLUME 7.2 fL (7.4-10.4); MONOCYTES 11.9 % (2-11); NEUTROPHILS 71.7 % (40-80); PLATELET COUNT 295 10x3/uL (130-400); RBC 3.21 10x6/uL (4.20-6.10); RDW 14.2 % (11.5-14.5)
[2020-08-22 06:17] LABS: ANION GAP 8.4 mmol/L (8-16); CALCIUM 8.7 mg/dL (8.5-10.1); CARBON DIOXIDE 34.7 mmol/L (21.0-32.0); CREATININE - SERUM 1.7 mg/dL (0.6-1.3); POTASSIUM - SERUM 4.1 mmol/L (3.5-5.1)
--- NOTE | 2020-08-22 06:18 | NUR ---
PT AWAKE, WATCHING TV, FLUSHED SALINE LOCK, ADM BUMEX, FLUSHED SALINE LOCK, ADM PROTONIX PO PER MD ORDERS, SEE EMAR, PT REQUESTED AND PROVIDED "SPIT BASIN", SCD'S ON AND WORKING PROPERLY, PT DENIES FURTHER NEEDS
[2020-08-22 06:28] LABS: WBC 8.2 10x3/uL (4.8-10.8)
[2020-08-22 07:24] VITALS: BP 131/51
--- NOTE | 2020-08-22 07:26 | NUR ---
PT RESTING IN BED WITH EYES OPEN CALL LIGHT IN REACH WILL MONITER
[2020-08-22 14:42] VITALS: BMI 28.9
--- NOTE | 2020-08-22 18:36 | NUR ---
PT RESTING IN BED WITH EYES OPEN CALL LIGHT IN REACH WILL MONITER
[2020-08-22 20:02] VITALS: BP 140/56
--- NOTE | 2020-08-23 01:23 | NUR ---
AT PTS REQUEST, ASSISTED HIM WITH HIS CPAP AND WITH THE URINAL. HE VOIDED 200ML OF YELLOW URINE. HE STARTED COUGHING WHEN HE PUT THE CPAP ON HIM. IT WAS NON PRODUCTIVE. HE IS SHORT OF BREATH. O2 SAT IS 96%. HE IS REQUESTING AN UPDRAFT. CALLED RT, MANJINDER IS NOW IN HIS ROOM GIVING HIM THE PRN UPDRAFT. SHORTNESS OF BREATH IMPROVED. BED IS LOW, BED ALARM ON AND CALL LIGHT IS WITHIN REACH.
[2020-08-23 07:00] LABS: BASOPHILS 0.1 % (0-2); HEMATOCRIT 29.2 % (42.0-54.0); HEMOGLOBIN 9.7 g/dL (13.5-17.5); LYMPHOCYTES 13.8 % (15-50); MCH 30.9 pg (26.0-34.0); MCHC 33.3 g/dL (31.0-37.0); MCV 92.8 fL (80.0-100.0); MEAN PLATELET VOLUME 7.7 fL (7.4-10.4); MONOCYTES 11.3 % (2-11); NEUTROPHILS 70.8 % (40-80); PLATELET COUNT 256 10x3/uL (130-400); RBC 3.14 10x6/uL (4.20-6.10); RDW 14.3 % (11.5-14.5)
[2020-08-23 07:15] LABS: ANION GAP 10.8 mmol/L (8-16); CALCIUM 8.4 mg/dL (8.5-10.1); CARBON DIOXIDE 32.1 mmol/L (21.0-32.0); CREATININE - SERUM 1.9 mg/dL (0.6-1.3); POTASSIUM - SERUM 3.9 mmol/L (3.5-5.1)
[2020-08-23 08:00] VITALS: BP 124/55
--- NOTE | 2020-08-23 08:00 | NUR ---
PT RESTING IN WHEELCHAIR IN ROOM CALL LIGHT IN REACH WILL MONITER
--- NOTE | 2020-08-23 11:21 | NUR ---
PATIENT ADMITTED TO REHAB FROM ACUTE FLOOR. HIS PCP IS DR. DREA YAÑEZ. DME AT HOME IS A C-PAP AND A ROLLING WALKER FROM [facility] PATIENT. DISCHARGE PLANS ARE TO RETURN HOME WITH HIS FAMILY. WILL CONTINUE TO FOLLOW WITH PATIENT.
--- NOTE | 2020-08-23 17:50 | NUR ---
PT RESTING IN BED WITH EYES OPEN CALL LIGHT IN REACH NO PROBLEMS WILL MONITER
[2020-08-23 19:40] VITALS: BP 139/53
--- NOTE | 2020-08-23 20:00 | NUR ---
PATIENT RECEIVED SITTING UP IN BED. ASSESSMENT & VITAL SIGNS D0NE. 02 @ 3LNC CONTINUES. NO C/O PAIN OR DISTRESS AT THIS TIME. BED LOW. ALARM ON. CALL LIGHT WITHIN REACH. WILL CONTINUE TO MONITOR.
--- NOTE | 2020-08-24 01:24 | NUR ---
I have reviewed this patient and I concur with the Shift Assessment completed by the Licensed Practical Nurse today this shift.
--- NOTE | 2020-08-24 01:57 | NUR ---
PATIENT EYES CLOSED. RESPIRATIONS 18 & EVEN. BED LOW. CALL LIGHT WITHIN REACH. ALARM ON. WILL CONTINUE TO MONITOR.
[2020-08-24 05:56] VITALS: BP 123/81
[2020-08-24 07:00] VITALS: BP 141/52
--- NOTE | 2020-08-24 08:44 | NUR ---
HE IS SETTING UP IN THE WHEELCHAIR FOR BREAKFAST. HE TOOK HIS MEDICATIONS SLOWLY. HE IS WEARING 3 LITERS NC. HE HAS BREAKDOWN ON HIS BOTTOM, NATHANIEL APPLIED. HE USED THE THE BATHROOM WITH MYSELF AND PT. HE IS WORKING WITH PT.
--- NOTE | 2020-08-24 16:08 | NUR ---
I EDUCATED HIM ABOUT TURNING EVERY 2 HOURS, WE PUT PILLOWS TO TURN HIM AND HE MOVED BACK TO HIS BOTTOM.
[2020-08-24 19:00] VITALS: BP 110/47
--- NOTE | 2020-08-24 19:20 | NUR ---
PATIENT RECEIVED SITTING UP IN BED. ASSESSMENT & VITAL SIGNS DONE. NO C/O PAIN OR DISTRESS AT THIS TIME. PATIENT TURNED OFF HIS LEFT SIDE WITH PILLOW. BED LOW. O2@ 3LNC CONTINUES. ALARM ON. CALL LIGHT WITHIN REACH. WILL CONTINUE TO MONITOR.
--- NOTE | 2020-08-25 05:18 | NUR ---
I have reviewed this patient and I concur with the Shift Assessment completed by the Licensed Practical Nurse today this shift.
[2020-08-25 07:00] VITALS: BP 120/60
--- NOTE | 2020-08-25 08:55 | NUR ---
HE IS SETTING UP IN THE WHEELCHAIR FOR BREAKFAST. WEARING 3 LITERS NC. HE C/O HIS BOTTOM IS HURTING. I EDUCATED HIM ABOUT REPOSITING, OFF LOADING FROM SIDE TO SIDE EVERY 2 HOURS. HE SAID HE WOULD. THE CALL LIGHT IS WITHIN REACH AND THE BED ALARM IS ON.
--- NOTE | 2020-08-25 19:46 | NUR ---
PATIENT RECEIVED SITTING UP IN BED. ASSESSMENT & VITAL SIGNS DONE. BEDSIDE TABLE & CALL LIGHT WITHIN REACH. ALARM ON. CALL LIGHT WITHIN REACH. WILL CONTINUE TO MONITOR.
[2020-08-25 19:51] VITALS: BP 132/45
--- NOTE | 2020-08-26 02:00 | NUR ---
PATIENT EYES CLOSED. RESPIRATIONS 18 & EVEN. BED LOW. CALL LIGHT & BEDSIDE TABLE WITHIN REACH. WILL CONTINUE TO MONITOR.
--- NOTE | 2020-08-26 04:21 | NUR ---
I have reviewed this patient and I concur with the Shift Assessment completed by the Licensed Practical Nurse today this shift.
[2020-08-26 07:00] VITALS: BP 127/52
--- NOTE | 2020-08-26 08:00 | NUR ---
PT RESTING IN BED WITH EYES OPEN CALL LIGHT IN REACH WILL MONITER
[2020-08-26 11:49] LABS: BASOPHILS 0.3 % (0-2); RBC 3.27 10x6/uL (4.20-6.10)
[2020-08-26 11:51] LABS: EOSINOPHILS 1.8 % (0-7); HEMATOCRIT 30.5 % (42.0-54.0); HEMOGLOBIN 10.2 g/dL (13.5-17.5); LYMPHOCYTES 2.9 % (15-50); MCH 31.1 pg (26.0-34.0); MCHC 33.4 g/dL (31.0-37.0); MCV 93.2 fL (80.0-100.0); MEAN PLATELET VOLUME 7.7 fL (7.4-10.4); MONOCYTES 8.7 % (2-11); NEUTROPHILS 86.3 % (40-80); RDW 14.4 % (11.5-14.5); WBC 11.6 10x3/uL (4.8-10.8)
[2020-08-26 11:53] LABS: PLATELET COUNT 177 10x3/uL (130-400)
[2020-08-26 12:40] LABS: ANION GAP 10.5 mmol/L (8-16); CALCIUM 8.5 mg/dL (8.5-10.1); CARBON DIOXIDE 33.2 mmol/L (21.0-32.0); CREATININE - SERUM 2.3 mg/dL (0.6-1.3); MAGNESIUM - SERUM 2.1 mg/dL (1.8-2.4); PHOSPHOROUS 3.6 mg/dL (2.5-4.9); POTASSIUM - SERUM 3.7 mmol/L (3.5-5.1)
--- NOTE | 2020-08-26 18:39 | NUR ---
PT RESTING IN BED WITH EYES OPEN CALL LIGHT IN REACH WILL MONITER
[2020-08-26 19:45] VITALS: BP 130/64
--- NOTE | 2020-08-26 20:50 | NUR ---
RESPIRATORY THERAPIST IN ROOM GIVING PT HIS SCHEDULED BREATHING TREATMENTS. AFTER TREATMENT O2 SAT IS 88%. HE IS ON 3L HIGH FLOW NASAL CANNULA. O2 INCREASED TO 6L HIGH FLOW NASAL CANNULA. PTS RESPIRATIONS ARE SHALLOW, EVEN AND UNLABORED. PT TALKING AND DENIES INCREASING SHORTNESS OF BREATH. ASSISTED HIM WITH POSITION CHANGE TO HIS RIGHT SIDE. WEDGE PLACED UNDER HIS LEFT SIDE. HE DENIES NEEDS AT THIS TIME. BED ALARM ON, BED LOW AND CALL LIGHT IS WITHIN REACH.
--- NOTE | 2020-08-26 21:30 | NUR ---
PT REQUESTING HELP WITH CPAP. O2 SAT 92% ON 6L NASAL CANNULA. HE DENIES SHORTNESS OF BREATH. HE HAS BEEN COUGHING UP ADAN/WHITE PHLEGM. ASSISTED PT WITH CPAP AND KEPT O2 ON 6L. BED ALARM ON AND CALL LIGHT WITHIN REACH.
[2020-08-27 07:03] LABS: BASOPHILS 0.3 % (0-2); EOSINOPHILS 2.6 % (0-7); HEMATOCRIT 29.6 % (42.0-54.0); HEMOGLOBIN 9.9 g/dL (13.5-17.5); LYMPHOCYTES 10.6 % (15-50); MCH 30.9 pg (26.0-34.0); MCHC 33.3 g/dL (31.0-37.0); MCV 92.7 fL (80.0-100.0); MEAN PLATELET VOLUME 7.9 fL (7.4-10.4); MONOCYTES 17.1 % (2-11); NEUTROPHILS 69.4 % (40-80); PLATELET COUNT 156 10x3/uL (130-400); RBC 3.19 10x6/uL (4.20-6.10); RDW 14.3 % (11.5-14.5)
[2020-08-27 07:05] LABS: WBC 7.7 10x3/uL (4.8-10.8)
[2020-08-27 07:40] LABS: ANION GAP 12.4 mmol/L (8-16); CALCIUM 8.3 mg/dL (8.5-10.1); CARBON DIOXIDE 32.4 mmol/L (21.0-32.0); CREATININE - SERUM 2.1 mg/dL (0.6-1.3); POTASSIUM - SERUM 3.8 mmol/L (3.5-5.1)
[2020-08-27 07:41] VITALS: BP 180/54
--- NOTE | 2020-08-27 08:00 | NUR ---
PT RESTING IN BED WITH EYES OPEN CALL LIGHT IN REACH PT STATES THAT HE FEELS BETTER TODAY. WILL CONTINUE TO MONITER PT
--- NOTE | 2020-08-27 13:00 | NUR ---
THERAPY REPORTING PT HAS MORE ENERGY AND HIGHER PARTICIPATION TODAY. WILL MONITER PT
--- NOTE | 2020-08-27 13:41 | NUR ---
Nutrition Re-Assessment Diet: Cardiac PO intake: ~62% average x last 9 meals. He ate 100% of breakfast meal. He states that his appetite is "a little better." States that he didn't want to eat much of his lunch because there was not much seasoning on it. He does not like being on a cardiac diet. Last BM: 08/24/20 Wt: 202# (08/22/20) Meds noted: bumex, kdur, miralax Labs noted: BUN 44(H), Cr 2.1(H), GFR 33(L), Glu 125(H) Skin: stage II PUs x 3 to left and right buttocks + coccyx Estimated nutrition needs: 1900-2275cal (25-30kcal/kg IBW), 60-80gms protein (0.6-0.8gms/kg), 1900-2275mL fluid (or per MD) Nutrition diagnosis: Altered nutrition related lab values r/t T2DM AEB elevated blood glucose. Nutrition goals: -PO intake =/>75% meals -Meet fluid needs within fluid overload -Stable dry weight -Glucose to trend WNL Recommendations/Interventions: -Recommend continue current diet. Will continue to honor food preferences within diet restrictions. -Will continue to monitor PO intake and wt trend. -RD will follow-up within 7 days.
[2020-08-27 15:47] LABS: COMPLEMENT C4 15.9 mg/dL (17.4-52.2)
--- NOTE | 2020-08-27 17:30 | NUR ---
PT RESTING IN BED WITH EYES OPEN EATING SUPER TOLERATING WELL CALL LIGHT IN REACH NO PROBLEMS WILL MONITER
--- NOTE | 2020-08-27 19:05 | NUR ---
ROUNDS MADE, PT RESTING WITH EYES CLOSED, RESP QUIET, NO DISTRESS NOTED, LEFT UNDISTURBED AT THIS TIME
--- NOTE | 2020-08-27 20:41 | NUR ---
COLLECTED UA PER MD ORDERS, PT CLEANED UP, CALMOSEPTINE APPLIED
[2020-08-27 21:31] VITALS: BP 127/56
--- NOTE | 2020-08-27 22:12 | NUR ---
PT AWAKE, ASSESSMENT PER FLOW SHEET, ADM 2100 MEDS PER MD ORDERS, SEE EMAR, MEPILEX INTACT ON COCCYX, PT READY FOR BED, INFORMED PT THAT I WILL NOTIFY RESP ABOUT TREAMENT, PT VERBALIZES UNDERSTANDING, SCD'S APPLIED AND WORKING PROPERLY, DENIES FURTHER NEEDS
[2020-08-27 22:58] LABS: BILIRUBIN NEGATIVE (NEGATIVE); CREATININE - URINE 71.2 mg/dL (30-125); KETONE NEGATIVE (NEGATIVE); NITRITE NEGATIVE (NEGATIVE); PRO/CRE RATIO URINE 0.5 mg/g; PROTEIN - URINE 38.9 mg/dL (0.0-11.9); UROBILINOGEN NORMAL mg/dL (< 2)
[2020-08-27 22:59] LABS: WHITE CELLS - URINE 0-5 HPF (0-1)
[2020-08-27 23:00] LABS: BACTERIA FEW HPF (NONE SEEN)
--- NOTE | 2020-08-28 00:21 | NUR ---
PT CATERING ATTENDANT LIGHT, ASSISTED WITH URINAL, PT VOIDED 325 MLS OF DARK YELLOW URINE, PT CLEANED UP, CALMOSEPTINE APPLIED, PT DENIES FURTHER NEEDS, FALL PRECAUTION IN PLACE
--- NOTE | 2020-08-28 02:30 | NUR ---
PT RESTING WITH EYES CLOSED, RESP QUIET, NO DISTRESS NOTED, LEFT UNDISTURBED AT THIS TIME, FALL PRECAUTIONS IN PLACE
--- NOTE | 2020-08-28 04:38 | NUR ---
PT RESTING WITH EYES CLOSED, RESP QUIET, NO DISTRESS NOTED, LEFT UNDISTURBED AT THIS TIME
--- NOTE | 2020-08-28 05:19 | NUR ---
PT RESTING WITH EYES CLOSED, AROUSES TO SOFT VERBAL STIMULATION, TRILOGY REMOVED, O2 PLACED BACK ON, ADM 0600 MEDS PER MD ORDERS, SEE EMAR, PT DENIES NEEDS AT THIS TIME
[2020-08-28 07:24] VITALS: BP 115/59
--- NOTE | 2020-08-28 15:39 | NUR ---
CARE TEAM MEETING: PATIENT DAUGHTER ATTENDED THE MEETING. HER QUESTIONS AND CONCERNS WERE ADDRESSED. HIS TENATIVE DC DATE IS 09/03/20. WILL CONTINUE TO FOLLOW WITH PATIENT AND WILL ASSIST WITH DC NEEDS.
[2020-08-28 20:17] VITALS: BP 132/81
--- NOTE | 2020-08-28 22:29 | NUR ---
RESTING IN BED, NO DISTRESS NOTED, O2 PER NC AT 4L, PT WEAK, CONT TO TURN AND POSTION PER STAFF
[2020-08-29 08:07] VITALS: BP 102/45
[2020-08-29 08:12] LABS: ANION GAP 8.4 mmol/L (8-16); CALCIUM 7.7 mg/dL (8.5-10.1); CREATININE - SERUM 1.8 mg/dL (0.6-1.3); POTASSIUM - SERUM 3.4 mmol/L (3.5-5.1)
--- NOTE | 2020-08-29 19:44 | RHP ---
PATIENT: LEONIDES LASSITER MEDICAL RECORD: [id number] ACCOUNT: [id number] LOCATION:[id number] : 49 ADMISSION DATE: 08/21/20 REHABILITATION HISTORY AND PHYSICAL EXAMINATION POST ADMISSION PHYSICIAN EXAMINATION POST ADMISSION PHYSICAL EXAMINATION AND HISTORY AND PHYSICAL ADMITTING DIAGNOSIS: Exacerbation of chronic obstructive pulmonary disease. HISTORY OF PRESENT ILLNESS: The patient is a 75-year-old gentleman who on 08/16/2020 was transferred to the inpatient rehabilitation. He was admitted with critical illness myopathy. He has been in the ICU. The patient was doing well down here became short of breath, desat and required high O2 levels. He was transferred back to acute care. He had OT therapy BiPAP therapy, diuresis and a thoracentesis on 08/20/2020 with 1500 cc of pleural fluid removed. Followup chest x-ray did show improvement. He will still require O2 and BiPAP. The patient's renal functions are stable. Prior to being hospitalized, he apparently was ambulating independently. After several days in rehab and return to [facility], he is able to ambulate 40 feet with a rolling walker. He is ambulating 50 feet with a rolling walker and mod assist. He requires moderate assistance with ADLs and requires strength, endurance, and mobility training. Barriers to his discharge include maintaining his oxygen saturation, fluid balance on diuretic safety awareness and self-care deficits. COMORBIDITIES: Include acute respiratory failure, acute kidney injury, anxiety, bronchitis, coronary artery bypass grafting, constipation, COPD, debility, decreased mobility, peripheral vascular disease. PAST MEDICAL HISTORY: Significant for COPD, bronchitis, shortness of breath, obstructive sleep apnea, chronic rhinitis, coronary artery disease with coronary artery bypass grafting. He has had an AAA, kidney injury, anxiety, anemia, hyperlipidemia, constipation, anxiety, cataracts, chronic back pain. PAST SURGICAL HISTORY: Includes knee surgery, coronary artery bypass grafting and he has had aortobifemoral bypass and repair. ALLERGIES: No known drug allergies. CURRENT MEDICATIONS: Nifedipine 30 mg daily, potassium 20 mEq daily, polyethylene glycol 17 grams in 8 ounces of water daily, Toprol 25 mg daily, omega 3 one cap daily. He is on Lexapro 10 mg daily, aspirin 81 mg daily. He is on vitamin C 1000 mg daily, DuoNeb updraft. He is on Perforomist 20 mcg b.i.d., budesonide 0.5 mg b.i.d., Protonix 40 mg daily, Bumex 2 mg b.i.d. He is on Calmoseptine one application b.i.d., guaifenesin 600 mg b.i.d., Colace 100 mg b.i.d., Clonazepam 0.75 mg t.i.d. p.r.n., Ativan 1 mg q.4 hours. He is on Percocet 5/325 one tab q.6 hours, Haldol 10 mg q.6 hours p.r.n. agitation and acetaminophen p.r.n. HABITS: Does have a history of tobacco use. FAMILY HISTORY: Noncontributory. SOCIAL HISTORY: The patient hopes to return back home and get back to his prior level of functioning. HISTORY AND PHYSICAL [id number] LEONIDES LASSITER REVIEW OF SYSTEMS: GENERAL: He does complain of some weakness and fatigue. HEENT: Denies cold, cough or congestion. CARDIOVASCULAR: Denies any chest pain. PHYSICAL EXAMINATION: VITAL SIGNS: Stable and afebrile. GENERAL: An elderly gentleman, in no acute distress upon exam. HEENT: Normocephalic and atraumatic. Mucosa moist. NECK: Supple. No lymphadenopathy. LUNGS: Clear in the upper har[place] with decreased breath sounds in both bases. CARDIOVASCULAR: Regular rate and rhythm. No murmurs, rubs or gallops. ABDOMEN: Soft, benign, nondistended. Positive bowel sounds times 4. EXTREMITIES: No clubbing or cyanosis. Edema is limited to about 1+ at this time. NEUROLOGIC: He has had diffuse weakness. LABORATORY DATA: His white count is 8.2, H&H are 9.9 and 29.8, and platelet count is noted to be 295. His sodium is 138, potassium 4.1, BUN and creatinine of 53 and 1.7, and blood sugar is noted to be 129. ASSESSMENT: This is a 75-year-old gentleman admitted to the rehab with a working diagnosis of exacerbation of chronic obstructive pulmonary disease, status post aortofemoral bypass grafting. The patient has potential to make improvement. We instituted the following multidisciplinary therapies including, not limited to physical, occupational, respiratory, speech, nutritional services, prosthetics and orthotics. Given his complex medical condition and risks for more complications, rehabilitation services cannot be provided at a low level of care such as senior care facility. PLAN: 1. Admit to [facility] for inpatient therapy to include the following disciplines; A. Physical therapy to improve gait, all transfer skills and bed mobility to a modified independent level. B. Occupational therapy to improve activities of daily living. C. Case management to help with discharge planning and placement options. D. Nutrition to assist with nutritional needs. E. Rehabilitation nursing to assist in monitoring the patient's underlying medical conditions and to assist with any type of bowel or bladder management. 2. The patient's current medication and medical care will be continued. 3. Placed on standard fall precautions. 4. The patient's estimated length of stay is approximately 7-10 days. 5. Discuss this patient during care team staff meeting this week. TRANSINT:[id number] Voice Confirmation ID: [id number] DOCUMENT ID: [id number] EYAD notes whether there has been none or any medical/functional change since admission: - No change since preadmission screen. EYAD attests patient continues to be appropriate for IRF: HISTORY AND PHYSICAL [id number] LEONIDES LASSITER - Continues to be appropriate. MANJINDER MIGUEL MD at 1944 CC: [id number] DICTATION DATE: 08/22/2047 TRUCK RENTAL CLERK: 08/22/20 0948 ADM IN [place] [id number] [place] [id number]
[2020-08-29 19:57] VITALS: BP 106/49
--- NOTE | 2020-08-29 20:07 | NUR ---
AWAKE AND ALERT. O2/3L ON PER NASAL CANNULA. RIGHT FOREARM SALINE LOCK INTACT. NO ACUTE DISTRESS NOTED. CALL LIGHT IN REACH.
--- NOTE | 2020-08-30 05:33 | NUR ---
QUIET HOURS. NO ACUTE CHANGES IN CONDITION THIS SHIFT. O2/3L ON PER NASAL CANNULA. MEDICATED FOR PAIN. SEE MAR. NO ACUTE DISTRESS NOTED. CALL LIGHT IN REACH.
[2020-08-30 06:51] LABS: BASOPHILS 0.3 % (0-2); EOSINOPHILS 4.1 % (0-7); HEMATOCRIT 25.6 % (42.0-54.0); HEMOGLOBIN 8.7 g/dL (13.5-17.5); LYMPHOCYTES 10.5 % (15-50); MCH 31.1 pg (26.0-34.0); MCHC 34.1 g/dL (31.0-37.0); MCV 91.2 fL (80.0-100.0); MEAN PLATELET VOLUME 8.3 fL (7.4-10.4); MONOCYTES 10.1 % (2-11); RBC 2.81 10x6/uL (4.20-6.10); RDW 14.4 % (11.5-14.5); WBC 4.4 10x3/uL (4.8-10.8)
[2020-08-30 06:53] LABS: PLATELET COUNT 118 10x3/uL (130-400)
[2020-08-30 07:03] LABS: ANION GAP 10.5 mmol/L (8-16); CALCIUM 7.8 mg/dL (8.5-10.1); CARBON DIOXIDE 31.9 mmol/L (21.0-32.0); CREATININE - SERUM 1.8 mg/dL (0.6-1.3); POTASSIUM - SERUM 3.4 mmol/L (3.5-5.1)
[2020-08-30 08:57] VITALS: BP 117/48
--- NOTE | 2020-08-30 12:20 | NUR ---
SITTING UP IN WC IN ROOM FOR LUNCH. HAS BEEN WORKING WITH THERAPY THIS MORNING. ENCOURAGED HIM TO STAY OF BUTTOCKS. HE GETS SOB WITH MINIMAL EXERTION AND IS ON OXYGEN 3LNC. PAIN MEDS GIVEN ORDERED AND REQUESTED. CALL LIGHT IN REACH
--- NOTE | 2020-08-30 19:45 | NUR ---
PATIENT RECEIVED SITTING UP IN BED. 02 LEVEL BELOW 90%. NEW HIGH FLOW NASAL CANULA ON 02 SAT 94%. ASSESSMENT & VITAL SIGNS DONE. NO C/O PAIN OR DISTRESS. BED LOW. CALL LIGHT WITHIN REACH. WILL CONTINUE TO MONITOR.
--- NOTE | 2020-08-30 20:00 | NUR ---
PATIENT URINAL EMPTIED OF 400 CC 0F YELLOW COLOR URINE. BED LOW. CALL LIGHT WITHIN REACH. ALARM ON. WILL CONTINUE TO MONITOR.
[2020-08-30 20:07] VITALS: BP 129/48
--- NOTE | 2020-08-30 22:00 | NUR ---
PATIENT USED CALL LIGHT FOR ASSIST. PATIENT GIVEN URINAL. 300 CC OF YELLOW COLOR URINE. BED LOW. ALARM ON. CALL LIGHT WITHIN REACH. WILL CONTINUE TO MONITOR.
--- NOTE | 2020-08-31 03:05 | NUR ---
PATIENT PAIN MEDICATION EFFECTIVE. PATIENT EYES CLOSED. CPAP CONTINUES. URINAL EMPTIED OF 700 CC OF YELLOW COLOR URINE. BED LOW. URINAL & CALL LIGHT WITHIN REACH. ALARM ON. SHAI CONTINUE TO MONITOR.
--- NOTE | 2020-08-31 05:24 | NUR ---
I have reviewed this patient and I concur with the Shift Assessment completed by the Licensed Practical Nurse today this shift.
[2020-08-31 07:00] VITALS: BP 110/52
[2020-08-31 07:03] LABS: ANION GAP 7.4 mmol/L (8-16); CALCIUM 7.5 mg/dL (8.5-10.1); POTASSIUM - SERUM 3.4 mmol/L (3.5-5.1)
--- NOTE | 2020-08-31 08:00 | NUR ---
PT RESTING IN BED WITH EYES OPEN CALL LIGHT IN REACH WILL MONITER
--- NOTE | 2020-08-31 15:00 | NUR ---
PT TURNED TO LEFT SIDE
--- NOTE | 2020-08-31 17:00 | NUR ---
PT TURNED TO RIGHT SIDE
--- NOTE | 2020-08-31 18:30 | NUR ---
PT RESTING IN BED WITH EYES OPEN CALL LIGHT IN REACH WILL MONITER
[2020-08-31 19:00] VITALS: BP 126/54
--- NOTE | 2020-08-31 19:16 | NUR ---
PATIENT RECEIVED SITTING UP IN BED. ASSESSMENT & VITAL SIGNS DONE. NO C/O PAIN OR DISTRESS. BED LOW. CALL LIGHT & BEDSIDE TABLE WITHIN REACH. ALARM ON. WILL CONTINUE TO MONITOR.
--- NOTE | 2020-09-01 00:48 | NUR ---
I have reviewed this patient and I concur with the Shift Assessment completed by the Licensed Practical Nurse today this shift.
--- NOTE | 2020-09-01 03:50 | NUR ---
PATIENT EYES CLOSED. RESPIRATIONS 18 & EVEN. CALL LIGHT & BEDSIDE TABLE WITHIN REACH. WILL CONTINUE TO MONITOR.
[2020-09-01 07:00] VITALS: BP 123/52
--- NOTE | 2020-09-01 07:21 | NUR ---
PT RESTING IN BED WITH EYES OPEN WATCHIN TV CALL LIGHT IN REACH WILL MONITER
--- NOTE | 2020-09-01 18:01 | NUR ---
PT UP IN WHEELCHAIR IN ROOM CALL LIGHT IN REACH NO PROBLEMS WILL MONITER
--- NOTE | 2020-09-01 19:13 | NUR ---
PATIENT RECEIVED SITTING UP IN BED. ASSESSMENT & VITAL SIGNS DONE. NO C/O PAIN OR DISTRESS. BED LOW. ALARM ON. CALL LIGHT & BEDSIDE TABLE WITHIN REACH. WILL CONTINUE TO MONITOR.
[2020-09-01 21:13] VITALS: BP 133/52
--- NOTE | 2020-09-02 00:11 | NUR ---
I have reviewed this patient and I concur with the Shift Assessment completed by the Licensed Practical Nurse today this shift.
[2020-09-02 06:06] LABS: ANION GAP 10.6 mmol/L (8-16); BASOPHILS 0.2 % (0-2); CALCIUM 8.1 mg/dL (8.5-10.1); CARBON DIOXIDE 30.1 mmol/L (21.0-32.0); CREATININE - SERUM 1.7 mg/dL (0.6-1.3); EOSINOPHILS 7.3 % (0-7); HEMOGLOBIN 9.5 g/dL (13.5-17.5); LYMPHOCYTES 18.8 % (15-50); MCH 30.8 pg (26.0-34.0); MCHC 33.9 g/dL (31.0-37.0); MCV 90.8 fL (80.0-100.0); MEAN PLATELET VOLUME 8.4 fL (7.4-10.4); MONOCYTES 4.8 % (2-11); NEUTROPHILS 68.9 % (40-80); POTASSIUM - SERUM 3.7 mmol/L (3.5-5.1); RBC 3.08 10x6/uL (4.20-6.10); RDW 14.4 % (11.5-14.5); WBC 3.5 10x3/uL (4.8-10.8)
[2020-09-02 06:09] LABS: PLATELET COUNT 87 10x3/uL (130-400)
[2020-09-02 06:10] LABS: PLATELET ESTIMATE DECREASED
[2020-09-02 07:26] VITALS: BP 132/53
--- NOTE | 2020-09-02 08:50 | NUR ---
EDUCATED HIM ABOUT TURNING EVERY 2 HOURS. I PUT NATHANIEL TO HIS BOTTOM. HE IS USING HIS IS AND FLUTTER VALVE, THEY ARE ON THE BEDSIDE TABLE. THE CALL LIGHT IS WITHIN REACH AND THE ALARM IS ON.
--- NOTE | 2020-09-02 11:21 | NUR ---
HE IS SETTING UP IN THE BED. I MEASURED THE WOUNDS ON HIS BOTTOM, HAS 2 OF THEM. HE IS WEARING 5 LITERS NC. HE C/O SOB, HIS O2 SAT IS 92%. HE HAS THE RIGHT INCISION TO THE GROIN THAT HAS A SMALL OPENING THAT HAS SOME DRAINAGE. I PLACED A DRESSING OVER IT.
--- NOTE | 2020-09-02 18:57 | NUR ---
BEDSIDE REPORT COMPLETE. RECEIVED PT SITTING UP IN BED. ALERT AND ORIENTED X4. SOB ON 5L/O2 VIA NC. CHECKED O2 SAT 75% PLACED PT ON CPAP AND WAS ABLE TO GET UP IN HIGH 8O'S CALLED RESPIRATORY FOR UPDRAFT. PT IS RESTING AT THIS POINT. SCD ON. RIGHT ABDOMINAL DRESSING INTACT DATED TODAY. MEPILEX INTACT TO COCCYX/BUTTOCKS DATED TODAY WELL. PT DENIES ANY NEEDS OR PAIN. NO DISTRESS AT THIS TIME. CALL LIGHT AND WATER WITHIN REACH. EVERETTE ALARM ON. CPOC
[2020-09-02 20:30] VITALS: BP 121/37
--- NOTE | 2020-09-03 00:42 | NUR ---
DC RIGHT FOREARM IV WITH CATH TIP INTACT. 2X2 PRESSURE DRESSING APPLIED. PT TOLERATED WELL.
--- NOTE | 2020-09-03 01:05 | NUR ---
PT LYING IN BED EYES CLOSED RESTING. HOB 30 DEGREES. CPAP ON . FEVER REDUCED AND BACK TO NORMAL. PT DENIES ANY NEEDS. EVERETTE ALARM ON.
--- NOTE | 2020-09-03 02:56 | NUR ---
PT LYING IN BED PROPPED UP ON RIGHT SIDE EYES CLOSED RESTING. RR EVEN AND UNLABORED. NO DISTRESS NOTED. O2 SAT 92% ON CPAP WITH 5L O2. TEMP 97.9 TEMPORAL. CALL LIGHT WITHIN REACH. EVERETTE ALARM ON
[2020-09-03 05:16] LABS: BASOPHILS 0.4 % (0-2); EOSINOPHILS 2.7 % (0-7); HEMATOCRIT 25.6 % (42.0-54.0); HEMOGLOBIN 8.6 g/dL (13.5-17.5); LYMPHOCYTES 14.1 % (15-50); MCH 30.7 pg (26.0-34.0); MCHC 33.6 g/dL (31.0-37.0); MCV 91.4 fL (80.0-100.0); MEAN PLATELET VOLUME 8.2 fL (7.4-10.4); NEUTROPHILS 76.8 % (40-80); RDW 14.3 % (11.5-14.5); WBC 3.3 10x3/uL (4.8-10.8)
[2020-09-03 05:27] LABS: PLATELET COUNT 88 10x3/uL (130-400); PLATELET ESTIMATE DECREASED
--- NOTE | 2020-09-03 05:29 | NUR ---
PT CALLED FOR ASSIST WITH URINAL, INSTRUCTED PT TO CALL WHEN FINISHED. O2 SAT 93% ON CPAP WITH 05/07L. SOB WITH MOVEMENT IN BED. TEMP 98.2 TEMPORAL. DENIES ANY OTHER NEEDS.
[2020-09-03 05:34] LABS: ANION GAP 11.5 mmol/L (8-16); CALCIUM 8.2 mg/dL (8.5-10.1); CARBON DIOXIDE 28.2 mmol/L (21.0-32.0); CREATININE - SERUM 1.7 mg/dL (0.6-1.3); POTASSIUM - SERUM 3.7 mmol/L (3.5-5.1)
[2020-09-03 08:40] VITALS: BP 126/59
--- NOTE | 2020-09-03 10:19 | NUR ---
HE HAS BEEN ON C-PAP ALL NIGHT, SWITCHED OVER TO 5 LITERS HIGH FLOW THIS MORNING. HE IS SOB, HE TOOK HIS PILLS SLOWLY. I CHANGED THE DRESSING TO THE RIGHT GROIN, IT HAS CREAMY GREENISH DISCHARGE. I APPLIED NATHANIEL TO HIS BOTTOM. HE IS GOING UP STAIRS, WAITING FOR A BED. HE IS CALLING HIS DAUGHTER TO HER HE IS BEING TRANSFERED TODAY.
[2020-09-03] MEDS ORDERED: LEVOFLOXACIN500 MG PO (14:03)
[2020-09-03] MEDS ORDERED: NYSTATIN100000 UN4 PO (14:04)
[2020-09-03] MEDS ORDERED: TORSEMIDE20 MG PO (14:05)
[2020-09-03] MEDS ORDERED: K-DUR20 MEQ PO (14:05)
[2020-09-04 08:46] VITALS: Ht 177.8 cm; Wt 91.6 kg
== END 2020-09-03 13:44 | disposition short-term general hospital (02) | DRG 190 ==
LOC: D.REHAB 17:54
PROVIDERS: Internal Medicine Nephrology; Thoracic Surgery (Cardiothoracic Vascular Surgery); ADMIT Emergency Medicine; ATTEND Emergency Medicine
DX: J44.1 Chronic obstructive pulmonary disease with (acute) exacerbation (principal); J96.00 Acute respiratory failure, unspecified whether with hypoxia or hypercapnia; J18.9 Pneumonia, unspecified organism; N17.9 Acute kidney failure, unspecified; F41.9 Anxiety disorder, unspecified; J40 Bronchitis, not specified as acute or chronic; Z95.1 Presence of aortocoronary bypass graft; K59.00 Constipation, unspecified; R53.81 Other malaise; I73.9 Peripheral vascular disease, unspecified; G47.33 Obstructive sleep apnea (adult) (pediatric); E78.5 Hyperlipidemia, unspecified; D64.9 Anemia, unspecified; I25.10 Atherosclerotic heart disease of native coronary artery without angina pectoris

== ENCOUNTER 2020-09-03 13:43 | Inpatient (IN) | payer MEDICARE, BC ==
[~2020-09-03] VITALS: Ht 177.8 cm; Wt 91.6 kg
[2020-09-03] MEDS ORDERED: LEVOFLOXACIN500 MG PO (14:03)
[2020-09-03] MEDS ORDERED: NYSTATIN100000 UN4 PO (14:04)
[2020-09-03] MEDS ORDERED: K-DUR20 MEQ PO (14:05)
[2020-09-03] MEDS ORDERED: TORSEMIDE20 MG PO (14:05)
[2020-09-03 14:06] VITALS: BP 122/53
[2020-09-03 14:18] VITALS: BP 122/53; BMI 29.0
--- NOTE | 2020-09-03 16:16 | NUR ---
IV STARTED TO RIGHT FA WITH 22 GAUGE X 1 STICK AND FLUSHED WITH NS. LINE IS PATENT.
[2020-09-03 20:00] VITALS: BP 137/63
[2020-09-04] VITALS: BP 131/62
--- NOTE | 2020-09-04 01:01 | NUR ---
I have reviewed this patient and I concur with the Shift Assessment completed by the Licensed Practical Nurse today this shift.
--- NOTE | 2020-09-04 01:52 | NUR ---
RESTING WITH EYES CLOSED. RESPERATIONS EVEN, NO S/S DISTRESS NOTED.
[2020-09-04 04:00] VITALS: BP 117/57
[2020-09-04 06:19] LABS: BASOPHILS 0.3 % (0-2); EOSINOPHILS 5.5 % (0-7); HEMOGLOBIN 8.9 g/dL (13.5-17.5); LYMPHOCYTES 9.9 % (15-50); MCH 30.8 pg (26.0-34.0); MCHC 34.1 g/dL (31.0-37.0); MCV 90.3 fL (80.0-100.0); MEAN PLATELET VOLUME 8.2 fL (7.4-10.4); MONOCYTES 4.7 % (2-11); NEUTROPHILS 79.6 % (40-80); RBC 2.88 10x6/uL (4.20-6.10); RDW 14.3 % (11.5-14.5); WBC 3.6 10x3/uL (4.8-10.8)
[2020-09-04 06:26] LABS: ALBUMIN 2.4 g/dL (3.4-5.0); ANION GAP 10.8 mmol/L (8-16); BILIRUBIN - TOTAL 0.54 mg/dL (0.2-1.3); CALCIUM 7.8 mg/dL (8.5-10.1); CARBON DIOXIDE 30.6 mmol/L (21.0-32.0); CREATININE - SERUM 1.6 mg/dL (0.6-1.3); MAGNESIUM - SERUM 1.8 mg/dL (1.8-2.4); PHOSPHOROUS 3.5 mg/dL (2.5-4.9); POTASSIUM - SERUM 3.4 mmol/L (3.5-5.1); PROTEIN - SERUM 6.1 g/dL (6.4-8.2)
[2020-09-04 06:58] LABS: PLATELET COUNT 108 10x3/uL (130-400)
[2020-09-04 07:33] VITALS: BP 127/54
[2020-09-04 10:22] VITALS: BP 128/56
[2020-09-04 13:39] VITALS: Ht 177.8 cm; Wt 91.6 kg
[2020-09-04 15:15] VITALS: BP 124/56
[2020-09-04 20:00] VITALS: BP 121/49
[2020-09-05] VITALS: BP 144/50
--- NOTE | 2020-09-05 00:23 | NUR ---
RESTING WITH EYES CLOSED, NO S/S DISTRESS NOTED.
--- NOTE | 2020-09-05 01:32 | NUR ---
I have reviewed this patient and I concur with the Shift Assessment completed by the Licensed Practical Nurse today this shift.
[2020-09-05 05:38] VITALS: BP 112/54
[2020-09-05 07:23] LABS: BASOPHILS 0.1 % (0-2); EOSINOPHILS 0.2 % (0-7); HEMATOCRIT 26.2 % (42.0-54.0); HEMOGLOBIN 8.8 g/dL (13.5-17.5); LYMPHOCYTES 7.7 % (15-50); MCH 30.2 pg (26.0-34.0); MCHC 33.5 g/dL (31.0-37.0); MCV 90.4 fL (80.0-100.0); MEAN PLATELET VOLUME 8.6 fL (7.4-10.4); MONOCYTES 7.6 % (2-11); NEUTROPHILS 84.4 % (40-80); RDW 14.5 % (11.5-14.5); WBC 3.3 10x3/uL (4.8-10.8)
[2020-09-05 07:26] LABS: PLATELET COUNT 130 10x3/uL (130-400)
[2020-09-05 07:44] LABS: ALBUMIN 2.5 g/dL (3.4-5.0); ANION GAP 14.3 mmol/L (8-16); BILIRUBIN - TOTAL 0.52 mg/dL (0.2-1.3); CALCIUM 7.7 mg/dL (8.5-10.1); CARBON DIOXIDE 27.4 mmol/L (21.0-32.0); CREATININE - SERUM 1.6 mg/dL (0.6-1.3); MAGNESIUM - SERUM 1.9 mg/dL (1.8-2.4); PHOSPHOROUS 4.2 mg/dL (2.5-4.9); POTASSIUM - SERUM 3.7 mmol/L (3.5-5.1); PROTEIN - SERUM 5.9 g/dL (6.4-8.2)
[2020-09-05 08:50] VITALS: BP 99/90
--- NOTE | 2020-09-05 10:30 | NUR ---
SEE CHANGED TO [facility].
[2020-09-05 13:00] VITALS: BP 110/73
[2020-09-05 15:00] VITALS: BP 117/54
[2020-09-05 21:34] VITALS: BP 115/52
--- NOTE | 2020-09-06 03:14 | NUR ---
I have reviewed this patient and I concur with the Shift Assessment completed by the Licensed Practical Nurse today this shift.
[2020-09-06 05:11] VITALS: BP 108/53
--- NOTE | 2020-09-06 07:19 | NUR ---
RECEIVED BEDSIDE REPORT. PATIENT IS AWAKE AND ALERT. HAS CPAP IN PLACE. OW AT 11L HIGH FLOW. SATS AT 100. RIGHT FOREARM IV INFUSING NS AT [facility]
[2020-09-06 09:00] VITALS: BP 120/58
--- NOTE | 2020-09-06 09:00 | NUR ---
PATIENT AWAKE AND ALERT. NO CURRENT COMPLAINTS AT THIS TIME. RESP EVEN BUT SHORT ON OCCASSION. BREATHING EXERCISES EXPLAINED AND PERFORMED WITH PATIENT. LUNG SOUNDS DIMINISHED IN LOWER LOBES. HEART SOUNDS REGULAR RATE AND RYTHYM. BOWEL SOUNDS ACTIVE. USES URINAL WITH ASSISTANCE. DOES NOT GET OUT OF BED. IV TO R FOREARM PATENT. RIGHT GROIN DRESSING AND STAGE 2 RIGHT BUTTOCKS CLEAN DRY AND INTACT.
[2020-09-06 09:34] LABS: BASOPHILS 0.1 % (0-2); EOSINOPHILS 0.3 % (0-7); HEMATOCRIT 26.5 % (42.0-54.0); HEMOGLOBIN 8.9 g/dL (13.5-17.5); LYMPHOCYTES 5.3 % (15-50); MCH 30.5 pg (26.0-34.0); MCHC 33.7 g/dL (31.0-37.0); MCV 90.6 fL (80.0-100.0); MEAN PLATELET VOLUME 8.2 fL (7.4-10.4); MONOCYTES 4.8 % (2-11); NEUTROPHILS 89.5 % (40-80); RBC 2.93 10x6/uL (4.20-6.10); RDW 14.3 % (11.5-14.5)
[2020-09-06 09:37] LABS: PLATELET COUNT 183 10x3/uL (130-400); WBC 5.6 10x3/uL (4.8-10.8)
[2020-09-06 09:50] LABS: ALBUMIN 2.6 g/dL (3.4-5.0); BILIRUBIN - TOTAL 0.51 mg/dL (0.2-1.3); CARBON DIOXIDE 30.4 mmol/L (21.0-32.0); CREATININE - SERUM 1.8 mg/dL (0.6-1.3); MAGNESIUM - SERUM 1.8 mg/dL (1.8-2.4); PHOSPHOROUS 3.2 mg/dL (2.5-4.9); POTASSIUM - SERUM 3.4 mmol/L (3.5-5.1); PROTEIN - SERUM 6.4 g/dL (6.4-8.2)
--- NOTE | 2020-09-06 11:16 | NUR ---
OT NOTE: ATTEMPTED TMT TODAY, HOWEVER, PT STATING THAT HES HAVING INCREASED SOB.. INFORMED THERAPIST THAT HIS DR TOLD HIM TO ONLY DO WHAT HE FELT THAT HE COULD DO, AND NOT TO PUSH HIMSELF 2/2 TO THE POOR CONDITION OF HIS LUNGS..TOLD PT THAT THERAPY WOULD CONT TO CHECK ON HIM AUNG MORRIS, OTR/L
[2020-09-06 12:00] VITALS: BP 100/56
--- NOTE | 2020-09-06 12:30 | NUR ---
Nutrition Follow-up: Poor appetite/PO intake. Upset that he can not have chocolate ice cream on a renal diet; explained that this is a MD order and would have to be changed by his doctor. Agreed to try Nepro at lunch. Reports no BM over the last few days; +flatus. Diet: Renal PO intake: 25% x 3 yesterday Wt: 202# (09/04) Labs noted: K+ 3.4, BUN 32, Cre 1.8, GFR 39, Glu 149, Ca 8.0, PO4 3.2, Alb 2.6 Meds noted: Florajen, KDur, Solumedrol, Protonix, Colace, Nystatin -Rec liberalize diet to cardiac. K+ is low; receiving KDur. PO4 wnl. -Encourage PO intake and honor food preferences within diet restrictions. -Nepro sent with lunch today. -Monitor wt. -RD will follow up within 3-5 days.
--- NOTE | 2020-09-06 20:16 | NUR ---
INITIAL ROUNDS AND ASSESSMENT COMPLETED. ALERT/ORIENTED. DAUGHTER AT BEDSIDE. IVF AT K[facility]. O2 @ 9L/HFNC WITH SHALLOW, MILD SOB. ASSISTED TO USE URINAL. CALL LIGHT IN REACH.
[2020-09-06 20:59] VITALS: BP 132/58
[2020-09-07 01:58] VITALS: BP 137/64
[2020-09-07 05:02] VITALS: BP 186/72
[2020-09-07 05:37] LABS: BASOPHILS 0.1 % (0-2); EOSINOPHILS 0.3 % (0-7); HEMATOCRIT 27.3 % (42.0-54.0); HEMOGLOBIN 9.1 g/dL (13.5-17.5); LYMPHOCYTES 5.6 % (15-50); MCH 30.1 pg (26.0-34.0); MCHC 33.3 g/dL (31.0-37.0); MCV 90.4 fL (80.0-100.0); MEAN PLATELET VOLUME 8.2 fL (7.4-10.4); MONOCYTES 8.3 % (2-11); NEUTROPHILS 85.7 % (40-80); PLATELET COUNT 211 10x3/uL (130-400); RBC 3.02 10x6/uL (4.20-6.10); RDW 14.2 % (11.5-14.5); WBC 5.7 10x3/uL (4.8-10.8)
[2020-09-07 05:47] LABS: ALBUMIN 2.5 g/dL (3.4-5.0); BILIRUBIN - TOTAL 0.54 mg/dL (0.2-1.3); CALCIUM 8.4 mg/dL (8.5-10.1); CARBON DIOXIDE 29.9 mmol/L (21.0-32.0); CREATININE - SERUM 1.5 mg/dL (0.6-1.3); PHOSPHOROUS 2.8 mg/dL (2.5-4.9); POTASSIUM - SERUM 3.9 mmol/L (3.5-5.1); PROTEIN - SERUM 6.3 g/dL (6.4-8.2)
--- NOTE | 2020-09-07 06:30 | NUR ---
PATIENT AWAKE AND ALERT, RESP EVEN AND UNLABORED AT THIS TIME O2 9L HF. IV TO RIGHT FOREARM PATIENT AND RUNNING NS AT O.
[2020-09-07 08:06] VITALS: BP 146/62
--- NOTE | 2020-09-07 10:22 | NUR ---
PATIENT AWAKE AND ALERT NO CURRENT DISTRESS. HEAD OF BED LOWERED TO PUT PATIENT ON BED PAIN SHORTNESS OF BREATH ON EXERTION HAVING A BOWEL MOVEMENT . PATIENT TAKING LONG DEEP BREATHS THROUGH THE NOSE AND OUT THE MOUTH. O2 SATS BACK UP TO 92 PM 9 L HF. HEART SOUNDS REGULAR RATE AND RYTHYM. LUNG SOUNDS DIMINISHED BILATERAL LOWER. PATIENT NOW BREATHING NORMALLY WITH NO SHORTNESS OF BREATH.
[2020-09-07 12:50] VITALS: BP 139/58
[2020-09-07 20:42] VITALS: BP 125/55
[2020-09-08 01:13] VITALS: BP 149/77
--- NOTE | 2020-09-08 04:48 | NUR ---
PT REFUSED AM LABS.
[2020-09-08 08:23] VITALS: BP 135/70
[2020-09-08 09:24] LABS: ALBUMIN 2.4 g/dL (3.4-5.0); ANION GAP 12.7 mmol/L (8-16); BILIRUBIN - TOTAL 0.58 mg/dL (0.2-1.3); CALCIUM 8.3 mg/dL (8.5-10.1); CARBON DIOXIDE 26.1 mmol/L (21.0-32.0); CREATININE - SERUM 1.3 mg/dL (0.6-1.3); PHOSPHOROUS 2.3 mg/dL (2.5-4.9); POTASSIUM - SERUM 3.8 mmol/L (3.5-5.1)
[2020-09-08 09:36] LABS: BASOPHILS 0 % (0-2); EOSINOPHILS 2.5 % (0-7); HEMATOCRIT 28.5 % (42.0-54.0); HEMOGLOBIN 9.2 g/dL (13.5-17.5); IMMATURE GRANULOCYTES 0.4 % (0-5); LYMPHOCYTE ABS# 0.46 10x3/uL (1.32-3.57); LYMPHOCYTES 8.2 % (15-50); MCH 29.8 pg (26.0-34.0); MCHC 32.3 g/dL (31.0-37.0); MCV 92.2 fL (80.0-100.0); MEAN PLATELET VOLUME 9.8 fL (7.4-10.4); MONOCYTES 6.8 % (2-11); NEUTROPHIL ABS# 4.62 10x3/uL (1.78-5.38); NEUTROPHILS 82.1 % (40-80); PLATELET COUNT 229 10x3/uL (130-400); RBC 3.09 10x6/uL (4.20-6.10); RDW 13.5 % (11.5-14.5); WBC 5.6 10x3/uL (4.8-10.8)
--- NOTE | 2020-09-08 18:12 | NUR ---
I have reviewed this patient and I concur with the Shift Assessment completed by the Licensed Practical Nurse today this shift.
--- NOTE | 2020-09-08 18:36 | NUR ---
I have reviewed this patient and I concur with the Shift Assessment completed by the Licensed Practical Nurse today this shift.
[2020-09-08 20:35] VITALS: BP 138/61
[2020-09-09 01:21] VITALS: BP 139/61
[2020-09-09 05:28] VITALS: BP 144/64
[2020-09-09 09:00] VITALS: BP 103/79
[2020-09-09 12:00] VITALS: BP 110/78
--- NOTE | 2020-09-09 12:53 | NUR ---
OT NOTE: PT HAS BEEN RESISTIVE TO PERFORM ANY EXS SECONDARY TO SOB. TODAY, PT WANTING TO GET TO BS COMMODE; ABLE TO PERFORM BED MOB WITH MOD ASSIST FOR SUPINE TO SIT; SIT TO STAND WITH MOD ASSIST BUT ABLE TO TRANSFER WITH WALKER AND MIN ASSIST TO BS COMMODE; PT ON HIGH FLOW 02 AND BECOMES VERY ANXIOUS WITH ALL MOVEMENTS, EVEN THOUGH HIS SATS ARE IN THE LOW 90S...PT REQIRED MAX ASSIST FOR TOILET HYGIENE; MEPILEX REMOVED FOR THOROUGH CLEANING. PT HAD LARGE BM. NURSING INFORMED OF DRESSING REMOVAL THAT NEEDS TO BE REPLACED. BACK TO BED WITH WALKER AND MIN ASSIST; REQIRED APPROX 5 MIN FOR PT TO SETTLE DOWN AND ALLOW SATS TO IMPROVE FROM 86%-90%..ANXIETY IS A LARGE FACTOR IN THERAPY AT THIS TIME.. AFTER PT WAS FEELING BETTER. HE WAS ABLE TO WASH HANDS ADN FACE WITH WASH CLOTH AND SET UP. AUNG LONG, OTR/L [phone]
[2020-09-09 15:10] LABS: BASOPHILS 0.2 % (0-2); EOSINOPHILS 0.1 % (0-7); HEMATOCRIT 28.5 % (42.0-54.0); HEMOGLOBIN 9.6 g/dL (13.5-17.5); LYMPHOCYTES 4.3 % (15-50); MCH 30.1 pg (26.0-34.0); MCHC 33.6 g/dL (31.0-37.0); MEAN PLATELET VOLUME 7.9 fL (7.4-10.4); MONOCYTES 11.2 % (2-11); NEUTROPHILS 84.2 % (40-80); PLATELET COUNT 267 10x3/uL (130-400); RBC 3.18 10x6/uL (4.20-6.10); RDW 14.3 % (11.5-14.5)
[2020-09-09 15:11] LABS: MCV 89.5 fL (80.0-100.0); WBC 7.4 10x3/uL (4.8-10.8)
[2020-09-09 15:12] LABS: ALBUMIN 2.3 g/dL (3.4-5.0); ANION GAP 12.5 mmol/L (8-16); BILIRUBIN - TOTAL 0.59 mg/dL (0.2-1.3); CALCIUM 8.4 mg/dL (8.5-10.1); CARBON DIOXIDE 23.9 mmol/L (21.0-32.0); CREATININE - SERUM 1.1 mg/dL (0.6-1.3); POTASSIUM - SERUM 4.4 mmol/L (3.5-5.1); PROTEIN - SERUM 5.9 g/dL (6.4-8.2)
--- NOTE | 2020-09-09 19:30 | NUR ---
PT IN BED, AAO X 4, RESP EVEN AND UNLABORED, NO DISTRESS NOTED, CL IN REACH, SR UP X 2.
[2020-09-09 21:22] VITALS: BP 132/54
[2020-09-10 00:04] VITALS: BP 135/56
--- NOTE | 2020-09-10 03:53 | NUR ---
I have reviewed this patient and I concur with the Shift Assessment completed by the Licensed Practical Nurse today this shift.
[2020-09-10 05:10] VITALS: BP 148/70
[2020-09-10 08:00] VITALS: BP 140/68
[2020-09-10 09:07] LABS: ANION GAP 15.9 mmol/L (8-16); CALCIUM 8.5 mg/dL (8.5-10.1); CARBON DIOXIDE 22.9 mmol/L (21.0-32.0); CREATININE - SERUM 1.3 mg/dL (0.6-1.3); POTASSIUM - SERUM 4.8 mmol/L (3.5-5.1)
[2020-09-10 09:12] LABS: ALBUMIN 2.4 g/dL (3.4-5.0); BILIRUBIN - TOTAL 0.55 mg/dL (0.2-1.3); PROTEIN - SERUM 6.1 g/dL (6.4-8.2)
[2020-09-10 09:49] LABS: BASOPHILS 0.3 % (0-2); EOSINOPHILS 0 % (0-7); HEMATOCRIT 30.8 % (42.0-54.0); HEMOGLOBIN 10.1 g/dL (13.5-17.5); LYMPHOCYTES 4.2 % (15-50); MCH 30.1 pg (26.0-34.0); MCHC 32.7 g/dL (31.0-37.0); MEAN PLATELET VOLUME 7.9 fL (7.4-10.4); MONOCYTES 3.8 % (2-11); NEUTROPHILS 91.7 % (40-80); PLATELET COUNT 277 10x3/uL (130-400); RBC 3.35 10x6/uL (4.20-6.10); RDW 14.5 % (11.5-14.5); WBC 5.6 10x3/uL (4.8-10.8)
[2020-09-10 10:12] LABS: MCV 91.9 fL (80.0-100.0)
[2020-09-10 12:00] VITALS: BP 127/59
--- NOTE | 2020-09-10 13:25 | NUR ---
OT NOTE: PT REQUIRES EXTENSIVE ENCOURAGEMENT DUE TO DIFFICULTY BREATHING AND SOB. INITIALLY REFUSES THERAPY, HOWEVER, WITH ENCOURAGEMENT, PT WILL FINALLY AGREE. TODAY PERFORMED BED MOB WITH MIN/MOD ASSIST TO EOB; TRANSFER TO BS COMMODE WITH MIN/MOD ASSIST AND USE OF RW; MAX ASSIST FOR HYGIENE; MEDICINE APPLIED TO BUTTOCKS; TRANSFER BACK TO BED WITH ASSIST; EOB SITTING WITHOUT SUPPORT. PT REPORTED FEELING BETTER SINCE HE GOT UP; PERFORMED UE ROM EXS WITH FREQ REST BREAKS AND CUES FOR BREATHING TECH. EDUCATION ON POSITIONING TO PREVENT FURTHER SKIN BREAKDOWN ON BOTTOM. PT IS ABLE TO ROLL FROM SIDE TO SIDE.. ENCOURAGED TO DO THIS EVERY FEW HOURS.. AUNG MORRIS, OTR/L [id number]
--- NOTE | 2020-09-10 14:01 | NUR ---
Nutrition Reassessment/Follow-up: Appetite improving. Ate breakfast and drank a Boost this AM. Reports drinking ~2 Boost/day. Nursing no longer reporting wound on coccyx. Diet: Cardiac No new wt; last wt: 202# (09/04)IBW: 166# Labs noted: BUN 35, Cre 1.3, GFR 57, Glu 183, Alb 2.4 Meds noted: Solumedrol, Florajen, KDur, Protonix, Nystatin, electrolyte protocol Est needs: 9237-2525 kcal/day (25-30 kcal/kg IBW) 75-90 g protein/day (1-1.2 g/kg IBW) 3237-1786 mL fluid/day (1 mL/kcal) or per MD Nutrition Diagnosis: -Altered nutrition-related lab values R/T COPD on steroids AEB elev Glu. Nutrition Goals: -PO intake >=75% avg of meals/snacks. -Meet est fluid needs without fluid overload. -Stable dry wt. -Glu trending towards normal. Nutrition Intervention: -Monitor Glu; if remains consistently elevated, may consider consistent carb diet. -Encourage PO intake and honor food preferences within diet restrictions. -Need new wt. -RD will follow up within 3 days.
[2020-09-10 16:00] VITALS: BP 123/63
--- NOTE | 2020-09-10 19:30 | NUR ---
PT IN BED, AAO X4, RESP EVEN AND UNLABORED, NO DISTRESS NOTED, FAMILY AT BEDSIDE, CL IN REACH, SR UP X 2.
[2020-09-10 21:21] VITALS: BP 124/56
[2020-09-11] VITALS (7 sets, daily range): BP systolic 114–142; BP diastolic 52–70
--- NOTE | 2020-09-11 04:58 | NUR ---
I have reviewed this patient and I concur with the Shift Assessment completed by the Licensed Practical Nurse today this shift.
[2020-09-11 10:05] LABS: BASOPHILS 0.1 % (0-2); EOSINOPHILS 0 % (0-7); HEMATOCRIT 28.8 % (42.0-54.0); HEMOGLOBIN 9.4 g/dL (13.5-17.5); LYMPHOCYTES 2.8 % (15-50); MCH 30.1 pg (26.0-34.0); MCHC 32.8 g/dL (31.0-37.0); MCV 91.9 fL (80.0-100.0); MEAN PLATELET VOLUME 7.6 fL (7.4-10.4); MONOCYTES 6.4 % (2-11); NEUTROPHILS 90.7 % (40-80); PLATELET COUNT 289 10x3/uL (130-400); RBC 3.13 10x6/uL (4.20-6.10); RDW 14.1 % (11.5-14.5)
[2020-09-11 10:16] LABS: ANION GAP 12.4 mmol/L (8-16); CALCIUM 8.4 mg/dL (8.5-10.1); CREATININE - SERUM 1.2 mg/dL (0.6-1.3); POTASSIUM - SERUM 4.4 mmol/L (3.5-5.1)
[2020-09-11 10:22] LABS: ALBUMIN 2.5 g/dL (3.4-5.0); BILIRUBIN - TOTAL 0.46 mg/dL (0.2-1.3); PROTEIN - SERUM 5.9 g/dL (6.4-8.2)
--- NOTE | 2020-09-11 14:07 | NUR ---
REHAB PRESCREEN ORDER RECEIVED. PATIENT HAS COMPLETED TWO INPATIENT REHAB STAYS IN THE LAST FEW MONTHS. HE WAS NOT ABLE TO PARTICIPATE IN THE 3 HOURS OF REQUIRED THERAPY DURING EITHER STAY AND IT IS FELT THAT HE IS MORE SUITABLE FOR SNF AT THIS TIME IF ANY FURTHER THERAPY IS REQUIRED POST ACUTE. THANK YOU FOR THIS REFERRAL. JOYTI CLINE RN CLINICAL LIAISON, INPATIENT REHAB.
--- NOTE | 2020-09-11 15:47 | NUR ---
OT NOTE: PT COMPLETED SUPINE TO SIT WITH MIN A. PT COMPLETED SIT TO STAND WITH CGA-MIN A. PT REQUIRED EXTRA TIME TO COMPLETE TASKS. PT COMPLETED BED TO BSC TSF WITH CGA-MIN A. PT COMPLETED TOILETING WITH SBA. PT COMPLETED TOILET HYGIENE WITH SETUP. NURSING TREATED SKIN BREAKDOWN ON BUTTOCKS. PT PUT ON RIGHT SIDE TO OFF SET PRESSURE TO BUTTOCKS. CL IN REACH. [phone] AMARILIS BURRELL COTA
--- NOTE | 2020-09-11 16:28 | NUR ---
OT NOTE: (DOS 09-10-2020) PT REQUIRED MOD TO MAX A FOR SUPINE TO SIT. PT COMPLETED SIT TO STAND WITH MOD A. PT REQUIRED TOTAL A FOR LB HYGIENE WITH BM. PT REQUIRED EXTENDED TIME TO COMPLETE TASKS. [phone] THANK YOU,JOE GARAY
--- NOTE | 2020-09-11 19:30 | NUR ---
PT IN BED, RESP EVEN AND UNLABORED, NO DISTRESS NOTED, PT AAO X 4, CL IN REACH, SR UP X 2.
[2020-09-12 05:24] VITALS: BP 141/68
[2020-09-12 06:29] LABS: BASOPHILS 0.2 % (0-2); EOSINOPHILS 0 % (0-7); HEMATOCRIT 27.8 % (42.0-54.0); HEMOGLOBIN 9.3 g/dL (13.5-17.5); MCH 30.4 pg (26.0-34.0); MCHC 33.5 g/dL (31.0-37.0); MCV 90.6 fL (80.0-100.0); MEAN PLATELET VOLUME 7.3 fL (7.4-10.4); MONOCYTES 8.6 % (2-11); NEUTROPHILS 87.2 % (40-80); PLATELET COUNT 283 10x3/uL (130-400); RBC 3.07 10x6/uL (4.20-6.10); RDW 14.6 % (11.5-14.5); WBC 5.7 10x3/uL (4.8-10.8)
--- NOTE | 2020-09-12 06:45 | NUR ---
PATIENT AWAKE AND ALERT. NO CURRENT COMPLAINTS. RESP EVEN AND UNLABORED ON 5L O2. SATS 98 IV TO R FA NS KVO AT 10.
[2020-09-12 07:05] LABS: ALBUMIN 2.5 g/dL (3.4-5.0); ANION GAP 12.6 mmol/L (8-16); BILIRUBIN - TOTAL 0.47 mg/dL (0.2-1.3); CALCIUM 8.6 mg/dL (8.5-10.1); CARBON DIOXIDE 24.4 mmol/L (21.0-32.0); CREATININE - SERUM 1.1 mg/dL (0.6-1.3); MAGNESIUM - SERUM 2.3 mg/dL (1.8-2.4)
[2020-09-12 07:51] VITALS: BP 138/64
--- NOTE | 2020-09-12 08:47 | NUR ---
PATIETN AWAKE AND ALERT. NO CURRENT PAIN OR DISTRESS NOTED. RESP EVEN AND UNLABORED CONTINUES ON 5L O2 NASAL CANNULA. LUNG SOUNDS DIMINISHED IN LOWER LOBES. CRACKLES NOTED. HEART SOUNDS REGULAR RATE AND RYTHYM. MID STERUM INCISION HEALED. PATIENT IS UP WITH ASSIST (PT). USES URINAL. BOWEL SOUNDS ACTIVE BUT SLOW. ABDOMEN SOFT AND NON TENDER.
[2020-09-12 11:41] VITALS: BP 120/72
--- NOTE | 2020-09-12 14:40 | NUR ---
OT NOTE: PT COMPLETED SUPINE TO SIT WITH CGA. PT COMPLETED SITTING AT EOB WITH SBA. PT COMPLETED BED TO BSC TSF WITH CGA USING RW. PT REQUIRED MAX-TOTAL A WITH TOILET HYGIENE. PT COMPLETED HAND HYGIENE WITH SETUP. ALARM ON AND CL IN REACH. [phone] AMARILIS BURERLL COTA
[2020-09-12 16:08] VITALS: BP 130/68
--- NOTE | 2020-09-12 19:30 | NUR ---
PT IN BED, AAO X 4, RESP EVEN AND UNLABORED, NO DISTRESS NOTED, CL IN REACH, SR UP X 2.
[2020-09-12 20:39] VITALS: BP 133/57
[2020-09-13 01:14] VITALS: BP 132/66
[2020-09-13 01:33] VITALS: BP 136/66
[2020-09-13 06:18] LABS: BASOPHILS 0.2 % (0-2); EOSINOPHILS 0 % (0-7); HEMATOCRIT 28.1 % (42.0-54.0); HEMOGLOBIN 9.5 g/dL (13.5-17.5); LYMPHOCYTES 3.7 % (15-50); MCH 30.4 pg (26.0-34.0); MCHC 33.8 g/dL (31.0-37.0); MCV 90.2 fL (80.0-100.0); MEAN PLATELET VOLUME 7.4 fL (7.4-10.4); MONOCYTES 10.8 % (2-11); NEUTROPHILS 85.3 % (40-80); PLATELET COUNT 286 10x3/uL (130-400); RBC 3.12 10x6/uL (4.20-6.10); RDW 14.6 % (11.5-14.5); WBC 6.1 10x3/uL (4.8-10.8)
--- NOTE | 2020-09-13 06:30 | NUR ---
BEDSIDE REPORT RECEIVED. PATIENT IS IMPROVING DAILY. O2 SAT 98 ON 4L. IV TO RIGHT FOREARM PATENT. NO PAIN AT THIS TIME.
[2020-09-13 06:33] LABS: ALBUMIN 2.6 g/dL (3.4-5.0); ALKALINE PHOSPHATASE 87 U/L (30-120); ALT (SGPT) 82 U/L (10-68); BILIRUBIN - TOTAL 0.44 mg/dL (0.2-1.3); CALC OSMOLALITY 284 mosm/kg (275-300); CALCIUM 8.4 mg/dL (8.5-10.1); CARBON DIOXIDE 24.7 mmol/L (21.0-32.0); CHLORIDE - SERUM 105 mmol/L (98-107); GLUCOSE 174 mg/dL (74-106); MAGNESIUM - SERUM 2.5 mg/dL (1.8-2.4); POTASSIUM - SERUM 4.9 mmol/L (3.5-5.1); PROTEIN - SERUM 5.9 g/dL (6.4-8.2); SODIUM 136 mmol/L (136-145); UREA NITROGEN 37 mg/dL (7-18); eGFR NON AFRICAN AMERICAN 78 mL/min (90-120)
--- NOTE | 2020-09-13 09:00 | NUR ---
PATIENT AWAKE ALERT AND ORIENT. ABLE TO MAKE NEEDS KNOWN. RESP EVEN AND UNLABORED. O2 IN USE AT 4L HF. NO SHORTNESS OF BREATH. HEART SOUNDS REGULAR RATE AND RYTHYM. LUNG SOUNDS DIMINISHED IN LOWER LOBES. BOWEL SOUNDS ACTIVE X 4. PATIENT SITTING UP IN CHAIR.
[2020-09-13 11:16] VITALS: BP 104/62
--- NOTE | 2020-09-13 12:57 | NUR ---
Nutrition Consult/Follow-up: Pt reports eating well. Has been ordering some Boost; agreeable to receive it with all meals. No BMs recorded. Glu elevated; receiving Solumedrol. Diet: Cardiac No new wt; last wt: 202# (09/03) Labs noted: Glu 174, Ca 8.4, Mg 2.5, Alb 2.6 Meds noted: Solumedrol, Florajen, KDur, Protonix, Colace, Nystatin, electrolyte protocol -Encourage PO intake and honor food preferences within diet restrictions. -+Boost with meals. -Monitor Glu; if remains consistently elevated, may consider carb consistent diet. -Need new wt. -RD will follow up within 3-5 days.
--- NOTE | 2020-09-13 15:01 | NUR ---
OT NOTE: PT COMPLETED SUPINE TO SIT WITH CGA. PT COMPLETED SIT TO STAND WITH CGA. PT COMPLETED BED TO BSC TSF WITH CGA USING RW. PT COMPLETED TOILETING WITH SBA. PT REQUIRED TOTAL A FOR HYGIENE. PT COMPLETED SITTING AT EOB WITH SBA. PT COMPLETED HAND HYGIENE WITH SETUP. [phone] AMARILIS BURRELL COTA
[2020-09-13 16:04] VITALS: BP 160/59
--- NOTE | 2020-09-13 19:58 | NUR ---
INITIAL ROUNDS AND ASSESSMENT COMPLETED. PT RESTING NO DISTRESS. CALL LIGHT IN REACH. SEE SHIFT ASSESSMENT.
[2020-09-13 20:00] VITALS: BP 134/54
--- NOTE | 2020-09-13 22:55 | NUR ---
ALL BEDTIME MEDS GIVEN. PT RESTING WITH NO DISTRESS. CALL LIGHT IN REACH. SR UP X 2.
--- NOTE | 2020-09-13 22:58 | NUR ---
ALL BEDTIME MEDS GIVEN. PT RESTING WITH NO DISTRESS. CALL LIGHT IN REACH. SR UP X 2.
--- NOTE | 2020-09-13 23:24 | NUR ---
PT HAS BEEN ASSISTED X 3 TO VOID IN URINAL AND THEN EMPTY. HE IS UNABLE TO DO THIS FOR HIMSELF.
[2020-09-14] VITALS (7 sets, daily range): BP systolic 127–143; BP diastolic 53–98
--- NOTE | 2020-09-14 04:11 | NUR ---
RESTING IN BED WITH NO DISTRESS. WEARING O2 @ 4L/HFNC. ASSISTED TO USE URINAL. CALL LIGHT IN REACH. SR UP X 3.
--- NOTE | 2020-09-14 06:50 | NUR ---
BEDSIDE REPORT RECEIVED. NO CURRENT PAIN OR DISTRESS. RESP EVEN AND UNLABORED ON 4L HF. IV TO RIGHT FOREARM PATENT.
[2020-09-14 06:52] LABS: BASOPHILS 0.1 % (0-2); EOSINOPHILS 0 % (0-7); HEMATOCRIT 26.9 % (42.0-54.0); HEMOGLOBIN 9.2 g/dL (13.5-17.5); LYMPHOCYTES 3.8 % (15-50); MCH 30.7 pg (26.0-34.0); MCHC 34.2 g/dL (31.0-37.0); MCV 89.6 fL (80.0-100.0); MEAN PLATELET VOLUME 7.2 fL (7.4-10.4); NEUTROPHILS 86.1 % (40-80); PLATELET COUNT 276 10x3/uL (130-400); RDW 14.5 % (11.5-14.5)
[2020-09-14 06:59] LABS: ALBUMIN 2.6 g/dL (3.4-5.0); ALKALINE PHOSPHATASE 82 U/L (30-120); ALT (SGPT) 76 U/L (10-68); BILIRUBIN - TOTAL 0.43 mg/dL (0.2-1.3); CALC OSMOLALITY 281 mosm/kg (275-300); CALCIUM 8.4 mg/dL (8.5-10.1); CARBON DIOXIDE 25.7 mmol/L (21.0-32.0); CHLORIDE - SERUM 104 mmol/L (98-107); CREATININE - SERUM 0.9 mg/dL (0.6-1.3); GLUCOSE 178 mg/dL (74-106); MAGNESIUM - SERUM 2.3 mg/dL (1.8-2.4); POTASSIUM - SERUM 4.8 mmol/L (3.5-5.1); PROTEIN - SERUM 5.7 g/dL (6.4-8.2); SODIUM 135 mmol/L (136-145); UREA NITROGEN 35 mg/dL (7-18); eGFR NON AFRICAN AMERICAN 88 mL/min (90-120)
[2020-09-14 07:16] LABS: WBC 7.7 10x3/uL (4.8-10.8)
--- NOTE | 2020-09-14 09:30 | NUR ---
PATIENT AWAKE AND ALERT NO CURRENT PAIN OR DISTRESS. RESP EVEN AND UNLABORED ON 4L HF. LUNG SOUNDS CLEAR BUT DIMINISHED IN LOWER LOBES. HEART SOUNDS REGULAR RATE AND RYTHYM ABDOMEN SOFT AND NONTENDER. BOWEL SOUNDS ACTIVE. USES URINAL. BUTTOCK DRESSING CHANGED. CAN MAKE NEEDS KNOWN.
[2020-09-15 06:10] VITALS: BP 146/59
--- NOTE | 2020-09-15 06:30 | NUR ---
RECEIVED BEDSIDE REPORT. NO CURRENT PAIN OR DISTRESS. RESP EVEN AND UNLABORED O2 IN USE AT 4L HF. IV TO RIGHT FOREARM PATENT.
[2020-09-15 06:31] LABS: BASOPHILS 0.3 % (0-2); HEMATOCRIT 27.1 % (42.0-54.0); HEMOGLOBIN 9.1 g/dL (13.5-17.5); LYMPHOCYTES 3.6 % (15-50); MCH 30.3 pg (26.0-34.0); MCHC 33.7 g/dL (31.0-37.0); MEAN PLATELET VOLUME 7.1 fL (7.4-10.4); MONOCYTES 6.4 % (2-11); NEUTROPHILS 88.7 % (40-80); PLATELET COUNT 244 10x3/uL (130-400); RBC 3.01 10x6/uL (4.20-6.10); RDW 14.6 % (11.5-14.5); WBC 8.5 10x3/uL (4.8-10.8)
[2020-09-15 07:58] LABS: ALBUMIN 2.5 g/dL (3.4-5.0); ALKALINE PHOSPHATASE 84 U/L (30-120); ALT (SGPT) 75 U/L (10-68); BILIRUBIN - TOTAL 0.39 mg/dL (0.2-1.3); CALC OSMOLALITY 283 mosm/kg (275-300); CALCIUM 8.4 mg/dL (8.5-10.1); CARBON DIOXIDE 25.5 mmol/L (21.0-32.0); CHLORIDE - SERUM 103 mmol/L (98-107); CREATININE - SERUM 0.9 mg/dL (0.6-1.3); GLUCOSE 214 mg/dL (74-106); MAGNESIUM - SERUM 2.3 mg/dL (1.8-2.4); POTASSIUM - SERUM 4.9 mmol/L (3.5-5.1); PROTEIN - SERUM 5.6 g/dL (6.4-8.2); SODIUM 135 mmol/L (136-145); UREA NITROGEN 34 mg/dL (7-18); eGFR NON AFRICAN AMERICAN 88 mL/min (90-120)
[2020-09-15 08:12] VITALS: BP 113/52
--- NOTE | 2020-09-15 09:30 | NUR ---
PATIENT AWAKE AND ALERT. COMPLAINS OF PAIN. PRN MEDICATION ADMINISTERED. RESP EVEN AND UNLABORED ON 4L HF VIA CANNULA. LUNG SOUNDS CLEAR BUT DIMINISHED IN LOWER LOBES. HEART SOUNDS REGULAR RATE AND RYTHYM. IV TO RIGHT FOREARM PATENT. DRESSING TO GROIN CHANGED. NO SYMPTOMS OF INFECTION NOTED. TURNED PATIENT AND PLACED PILLOW TO LEFT SIDE UNDER BUTTOCKS TO RELIEVE PRESSURE. PATIENT TO DISCHARGE HOME TOMORROW.
[2020-09-15 11:23] VITALS: BP 128/48
--- NOTE | 2020-09-15 15:08 | NUR ---
I have reviewed this patient and I concur with the Shift Assessment completed by the Licensed Practical Nurse today this shift.
[2020-09-15 15:30] VITALS: BP 125/54
[2020-09-15 20:43] VITALS: BP 128/57
[2020-09-16 01:15] VITALS: BP 134/57
[2020-09-16 05:40] LABS: BASOPHILS 0.1 % (0-2); EOSINOPHILS 0 % (0-7); HEMATOCRIT 26.6 % (42.0-54.0); LYMPHOCYTES 3.1 % (15-50); MCH 30.5 pg (26.0-34.0); MCHC 33.9 g/dL (31.0-37.0); MCV 89.9 fL (80.0-100.0); MEAN PLATELET VOLUME 7.1 fL (7.4-10.4); MONOCYTES 7.2 % (2-11); NEUTROPHILS 89.6 % (40-80); PLATELET COUNT 235 10x3/uL (130-400); RBC 2.96 10x6/uL (4.20-6.10); RDW 14.5 % (11.5-14.5)
[2020-09-16 06:02] LABS: ALBUMIN 2.5 g/dL (3.4-5.0); ALKALINE PHOSPHATASE 79 U/L (30-120); ALT (SGPT) 72 U/L (10-68); BILIRUBIN - TOTAL 0.48 mg/dL (0.2-1.3); CALC OSMOLALITY 280 mosm/kg (275-300); CALCIUM 8.1 mg/dL (8.5-10.1); CARBON DIOXIDE 26.6 mmol/L (21.0-32.0); CHLORIDE - SERUM 102 mmol/L (98-107); CREATININE - SERUM 0.9 mg/dL (0.6-1.3); GLUCOSE 190 mg/dL (74-106); MAGNESIUM - SERUM 2.2 mg/dL (1.8-2.4); POTASSIUM - SERUM 4.8 mmol/L (3.5-5.1); PROTEIN - SERUM 5.4 g/dL (6.4-8.2); SODIUM 134 mmol/L (136-145); UREA NITROGEN 36 mg/dL (7-18); eGFR NON AFRICAN AMERICAN 88 mL/min (90-120)
[2020-09-16 06:20] VITALS: BP 123/66
[2020-09-16 06:20] LABS: WBC 10.9 10x3/uL (4.8-10.8)
[2020-09-16 08:06] VITALS: BP 114/48
[2020-09-16 11:06] VITALS: BP 136/60
[2020-09-16] MEDS ORDERED: NYSTATIN100000 UN4 PO (12:36)
[2020-09-16] MEDS ORDERED: IPRAT-ALBUT 0.5-3 ML UPD (12:37)
[2020-09-16] MEDS ORDERED: TESSALON PERLE100 MG PO (12:38)
[2020-09-16] MEDS ORDERED: SINGULAIR10 MG PO (12:39)
[2020-09-16] MEDS ORDERED: MUCINEX DM ER1 EAC1 PO (12:39)
[2020-09-16] MEDS ORDERED: MUCINEX600 MG PO (12:39)
[2020-09-16] MEDS ORDERED: Triple Antibiotic Oi TOPICAL (12:39)
[2020-09-16] MEDS ORDERED: LAC-HYDRIN 5226 ML TOPICAL (12:39)
[2020-09-16] MEDS ORDERED: PREDNISONE10 MG PO (12:59)
--- NOTE | 2020-09-16 15:30 | NUR ---
DC INSTRUCTIONS GIVEN AT THIS TIME. PATIENT 'S DAUGHTER AT BEDSIDE, NEW MEDICATIONS REVIEWED AND STOPPED MEDS REVIEWED WELL. PATIENT RECEIVES O2 TO WEAR ON THE WAY HOME . NAD NOTED.
--- NOTE | 2020-09-16 15:54 | NUR ---
NURSE WHEELS PATIENT OUT TO PRIVATE VEHICLE AT THIS TIME. PATIENT HAS BELONGINGS IN HAND AND HAS HOME O2. PATIENT HAS DAUGHTER DRIVING HIM . NA DNOTED.
--- NOTE | 2020-09-16 18:25 | NUR ---
OT NOTE: PT COMPLETED SUPINE TO SIT WITH SBA-CGA. PT COMPLETED SIT TO STAND WITH SBA-CGA. PT COMPLETED BED TO BSC TSF WITH SBA-CGA USING RW. PT COMPLETED TOILETING WITH SBA-SPV. PT REQUIRED TOTAL A FOR TOILET HYGIENE. PT COMPLETED HAND HYGIENE AT SINK LEVEL WITH SBA-CGA. [phone] THANK YOU,JOE GARAY
--- NOTE | 2020-09-16 18:36 | MORECARE ---
CASE MANAGEMENT DISCHARGE SUMMARY PATIENT: LEONIDES LASSITER UNIT: [id number] ADM DATE: 09/03/20 AGE: 75 : 47 SEX: M ROOM/BED: D.[facility] AUTHOR: KAVITHA,DOC PHYSICIAN: REFERRING PHYSICIAN: MANJINDER MIGUEL MD DATE OF SERVICE: 09/16/20 Case Management Discharge Planning Summary DCP REVIEW SUMMARY ANTICIPATED D/C DATE: EXPECTED LOS : CASE STATUS: DCP Initiated INITIAL REVIEW: 09/03/2020 INITIAL REVIEWER: Amy Serna FINAL DISCHARGE DISPOSITION: : FINAL REVIEWER: FINAL REVIEW DATE: DCP Focus Questions & Answers QUESTION: ANSWER : PATIENT: LEONIDES LASSITER ENCOUNTER: [id number] MEDICAL RECORD#: [id number] ADMISSION DATE: 09/03/2020 DISCHARGE DATE: 09/16/2020 ATTENDING MD: SHAYE CHE : AGE: 75 MARITAL STATUS: M DC PLAN ID: [id number] FACILITY: [facility] PRINTED ON: 09/16/20 18:36 CT All edits/amendments must be made on the electronic document DICTATION DATE: 09/16/201835 METHODS SPECIALIST ENGINEER: DM 09/16/201835 RPT#: [id number] DC DATE:09/16/20 STATUS: DIS IN [facility] [address] [place] [address] END OF REPORT
--- NOTE | 2020-09-17 13:06 | MORECARE ---
CASE MANAGEMENT DISCHARGE SUMMARY PATIENT: LEONIDES LASSITER UNIT: [id number] ADM DATE: 09/03/20 AGE: 75 : 47 SEX: M ROOM/BED: D.1121 AUTHOR: KAVITHA,DOC PHYSICIAN: REFERRING PHYSICIAN: AMNJINDER MIGUEL MD DATE OF SERVICE: 09/17/20 Case Management Discharge Planning Summary COMMENTS ENTERED DATE: 09/17/20 12:57 CT COMMENT TYPE: Discharge Planning REVIEWER: Gabriela Ahmadi CM met with patient to complete discharge planning assessment and offer availability of needed services. Patient states that he lived independently at home prior to going to inpatient rehab. Pt states that he is going home with support of his children. Pt verified that home environment is safe and has electricity and running water. Patient denies need for transportation and state that they have funds for services and medications if needed. PCP is Dr. Zambrano and patient uses [facility] pharmacy. CM offered and discussed home health, rehab services, and need for any medical equipment. Patient did express need for home O2, Home Health with PT eval at this time. Patient does have cpap currently. Equipment was purchased by patient. Transportation home will be provided by patients daughter Estelle Castellanos ([phone]). Patient verbalized understanding of signed forms. IMM served, and signed copy placed on chart. KYLE form signed for additional services or needs at this time, placed on chart. DCP REVIEW SUMMARY ANTICIPATED D/C DATE: 09/16/2020 EXPECTED LOS : 13 CASE STATUS: DCP Initiated INITIAL REVIEW: 09/03/2020 INITIAL REVIEWER: Amy Serna FINAL DISCHARGE DISPOSITION: : FINAL REVIEWER: FINAL REVIEW DATE: NDP Focus Questions & Answers QUESTION: ANSWER : PATIENT: LEONIDES LASSITER ENCOUNTER: [id number] MEDICAL RECORD#: [id number] ADMISSION DATE: 09/03/2020 DISCHARGE DATE: 09/16/2020 ATTENDING MD: SHAYE CHE : AGE: 75 MARITAL STATUS: M DC PLAN ID: [id number] FACILITY: [facility] PRINTED ON: 09/17/20 13:06 CT All edits/amendments must be made on the electronic document DICTATION DATE: 09/17/20 1306 MANUFACTURING TECH: IMANI 09/17/20 1306 RPT#: [id number] DC DATE:09/16/20 STATUS: DIS IN [facility] [address] [place] [address] END OF REPORT
--- NOTE | 2020-09-17 13:19 | MORECARE ---
CASE MANAGEMENT DISCHARGE SUMMARY PATIENT: LEONIDES LASSITER UNIT: [id number] ADM DATE: 09/03/20 AGE: 75 : 47 SEX: M ROOM/BED: D.5537 AUTHOR: KAVITHA,DOC PHYSICIAN: REFERRING PHYSICIAN: MANJINDER MIGUEL MD DATE OF SERVICE: 09/17/20 Case Management Discharge Planning Summary COMMENTS ENTERED DATE: 09/17/20 12:57 CT COMMENT TYPE: Discharge Planning REVIEWER: Gabriela Ahmadi CM met with patient to complete discharge planning assessment and offer availability of needed services. Patient states that he lived independently at home prior to going to inpatient rehab. Pt states that he is going home with support of his children. Pt verified that home environment is safe and has electricity and running water. Patient denies need for transportation and state that they have funds for services and medications if needed. PCP is Dr. Zambrano and patient uses [facility] pharmacy. CM offered and discussed home health, rehab services, and need for any medical equipment. Patient did express need for home O2, Home Health with PT eval at this time. Patient does have cpap currently. Equipment was purchased by patient. Transportation home will be provided by patients daughter Estelle Castellanos ([phone]). Patient verbalized understanding of signed forms. IMM served, and signed copy placed on chart. KYLE form signed for additional services or needs at this time, placed on chart. DCP REVIEW SUMMARY ANTICIPATED D/C DATE: 09/16/2020 EXPECTED LOS : 13 CASE STATUS: DCP Initiated INITIAL REVIEW: 09/03/2020 INITIAL REVIEWER: Amy Serna FINAL DISCHARGE DISPOSITION: : FINAL REVIEWER: FINAL REVIEW DATE: DCP Focus Questions & Answers DCP Screen QUESTION: ANSWER High Risk Factors: : Hosp related to CHF, COPD, DM, End Stage Ds, CVA, CA DCP Evaluation QUESTION: ANSWER Patient and/or caregiver agree upon recommended discharge plan? : Yes Family / Caregiver's ability to cope with chronic illness: : a. Adequate (ability to meet patient's medical needs, ensures patient attends medical appts.) Patient's current cognitive status: : *Oriented to person, place, situation, time and present Patient's ability to cope with chronic illness : d. No chronic illness Does the patient have the ability to pay for or attain post discharge needs / services? : Yes Functional screen assessment: : Basic needs can adequately be met by self Family / Caregiver's ability to cope with chronic illness: : b. Minimal (occasionally not dependable to meet pt's. needs, can meet pt's. basic ADL's) Physical Status: : Independent with ADL's Equipment needed for post hospitalization: : Home Oxygen with Nasal Cannula Is there a likelihood that the patient will require additional services to return to the preadmission environment? : Yes Living Arrangements: : Home Alone with Support Results of this evaluation have been discussed with: : Patient Results of this evaluation have been discussed with: : Children Patient with capacity for self-care or can be cared for in same environment as prior to hospitalization? : Yes Baseline cognitive status: : *Oriented to person, place, situation, time and present Physical environment modification needed / anticipated for discharge: : N/A Medication Management: : Patient states they do have transportation to pickle cutter medications Medication Management: : Patient states can afford medications Planned post hospital services available for patient? : N/A Pharmacy name(s): : [facility] Planned post hospital services covered by insurance plan? : N/A Does Patient have transportation to get home and to follow-up medical appointments when discharged from the hospital? : Yes Would patient like to participate in any Care Coordination programs (if applicable): : Not applicable Does the patient have electricity at home? : Yes Does the patient have running water in their house? : Yes Equipment in use: : CPAP Mental health screen: : No mental health history Psychosocial status: : Independent adult (65+) Abuse/Neglect: : None Resources / Services in place: : Home health Resources / Services in place: : [facility] DCP Re-evaluation QUESTION: ANSWER Would patient like to participate in any Care Coordination programs (if applicable): : Not applicable PATIENT: LEONIDES LASSITER ENCOUNTER: [id number] MEDICAL RECORD#: [id number] ADMISSION DATE: 09/03/2020 DISCHARGE DATE: 09/16/2020 ATTENDING MD: SHAYE CHE : AGE: 75 MARITAL STATUS: M DC PLAN ID: [id number] FACILITY: [facility] PRINTED ON: 09/17/20 13:19 CT All edits/amendments must be made on the electronic document DICTATION DATE: 09/17/20 1319 INCIDENT RESPONSE ANALYST: IMANI 09/17/20 1319 RPT#: [id number] DC DATE:09/16/20 STATUS: DIS IN [facility] [address] [place] [address] END OF REPORT
--- NOTE | 2020-09-18 12:06 | MORECARE ---
CASE MANAGEMENT DISCHARGE SUMMARY PATIENT: LEONIDES LASSITER UNIT: [id number] ADM DATE: 09/03/20 AGE: 75 : 47 SEX: M ROOM/BED: D.0687 AUTHOR: KAVITHA,DOC PHYSICIAN: REFERRING PHYSICIAN: MANJINDER MIGUEL MD DATE OF SERVICE: 09/18/20 Case Management Discharge Planning Summary COMMENTS ENTERED DATE: 09/17/20 12:57 CT COMMENT TYPE: Discharge Planning REVIEWER: Gabriela Ahmadi CM met with patient to complete discharge planning assessment and offer availability of needed services. Patient states that he lived independently at home prior to going to inpatient rehab. Pt states that he is going home with support of his children. Pt verified that home environment is safe and has electricity and running water. Patient denies need for transportation and state that they have funds for services and medications if needed. PCP is Dr. Zambrano and patient uses [facility] pharmacy. CM offered and discussed home health, rehab services, and need for any medical equipment. Patient did express need for home O2, Home Health with PT eval at this time. Patient does have cpap currently. Equipment was purchased by patient. Transportation home will be provided by patients daughter Estelle Castellanos ([phone]). Patient verbalized understanding of signed forms. IMM served, and signed copy placed on chart. KYLE form signed for additional services or needs at this time, placed on chart. DCP REVIEW SUMMARY ANTICIPATED D/C DATE: 09/16/2020 EXPECTED LOS : 13 CASE STATUS: DCP Initiated INITIAL REVIEW: 09/03/2020 INITIAL REVIEWER: Amy Serna FINAL DISCHARGE DISPOSITION: : FINAL REVIEWER: FINAL REVIEW DATE: DCP Focus Questions & Answers DCP Screen QUESTION: ANSWER High Risk Factors: : Hosp related to CHF, COPD, DM, End Stage Ds, CVA, CA DCP Evaluation QUESTION: ANSWER Patient and/or caregiver agree upon recommended discharge plan? : Yes Family / Caregiver's ability to cope with chronic illness: : a. Adequate (ability to meet patient's medical needs, ensures patient attends medical appts.) Patient's current cognitive status: : *Oriented to person, place, situation, time and present Patient's ability to cope with chronic illness : d. No chronic illness Does the patient have the ability to pay for or attain post discharge needs / services? : Yes Functional screen assessment: : Basic needs can adequately be met by self Family / Caregiver's ability to cope with chronic illness: : b. Minimal (occasionally not dependable to meet pt's. needs, can meet pt's. basic ADL's) Physical Status: : Independent with ADL's Equipment needed for post hospitalization: : Home Oxygen with Nasal Cannula Is there a likelihood that the patient will require additional services to return to the preadmission environment? : Yes Living Arrangements: : Home Alone with Support Results of this evaluation have been discussed with: : Patient Results of this evaluation have been discussed with: : Children Patient with capacity for self-care or can be cared for in same environment as prior to hospitalization? : Yes Baseline cognitive status: : *Oriented to person, place, situation, time and present Physical environment modification needed / anticipated for discharge: : N/A Medication Management: : Patient states they do have transportation to poultry picking machine tender medications Medication Management: : Patient states can afford medications Planned post hospital services available for patient? : N/A Pharmacy name(s): : [facility] Planned post hospital services covered by insurance plan? : N/A Does Patient have transportation to get home and to follow-up medical appointments when discharged from the hospital? : Yes Would patient like to participate in any Care Coordination programs (if applicable): : Not applicable Does the patient have electricity at home? : Yes Does the patient have running water in their house? : Yes Equipment in use: : CPAP Mental health screen: : No mental health history Psychosocial status: : Independent adult (65+) Abuse/Neglect: : None Resources / Services in place: : Home health Resources / Services in place: : [facility] DCP Re-evaluation QUESTION: ANSWER Would patient like to participate in any Care Coordination programs (if applicable): : Not applicable PATIENT: LEONIDES LASSITER ENCOUNTER: [id number] MEDICAL RECORD#: [id number] ADMISSION DATE: 09/03/2020 DISCHARGE DATE: 09/16/2020 ATTENDING MD: SHAYE CHE : AGE: 75 MARITAL STATUS: M DC PLAN ID: [id number] FACILITY: [facility] PRINTED ON: 09/18/20 12:06 CT All edits/amendments must be made on the electronic document DICTATION DATE: 09/18/20 1206 PHILOSOPHY AND RELIGION INSTRUCTOR: IMANI 09/18/20 1206 RPT#: [id number] DC DATE:09/16/20 STATUS: DIS IN [facility] [address] [place] [address] END OF REPORT
== END 2020-09-16 15:57 | disposition home health service (06) | DRG 193 ==
LOC: D.M2 13:43
PROVIDERS: Emergency Medicine; Family Medicine; ADMIT Emergency Medicine; ATTEND Emergency Medicine
DX: J18.9 Pneumonia, unspecified organism (principal); J96.21 Acute and chronic respiratory failure with hypoxia; I50.33 Acute on chronic diastolic (congestive) heart failure; G93.41 Metabolic encephalopathy; I13.0 Hypertensive heart and chronic kidney disease with heart failure and stage 1 through stage 4 chronic kidney disease, or unspecified chronic kidney disease; J44.1 Chronic obstructive pulmonary disease with (acute) exacerbation; D61.818 Other pancytopenia; G72.81 Critical illness myopathy; M87.9 Osteonecrosis, unspecified; M87.80 Other osteonecrosis, unspecified bone; N17.9 Acute kidney failure, unspecified; E44.0 Moderate protein-calorie malnutrition; I73.9 Peripheral vascular disease, unspecified; I25.10 Atherosclerotic heart disease of native coronary artery without angina pectoris; I71.4 Abdominal aortic aneurysm, without rupture; E78.5 Hyperlipidemia, unspecified; G89.29 Other chronic pain; M54.9 Dorsalgia, unspecified; J31.0 Chronic rhinitis; F41.9 Anxiety disorder, unspecified; G47.33 Obstructive sleep apnea (adult) (pediatric); N18.9 Chronic kidney disease, unspecified; E87.6 Hypokalemia; L89.152 Pressure ulcer of sacral region, stage 2; D63.1 Anemia in chronic kidney disease; Z87.891 Personal history of nicotine dependence; Z68.28 Body mass index [BMI] 28.0-28.9, adult